=== PATIENT | female | born 1975 | race Caucasian/White ===

== ENCOUNTER 2021-05-29 10:59 | Emergency (ER) | payer BC, SELFPAY ==
[2021-05-29 11:08] VITALS: BP 142/90; PULSE 105; RESP 16; TEMP 35.8; O2SAT 100
--- NOTE | 2021-05-29 13:20 | PC.NURSE ---
PT RE EVAL IN TRIAGE, PT REPORTS ONLY CHANGE THROAT IS GETTING DRY. PT IS ABLE TO SPEAK IN FULL SENTENCE, DENIES SOB, AND ABLE TO MAINTAIN SALIVA.
[2021-05-29 13:22] VITALS: BP 133/73; PULSE 68; RESP 18; TEMP 35.8; O2SAT 90
[2021-05-29 14:54] VITALS: BP 128/63; PULSE 75; RESP 18; TEMP 36.7; O2SAT 100
--- NOTE | 2021-05-29 15:02 | ED.GENADULT ---
HPI - General Adult General Chief complaint: Skin/Abscess/Foreign Body Stated complaint: Pill stuck in throat Time Seen by Provider: 05/29/21 14:52 History of Present Illness HPI narrative: 45-year-old female with history of esophageal stricture and EoE presented to the emergency department for evaluation of a foreign body sensation in her esophagus. Patient states that a few days ago she was swallowing some Tylenol and felt that the pill got stuck. Patient states since that time she has been able to tolerate her own saliva. Patient can also drink liquids and follow a soft food diet. Patient does have follow-up with her GI physician on Friday. Patient does have the diagnosis of EOE. Patient does take omeprazole for this but states over the last few days she has been unable to take the medication. Related Data Allergies Allergy/AdvReac Type Severity Reaction Status Date / Time No Known Allergies Allergy Verified 05/29/21 15:02 Review of Systems Review of Systems: CONSTITUTIONAL: Denies fever, chills, or sweats. ENT: Denies rhinorrhea, congestion, sore throat, or otalgia. CARDIOVASCULAR: Denies chest pain, palpitations, or edema. RESPIRATORY: Denies cough or dyspnea. GASTROINTESTINAL: Denies abdominal pain, nausea, vomiting, or diarrhea. GENITOURINARY: Denies dysuria or hematuria. SKIN: Denies rash or itching. MUSCULOSKELETAL: Denies back pain, joint pain, or myalgia. NEUROLOGIC: Denies headache, numbness, or weakness. PSYCHIATRIC: Denies anxiety or depression. PMFSH Past Medical History Medical History Eosinophilic esophagitis Family History Family History Mother Family history of pancreatic disease Other Diabetes mellitus Family history of mental disorder Social History Social History Smoking status: Never smoker Alcohol intake: current Exam Narrative: APPEARANCE: Well appearing, no pain in distress, well-nourished. Head normocephalic atraumtaic. EYES: PERRLA/EOMI, conjunctivae clear. NOSE: Normal no drainage THROAT: No significant abnormality NECK: Supple. No adenopathy, no masses. SKIN:: Warm, dry. Normal Color PSYCHIATRIC: Normal affect/mood, normal interaction with parents. Course Course Emergency Course: Patient was able to swallow her own saliva in the emergency department. Patient did decline a GI cocktail for symptomatic treatment. Patient also declined a prescription for omeprazole suspension. Patient was unhappy with not getting a scope in the emergency department. I did attempt to explain to her that an emergent endoscopy is not indicated at this point. I did discuss reasons to return to the emergency department including worsening symptoms. I also discussed ways to help improve her symptoms. While patient does have a history of EOE and has required esophageal dilation of the past I think the majority of her symptoms today are possibly due to a pill esophagitis rather than obstruction. Patient states that she will have close follow-up with her GI physician. Vital Signs Vital signs: Vital Signs Temperature 96.4 F L 05/29/21 11:08 Pulse Rate 105 H 05/29/21 11:08 Respiratory Rate 16 05/29/21 11:08 Blood Pressure 142/90 H 05/29/21 11:08 Pulse Oximetry 100 05/29/21 11:08 Temperature 98.1 F 05/29/21 14:54 Pulse Rate 75 05/29/21 14:54 Respiratory Rate 18 05/29/21 14:54 Blood Pressure 128/63 05/29/21 14:54 Pulse Oximetry 100 05/29/21 14:54 Medical Decision Making MDM Narrative Medical decision making narrative: Suspect pill esophagitis. Patient declined a GI cocktail in the emergency department. And patient declined switching her medications to a suspension. Medical Records Medical records reviewed: Yes I reviewed the external patient's medical records. Vital Signs Vital Signs: Vital Signs
--- NOTE | 2021-05-29 15:36 | PC.NURSE ---
Pt at intake desk asking about dc paperwork, pt reports I just went to the bathroom out here and went outside for a walk. Pt given dc instructions and verbalized understanding.
== END 2021-05-29 15:33 | disposition home or self-care (01) ==
PROVIDERS: Emergency Provider Emergency Medicine; PCP Urology
DX: K20.80 Other esophagitis without bleeding (principal); K20.0 Eosinophilic esophagitis
CPT/HCPCS: 99281

== ENCOUNTER 2021-06-25 00:27 | Day surgery (SDC) | payer BC, SELFPAY ==
[2021-06-06 14:31] VITALS: BMI 27.4
[2021-06-25] VITALS (9 sets, daily range): BP systolic 113–134; BP diastolic 67–89; PULSE 50–76; RESP 17–24; TEMP 36.3; O2SAT 99–100
--- NOTE | ~2021-06-25 | XR_ITS ---
EXAMINATION: XR esophogram water soluble DATE: 06/25/2021 14:26 INDICATION: Neck and chest pain after esophageal dilatation. TECHNIQUE: The patient drank water-soluble contrast. Fluoroscopy of the hypopharynx and esophagus was performed. Fluoroscopy exposure time was 1.7 minutes. The total number of images was 756. COMPARISON: None. FINDINGS: There is no mass or stricture of the esophagus. No perforation. Esophageal motility is norm al. There is a small sliding hiatal hernia. IMPRESSION: 1. Small sliding hiatal hernia. Reviewed, dictated and finalized at location A. PATIONAL THERAPY INSTRUCTOR
--- NOTE | 2021-06-25 10:27 | PM.HPGS ---
History of Present Illness History of Present Illness Consent: Risks, benefits, and alternatives have been discussed and questions answered. Patient agrees to proceed with procedure. Chief complaint: dysphagia Narrative: Elizabeth Rayo is a 45 year old female with hx of asthma seen in office for c/o dysphagia. She had an EGD by myself in 2019 with moderate stenosis at the esophageal cardia that was dilated with 15-18 mm balloon which did help for quite some time. Her GE junction and mid-esophageal bx are suggestive of EOE with increased eosinophil greater then 15 per high-power field (recs reviewed). She is currently on omeprazole 40 mg daily. States that over the past 2-3 months that the dysphagia has gotten progressively worse, states it even difficult to swallow water and pills. Reports dysphagia starts in upper to mid-neck area down to mid chest. Reports intermittent vomiting 2/2 dysphagia. Reports increase chronic cough and last 2 days with dry throat in the AM. Reports recent ER visit for Tylenol stuck in throat but was told there was nothing they could do for her and was sent home. She denies any nausea or GERD symptoms. No is a non-smoker. Review of Systems Review of Systems: All systems reviewed & are unremarkable except as noted in HPI and below PMFSH Past Medical History Medical History Asthma Eosinophilic esophagitis Overweight (BMI 25.0-29.9) Family History Family History Mother Family history of pancreatic disease Other Diabetes mellitus Family history of mental disorder Social History Social History Smoking status: Never smoker Alcohol intake: current Alcohol use details: 1 or 2 drinks a year Substance use: never Substance use type: does not use Living arrangements: with family Spiritual care concerns: No Meds Home Medications and Allergies Home Medications Medication Instructions Recorded Confirmed Type albuterol sulfate 90 mcg/actuation 2 puff INHALATION Q4-6H PRN #8.5 g 05/11/21 06/06/21 Rx aerosol inhaler omeprazole 40 mg capsule,delayed 40 mg PO DAILY #30 cap 05/11/21 06/06/21 Rx release fluticasone propionate 220 2 puff INHALATION Q12H 28 Days #12 06/01/21 06/06/21 Rx mcg/actuation HFA aerosol inhaler g Allergies Allergy/AdvReac Type Severity Reaction Status Date / Time No Known Allergies Allergy Verified 06/25/21 12:19 Assessment and Plan Assessment and plan (1) Dysphagia: Code(s): R13.10 - Dysphagia, unspecified Status: Acute Assessment and Plan: EGD with possible biopsy or dilatation or cautery.
--- NOTE | 2021-06-25 12:19 | WPDANESEPPF ---
Anes - Initial Pre Proc Eval Procedure: Operation Date: 06/25/21 13:00 Proposed Procedures p Esophagogastroduodenoscopy - Brent Lincoln MD Date/Time: 06/25/21 12:19 Surgeon: Brent Lincoln MD Pre Op Diagnosis: dysphagia Patient Data Age: 45 Gender: F Height: 1.73 m Weight: 82 kg Allergies Allergy/AdvReac Type Severity Reaction Status Date / Time No Known Allergies Allergy Verified 06/25/21 12:19 Home Medications Medication Instructions Recorded Confirmed Type albuterol sulfate 90 mcg/actuation 2 puff INHALATION Q4-6H PRN #8.5 g 05/11/21 06/06/21 Rx aerosol inhaler omeprazole 40 mg capsule,delayed 40 mg PO DAILY #30 cap 05/11/21 06/06/21 Rx release fluticasone propionate 220 2 puff INHALATION Q12H 28 Days #12 06/01/21 06/06/21 Rx mcg/actuation HFA aerosol inhaler g Patient hx anesthesia problems: none Family hx anesthesia problems: none Results Review: All pre-operative results and documents have been reviewed as part of the pre-operative evaluation. [facility] Past Medical History Medical History (Updated 06/25/21 @ 12:21 by Darshan Deal DO) Asthma Eosinophilic esophagitis Overweight (BMI 25.0-29.9) Family History Family History Mother Family history of pancreatic disease Other Diabetes mellitus Family history of mental disorder Social History Social History Smoking status: Never smoker Alcohol intake: current Alcohol use details: 1 or 2 drinks a year Substance use: never Substance use type: does not use Living arrangements: with family Spiritual care concerns: No Anes - Eval Final PreProcedure Day of Procedure 06/25/21 12:19 Patient weight: overweight Heart: regular rate and rhythm Lungs: clear to auscultation and normal air movement Airway: Mallampati scale class II Neurological: alert and oriented Last oral intake: >/= 8 hours ASA classification: II Emergent: no Anesthetic plan: proceed Anesthesia type and monitoring: general GIVS and standard monitoring Results Review: All pre-operative results and documents have been reviewed as part of the pre-operative evaluation. Informed Consent: The patient's anesthetic plan and its attendant risks and benefits were discussed with the patient/family/POA. Questions were solicited and answers provided to the satisfaction of the patient/family/POA.
[2021-06-25] MEDS: LACTATED RINGERS 1,000 ML 150 ML IV CONT (12:40)
--- NOTE | 2021-06-25 12:58 | SUR.OPER ---
CRE Esophageal Balloon 15-18 lot#[id number], exp. 03/02/2023
--- NOTE | 2021-06-25 13:50 | SUR.PHASEII ---
Pt vomiting after coughing up phlegm. Zofran ordered by Dr. Lincoln. Pt also complains of wheezing upper airway for which she states she takes an albuterol inhaler. Albuterol neb treatment ordered.
[2021-06-25] MEDS: ONDANSETRON INJ 4 MG/2 ML VIAL IV PUSH (13:53)
[2021-06-25] MEDS: ALBUTEROL SULFATE NEB 2.5 MG/3 ML INH 1.25 MG INHALATION (14:03)
--- NOTE | 2021-06-25 14:11 | SUR.PHASEII ---
pt to radiology for esophagram per Dr. Lincoln's order
--- NOTE | 2021-06-25 14:31 | SUR.PHASEII ---
Pt back from radiology. Pt states relief from wheezing upper airway clear to ausculation. Nausea resolved
== END 2021-06-25 14:50 | disposition home or self-care (01) ==
PROVIDERS: PCP Family Medicine; Visit Provider Internal Medicine Gastroenterology
PROC: 0DJ08ZZ Inspection of Upper Intestinal Tract, Via Natural or Artificial Opening Endoscopic (ICD-10-PCS; CPT 43235; principal; 2021-06-25 13:00)
DX: K22.2 Esophageal obstruction (principal); K20.90 Esophagitis, unspecified without bleeding; K20.80 Other esophagitis without bleeding; J45.909 Unspecified asthma, uncomplicated; Z79.51 Long term (current) use of inhaled steroids
CPT/HCPCS: 43249; 43239; 74220; 88305; 94640; C1726; J2405; J2704; J7120

== ENCOUNTER 2021-06-27 10:21 | Emergency (ER) | payer BC, SELFPAY ==
--- NOTE | ~2021-06-27 | XR_ITS ---
XR chest 2V DATE: 06/27/2021 13:27 INDICATION: Spitting up blood. Pain with eating. Endovascular be on 06/25/2021. TECHNIQUE: PA and lateral views COMPARISON: 07/12/2021 water-soluble esophagram FINDINGS: Normal heart size. No hilar or mediastinal enlargement. No pulmonary infiltrate or consolid ation, pleural effusion or pulmonary vascular congestion or pneumothorax. Radiopaque contrast material is noted in the included splenic flexure of the colon from the recent es ophagram procedure. IMPRESSION: No active cardiopulmonary disease Reviewed, dictated and finalized at location A. NESS CENTER MANAGER
--- NOTE | ~2021-06-27 | CT_ITS ---
EXAMINATION: CT abdomen pelvis w con DATE: 06/27/2021 14:40 INDICATION: Epigastric abdominal pain post esophageal dilation TECHNIQUE: Computed tomography (CT) of the abdomen and pelvis was performed with 100 mL Omnipaque-350 intravenous contrast. Automated exposure control and iterative reconstruction technique were employe d. The dose-length product was 544.43 mGy-cm. COMPARISON: None FINDINGS: Lung bases are clear. Heart size is normal. No pericardial or pleural effusion. Gastroesophageal junc tion is unremarkable with no adjacent stranding, fluid or extraluminal gas. A few small cysts measuri ng 4 mm in the right hepatic lobe, left millimeter in the spleen and 5 mm in the right kidney. Gallbl adder, pancreas, left kidney and bilateral adrenal glands are normal. Small bowel is normal with no o bstruction. Oral contrast material seen throughout the normal colon and normal pancreas. Subtle small hypoenhancing uterine fibroids the largest on the anterior fundus measuring 2 cm in maximal diameter . Bladder is normal. 1.4 cm right adnexal cyst/follicle. No free intraperitoneal gas or fluid. No pat hologically enlarged abdominal or pelvic lymphadenopathy. IMPRESSION: 1. No acute intra-abdominal/pelvic process. Specifically gastroesophageal junction appears unremarkab le with no extraluminal stranding, fluid or gas to suggest perforation. 2. Fibroid uterus. Reviewed, dictated and finalized at location B. NT STORAGE WORKER IMPRESSION: 1. No acute intra-abdominal/pelvic process. Specifically gastroesophageal junct ion appears unremarkable with no extraluminal stranding, fluid or gas to sugges t perforation. 2. Fibroid uterus.
[2021-06-27 10:34] VITALS: BP 117/96; PULSE 89; RESP 16; TEMP 37.2; O2SAT 97
[2021-06-27 12:51] VITALS: BP 120/67; PULSE 68; RESP 18; O2SAT 100
--- NOTE | 2021-06-27 12:55 | ECG_ITS ---
Measurements Intervals [place] Rate: 56 P: 24 OR: 184 QRS: 36 QRSD: 89 T: 19 QT: 415 QTc: 403 Interpretive Statements SINUS BRADYCARDIA LOW QRS VOLTAGE IN PRECORDIAL LEADS BASELINE ARTIFACT- II, III BORDERLINE ECG Electronically Signed On 06-27-2021 14:24:07 [employer]CUE by Noel Garcia D.O.
--- NOTE | 2021-06-27 12:56 | ED.GENADULT ---
HPI - General Adult General Chief complaint: Unspecified Stated complaint: post endo pain Time Seen by Provider: 06/27/21 12:47 Source: patient, RN notes reviewed and old records reviewed Mode of arrival: ambulatory Limitations: no limitations History of Present Illness HPI narrative: This is a 45 year old female who presents for evaluation of epigastric pain s/p upper endoscopy. Patient has history of eosinophilic esophagitis and she had an upper endoscopy with dilation performed 2 days ago . She developed epigastric abdominal pain after her endoscopy. She states she had an xray performed after her procedure to evaluated her pain. She was discharged on liquid diet for 1 day and she started eating solids yesterday. Last night she was able to eat small amount of fish. This morning she ate chicken nuggets and her abdominal pain worsened. She states she called Dr. Lantigua's office and she was told to come to ER. She denies nausea, vomiting or fever. She reports brown loose stool yesterday. She also reports coughing small amount pink tinged phlegm today. She denies epistaxis, runny nose, or sinus congestion. She denies taking blood thinning medication Related Data Allergies Allergy/AdvReac Type Severity Reaction Status Date / Time No Known Allergies Allergy Verified 06/25/21 12:19 Review of Systems Review of Systems: All systems reviewed & are unremarkable except as noted in HPI and below PMFSH Past Medical History Medical History (Updated 06/27/21 @ 15:10 by Tequila Cortez MD) Asthma Eosinophilic esophagitis Overweight (BMI 25.0-29.9) Surgical History Surgical History (Updated 06/27/21 @ 13:04 by Tqeuila Cortez MD) H/O tubal ligation Family History Family History Mother Family history of pancreatic disease Other Diabetes mellitus Family history of mental disorder Social History Social History Smoking status: Never smoker Alcohol intake: current Alcohol use details: 1 or 2 drinks a year Substance use: never Substance use type: does not use Spiritual care concerns: No Exam Narrative: GENERAL: Well-appearing, well-nourished, and in no acute distress. HEAD: Normocephalic, atraumatic EYES: PERRLA and EOMI, conjunctiva clear without discharge THROAT:Mucous membranes moist, Oropharynx normal without erythema, exudate, peritonsillar swelling or fluctuance NECK: Supple, without lymphadenopathy or mass RESPIRATORY: No respiratory distress, Airway patent, Respirations non-labored, Clear to auscultation without rales, rhonchi or wheeze HEART: Regular rate and rhythm. No murmur heard. Normal peripheral pulses. ABDOMEN: Soft, nontender, nondistended, normal active bowel sounds. No masses. No rebound or guarding, No organomegaly. EXTREMITIES: No edema, normal strength with full range of motion. SKIN: Warm, dry, normal color without rash NEURO: Alert and oriented x3. CN 2-12 grossly intact. No focal deficits. PSYCH: Normal mood and affect. Course Consultations Consultation #1: I discussed case with Dr. lantigua . Patient's labs and CT are unremarkable. She has no perforation. He recommends patient eat clear liquid until he talks to her tomorrow. Date: 06/27/21 Time: 15:05 Vital Signs Vital signs: Vital Signs Temperature 99 F 06/27/21 10:34 Pulse Rate 89 06/27/21 10:34 Respiratory Rate 16 06/27/21 10:34 Blood Pressure 117/96 H 06/27/21 10:34 Pulse Oximetry 97 06/27/21 10:34 Temperature 99 F 06/27/21 10:34 Pulse Rate 68 06/27/21 12:51 Respiratory Rate 18 06/27/21 12:51 Blood Pressure 120/67 06/27/21 12:51 Pulse Oximetry 100 06/27/21 12:51 Medical Decision Making Vital Signs Vital Signs: Vital Signs Temperature 99 F 06/27/21 10:34 Pulse Rate 89 06/27/21 10:34 Respiratory Rate 16 06/27/21 10:34 Blood Pressure 117/96 H
[2021-06-27 13:26] LABS: Basophils Absolute Auto 0.1 K/mm3 (0.0-0.1); Eosinophils Absolute Auto 0.4 K/mm3 (0-0.3); Eosinophils Percent Auto 5.9 % (0-4.4); Hematocrit 35.5 % (37.0-47.0); Immature Granulocyte Absolute 0.04 K/mm3 (0.00-0.031); Immature Granulocyte Percent A 0.6 % (0-0.5); Lymphocytes Absolute Auto 1.68 K/mm3 (0.9-3.2); Lymphocytes Percent Auto 24.1 % (18.3-44.2); Mean Corpuscular Hemoglobin 26.8 pg (26-34); Mean Corpuscular Volume 86.6 fl (80-100); Mean Platelet Volume 10.2 fl (7.4-10.4); Monocytes Absolute Auto 0.4 K/mm3 (0.1-0.6); Monocytes Percent Auto 5.9 % (2.6-8.5); Neutrophils Absolute Auto 4.4 K/mm3 (1.3-6.7); Neutrophils Percent Auto 62.5 % (45.5-73.1); Platelet Count Result 304 k/mm3 (150-375); Red Cell Distribution Width 15.9 % (11.5-14.5)
[2021-06-27 13:36] LABS: Alanine Aminotransferase 16 U/L (4-35); Albumin Level 4.3 g/dL (3.5-5.1); Alkaline Phosphatase 83 U/L (38-126); Anion Gap 8 mmol/L (8-16); Aspartate Amino Transferase 26 U/L (14-36); Bilirubin,Total 0.7 mg/dL (0.2-1.3); Blood Urea Nitrogen 16 mg/dL (7-17); Calcium 9.1 mg/dL (8.4-10.2); Carbon Dioxide 24 mmol/L (22-30); Chloride 106 mmol/L (98-107); Estimated CRCL calculation 79 ml/min; Estimated Glomerular Filt Rate > 60; Glucose 90 mg/dL (65-110); Lipase 60 U/L (23-300); Potassium 4.1 mmol/L (3.4-5.0); Sodium 138 mmol/L (137-145)
[2021-06-27] MEDS: PANTOPRAZOLE SODIUM IV 40 MG VIAL IV PUSH (13:44)
[2021-06-27 13:57] LABS: Prothrombin Time 13.3 Seconds (11.1-14.7)
[2021-06-27 13:58] LABS: Partial Thromboplastin Time 30.9 SECONDS (22.3-36.8)
== END 2021-06-27 16:29 | disposition home or self-care (01) ==
PROVIDERS: Emergency Provider General Practice
DX: R10.13 Epigastric pain (principal); R00.1 Bradycardia, unspecified; J45.909 Unspecified asthma, uncomplicated
CPT/HCPCS: 36415; 71046; 74177; 80053; 83690; 85025; 85610; 85730; 86850; 86900; 86901; 93005; 96374; 99284; C9113; Q9967

== ENCOUNTER 2022-10-03 10:21 | Emergency (ER) | payer BC, SELFPAY ==
--- NOTE | ~2022-10-03 | CT_ITS ---
EXAMINATION: CT brain wo con DATE: 10/03/2022 12:38 INDICATION: Headache. Dizziness. TECHNIQUE: Computed tomography (CT) of the head was performed without intravenous contrast. The mA wa s adjusted according to patient size. Iterative reconstruction technique was employed. The dose-lengt h product was 605.33 mGy-cm. COMPARISON: Head CT 09/16/2012 FINDINGS: There is no intracranial hemorrhage, acute infarction, or abnormal intracranial mass lesion . The ventricles are normal in size. There is mild mucosal thickening in the paranasal sinuses. There is anteroposterior elongation of the ocular globes. There is a trace right mastoid effusion. IMPRESSION: 1. Normal brain. Reviewed, dictated and finalized at location A. IMPRESSION: 1. Normal brain.
--- NOTE | ~2022-10-03 | XR_ITS ---
EXAMINATION: XR chest 1V DATE: 10/03/2022 12:48 INDICATION: Dizziness. TECHNIQUE: A single frontal view of the chest was obtained. COMPARISON: Chest 2 views 06/27/2021, CT abdomen and pelvis 06/27/2021 FINDINGS: The chest demonstrates clear lungs without pneumonia, pleural effusion, or pneumothorax. Th e heart size is normal. IMPRESSION: 1. No acute cardiopulmonary disease. Reviewed, dictated and finalized at location A.
[2022-10-03 10:22] VITALS: BP 140/82; PULSE 64; RESP 19; O2SAT 99
[2022-10-03 10:51] LABS: Basophils Absolute Auto 0.1 K/mm3 (0.0-0.1); Basophils Percent Auto 1.4 % (0.2-1.2); Eosinophils Absolute Auto 0.4 K/mm3 (0-0.3); Eosinophils Percent Auto 6.5 % (0-4.4); Hematocrit 37.1 % (37.0-47.0); Immature Granulocyte Absolute 0.03 K/mm3 (0.00-0.031); Immature Granulocyte Percent A 0.5 % (0-0.5); Lymphocytes Absolute Auto 1.24 K/mm3 (0.9-3.2); Lymphocytes Percent Auto 21.8 % (18.3-44.2); Mean Corpuscular HGB Conc 29.6 g/dl (32-36); Mean Corpuscular Hemoglobin 24.2 pg (26-34); Mean Corpuscular Volume 81.5 fl (80-100); Mean Platelet Volume 9.8 fl (7.4-10.4); Monocytes Absolute Auto 0.3 K/mm3 (0.1-0.6); Monocytes Percent Auto 5.8 % (2.6-8.5); Neutrophils Absolute Auto 3.6 K/mm3 (1.3-6.7); Platelet Count Result 283 k/mm3 (150-375); Red Blood Count 4.55 M/mm3 (4.2-5.4); Red Cell Distribution Width 16.6 % (11.5-14.5); White Blood Count 5.7 K/mm3 (4.5-10.0)
[2022-10-03 10:57] LABS: Appearance Urine Clear (Clear); Bilirubin Urine Negative (Negative); Blood Urine Negative (Negative); Color Urine Yellow (Yellow); Glucose Urine UA Negative (Negative); Ketones Urine Negative (Negative); Leukocyte Esterase Ur Negative LEU/UL (Negative); Nitrate Urine Negative (Negative); Protein Urine Negative (Negative); Specific Grav Ur 1.011 (1.001-1.035); Urobilinogen Urine 0.2 mg/dL (<2.0)
[2022-10-03 11:04] LABS: Alanine Aminotransferase 24 U/L (6-35); Albumin Level 4.1 g/dL (3.5-5.1); Alkaline Phosphatase 94 U/L (38-126); Anion Gap 7 mmol/L (8-16); Aspartate Amino Transferase 32 U/L (14-36); Bilirubin,Total 0.9 mg/dL (0.2-1.3); Blood Urea Nitrogen 14 mg/dL (7-17); Calcium 8.7 mg/dL (8.4-10.2); Carbon Dioxide 25 mmol/L (22-30); Chloride 107 mmol/L (98-107); Estimated CRCL calculation 100 ml/min; Estimated Glomerular Filt Rate > 60; Glucose 86 mg/dL (65-110); Lipase 49 U/L (23-300); Potassium 3.8 mmol/L (3.4-5.0); Sodium 139 mmol/L (137-145)
[2022-10-03 11:08] LABS: Add Urine Microscopic? NO
[2022-10-03 11:26] LABS: Anisocytosis 1+ (NORMAL); Hypochromasia 1+ (NORMAL); Platelet Estimate Adequate (Adequate); Schistocytes None Seen (NORMAL)
--- NOTE | 2022-10-03 12:18 | ED.DIZZY ---
HPI - Dizziness General Chief Complaint: Dizziness Stated Complaint: dizziness Time Seen by Provider: 10/03/22 11:45 Source: patient Mode of arrival: ambulatory Limitations: no limitations History of Present Illness HPI Narrative: 47 years old female came to the emergency room because of headache, right occipital radiating to the right frontal for the last 3 weeks, frontal headache gets better on Advil, not occipital one. Headache get worse sometime if she bends over, or laying down on the right side of her head. She denies any aggravating factors. Patient been having intermittent lightheadedness and dizziness last for few minutes today got worse and has been steady since until arrival to the emergency room. The dizziness get worse with head movement, body movement or any movement. In the form of a spinning associated with nausea and vomiting. Patient unable to get up and walk because of the severity of dizziness. She denies any fever, chills, chest pain, shortness of breath, back pain or abdominal pain. Related Data Home Medications Medication Instructions Recorded Confirmed cholecalciferol (vitamin D3) 25 25 mcg PO DAILY 08/27/22 08/27/22 mcg (1,000 unit) capsule multivitamin (Daily Multi-Vitamin 1 tablet PO DAILY 08/27/22 08/27/22 tablet) Allergies Allergy/AdvReac Type Severity Reaction Status Date / Time No Known Allergies Allergy Verified 10/03/22 10:31 Review of Systems Review of Systems: All systems reviewed & are unremarkable except as noted in HPI and below PMFSH Past Medical History Medical History Asthma Eosinophilic esophagitis Overweight (BMI 25.0-29.9) Surgical History Surgical History H/O tubal ligation Family History Family History Mother Family history of pancreatic disease Other Diabetes mellitus Family history of mental disorder Social History Social History Smoking status: Never smoker Alcohol intake: current Alcohol use details: 1 or 2 drinks a year Substance use: never Substance use type: does not use Lack of Transportation: No Lack of Food: Never True Current Housing: I Have Housing Concerned About Future Housing: No Difficulty Paying Gas/Electric Bills: No Difficulty Paying for Meds: No Currently Unemployed: No Education: Trade/Vocational Certificate Difficulty w/ Childcare or Family Care: No Living arrangements: with family Occupation/Education: occupation Gender identity (if verbalized by the patient): Female Spiritual care concerns: No Agree to blood products: Yes Exam Narrative: General appearance: Well-developed, well-nourished Skin: Normal color Head: Diffuse tenderness to right occipital area, no bruises, no hematoma or erythema. Eyes: Clear conjunctiva ENT: Oropharynx normal, ears normal, nose normal Neck: Supple, nontender Chest and respiratory: Airway patent, no respiratory distress, no accessory muscle use Heart: Regular rate/rhythm Abdomen: Soft, nontender, no organomegaly, quiet bowel sounds Vascular: Normal peripheral pulses, normal capillary refill. Musculoskeletal: Normal range of motion, nontender back Neurologic: Alert and oriented ?3, BOARD FILLER is normal as tested, no gross motor deficit Course Vital Signs Vital signs: Vital Signs Pulse Rate 64 10/03/22 10:22 Respiratory Rate 19 10/03/22 10:22 Blood Pressure 140/82 10/03/22 10:22 Pulse Oximetry 99 10/03/22 10:22 Oxygen Delivery Room Air 10/03/22 10:22
--- NOTE | 2022-10-03 12:22 | ECG_ITS ---
Measurements Intervals [place] Rate: 53 P: 44 [place]: 185 QRS: 59 QRSD: 83 T: 52 QT: 439 QTc: 414 Interpretive Statements SINUS BRADYCARDIA WITH SINUS ARRHYTHMIA BORDERLINE ECG COMPARED TO ECG 06/27/2021 14:13:44 SINUS ARRHYTHMIA NOW PRESENT Electronically Signed On 10-04-2022 16:23:15 CDT by Kevin Xiong M.D.
[2022-10-03] MEDS: ONDANSETRON INJ 4 MG/2 ML VIAL 8 MG IV PUSH (12:49)
[2022-10-03] MEDS: diazePAM INJ (*CRX) 10 MG/2 ML SYRINGE 5 MG IV PUSH (12:49)
[2022-10-03] MEDS: MECLIZINE HCL 25 MG TABLET PO (12:50)
[2022-10-03] MEDS: KETOROLAC 30 MG/ML VIAL (*BKC) IV PUSH (13:27)
--- NOTE | 2022-10-03 14:12 | PC.NURSE ---
pt reports no relief of dizziness from medications
[2022-10-03 14:44] VITALS: BP 106/63; PULSE 57; RESP 16; O2SAT 98
--- NOTE | 2022-10-03 15:00 | PC.NURSE ---
pt unable to sit up in bed or stand without feeling dizzy or nauseated. EMILIANO Snell made aware.
[2022-10-03 15:45] VITALS: BP 120/62; PULSE 68; RESP 13; O2SAT 98
== END 2022-10-03 16:08 | disposition home or self-care (01) ==
PROVIDERS: Emergency Provider Emergency Medicine; PCP Family Medicine
DX: R51.9 Headache, unspecified (principal); R42 Dizziness and giddiness; J45.909 Unspecified asthma, uncomplicated; K20.0 Eosinophilic esophagitis; E66.3 Overweight; Z68.29 Body mass index [BMI] 29.0-29.9, adult
CPT/HCPCS: 36415; 70450; 71045; 80053; 81003; 81025; 83690; 85025; 93005; 96374; 96375; 99284; A9270; J1885; J2405; J3360

== ENCOUNTER 2023-07-10 09:01 | Day surgery (SDC) | payer SELFPAY ==
[2023-07-10] VITALS (10 sets, daily range): BP systolic 104–138; BP diastolic 52–84; PULSE 62–76; RESP 16–24; TEMP 37.1; O2SAT 94–100
--- NOTE | ~2023-07-10 | XR_ITS ---
EXAMINATION: XR soft tissue neck DATE: 07/10/2023 12:40 INDICATION: Steak stuck in esophagus. TECHNIQUE: 2 views of the neck soft tissues were obtained. COMPARISON: None. FINDINGS: The adenoids, palatine tonsils, epiglottis, prevertebral soft tissues, and glottis are norm al. There is no radiopaque foreign body. IMPRESSION: 1. Normal neck soft tissues. Reviewed, dictated and finalized at location E. EL RIFLER BROACH
--- NOTE | ~2023-07-10 | XR_ITS ---
EXAMINATION: XR esophogram water soluble DATE: 07/10/2023 12:53 INDICATION: Foreign body sensation in the esophagus TECHNIQUE: The patient drank water-soluble contrast. Fluoroscopic spot radiographs of the esophagus w ere obtained. Fluoroscopy exposure time was 1.0 minutes. A total of 260 fluoroscopic images were rec orded. COMPARISON: None. FINDINGS: There is an intraluminal obstructing approximately 2 x 1.5 x 1.5 cm mass with smooth margin s in the distalmost esophagus consistent with reported history suspicious for an impacted food bolus. No contrast is seen extending beyond the obstructing lesion however patient developed almost immedia te nausea and vomiting at which point the procedure was terminated. The more proximal esophagus appea rs normal with normal mobility. IMPRESSION: 1. 2 x 1.5 x 1.5 cm obstructing intraluminal mass at the distal most esophagus consistent with clinic al history supportive of an impacted food bolus. Reviewed, dictated and finalized at location A. R MAKING MACHINE OPERATOR IMPRESSION: 1. 2 x 1.5 x 1.5 cm obstructing intraluminal mass at the distal most esophagus consistent with clinical history supportive of an impacted food bolus.
[2023-07-10 09:42] LABS: Basophils Absolute Auto 0.1 K/mm3 (0.0-0.1); Basophils Percent Auto 1.4 % (0.2-1.2); Eosinophils Absolute Auto 0.5 K/mm3 (0-0.3); Eosinophils Percent Auto 6.5 % (0-4.4); Hematocrit 38.3 % (37.0-47.0); Hemoglobin 11.1 g/dL (12.0-15.0); Immature Granulocyte Absolute 0.02 K/mm3 (0.00-0.031); Immature Granulocyte Percent A 0.3 % (0-0.5); Lymphocytes Absolute Auto 1.86 K/mm3 (0.9-3.2); Lymphocytes Percent Auto 24.3 % (18.3-44.2); Mean Corpuscular Hemoglobin 23.9 pg (26-34); Mean Corpuscular Volume 82.4 fl (80-100); Mean Platelet Volume 10.3 fl (7.4-10.4); Monocytes Absolute Auto 0.5 K/mm3 (0.1-0.6); Monocytes Percent Auto 6.3 % (2.6-8.5); Neutrophils Absolute Auto 4.7 K/mm3 (1.3-6.7); Neutrophils Percent Auto 61.2 % (45.5-73.1); Platelet Count Result 347 k/mm3 (150-375); Red Blood Count 4.65 M/mm3 (4.2-5.4); White Blood Count 7.7 K/mm3 (4.5-10.0)
[2023-07-10 09:52] LABS: Alanine Aminotransferase 26 U/L (6-35); Albumin Level 4.6 g/dL (3.5-5.1); Alkaline Phosphatase 96 U/L (38-126); Anion Gap 11 mmol/L (8-16); Aspartate Amino Transferase 33 U/L (14-36); Bilirubin,Total 1.3 mg/dL (0.2-1.3); Blood Urea Nitrogen 13 mg/dL (7-17); Calcium 9.6 mg/dL (8.4-10.2); Carbon Dioxide 25 mmol/L (22-30); Chloride 107 mmol/L (98-107); Estimated CRCL calculation 77 ml/min; Estimated Glomerular Filt Rate > 60; Glucose 94 mg/dL (65-110); Lipase 73 U/L (23-300); Potassium 3.8 mmol/L (3.4-5.0); Sodium 143 mmol/L (137-145)
[2023-07-10 10:02] LABS: Appearance Urine Cloudy (Clear); Bacteria Urine Rare /hpf; Bilirubin Urine Negative (Negative); Blood Urine Negative (Negative); Color Urine Yellow (Yellow); Glucose Urine UA Negative (Negative); Ketones Urine Trace mg/dL (Negative); Leukocyte Esterase Ur 1+ LEU/UL (Negative); Nitrate Urine Negative (Negative); Non Pathogenic Casts 0-2; Protein Urine Trace mg/dL (Negative); Specific Grav Ur 1.023 (1.001-1.035); Squamous Epithelial Cell Urine Moderate /hpf (Few); pH Urine 7.5 (5.0-9.0)
[2023-07-10 10:05] LABS: Anisocytosis 1+ (NORMAL); Hypochromasia 1+ (NORMAL); Platelet Estimate Adequate (Adequate); Schistocytes None Seen (NORMAL)
[2023-07-10 10:07] LABS: Add Urine Microscopic? YES
--- NOTE | 2023-07-10 11:11 | ED.GENADULT ---
HPI - General Adult General Chief complaint: Nausea/Vomiting/Diarrhea Stated complaint: n/v, hx EOE Time Seen by Provider: 07/10/23 10:42 History of Present Illness HPI narrative: Elizabeth Rayo is a 47 y/o female with reported hx of EoE Eosinophilic esophagitis ,who reports that she has followed up with Dr. Lincoln with GI and has had to have her esophagus stretched about 3-4 times about every 6 months and she states that now it has been about 8 months to a year since she has followed up. She states she has had some minor symptoms over the past few months but had some insurance issues so held off seeking medical care, however last night she ate steak and she started to feel that something got stuck in her esophagus and vomited and now cannot even keep water down. Related Data Home Medications Medication Instructions Recorded Confirmed cholecalciferol (vitamin D3) 25 25 mcg PO DAILY 08/27/22 08/27/22 mcg (1,000 unit) capsule multivitamin (Daily Multi-Vitamin 1 tablet PO DAILY 08/27/22 08/27/22 tablet) Allergies Allergy/AdvReac Type Severity Reaction Status Date / Time shrimp Allergy Difficulty Verified 07/10/23 14:08 Swallowing Review of Systems Review of Systems: CONSTITUTIONAL: Denies fever, chills, or sweats. EYES: Denies visual changes, redness, or discharge. ENT: Denies rhinorrhea, congestion, sore throat, or otalgia.- Reports she feels that she has some stuck in her esophagus since last night and now is unable to keep anything down, she tries to swallow water and vomits quickly afterwards. CARDIOVASCULAR: Denies chest pain, palpitations, or edema. RESPIRATORY: Denies cough or dyspnea. GASTROINTESTINAL: Denies abdominal pain, nausea, vomiting, or diarrhea. GENITOURINARY: Denies dysuria or hematuria. SKIN: Denies rash or itching. MUSCULOSKELETAL: Denies back pain, joint pain, or myalgia. NEUROLOGIC: Denies headache, numbness, dizziness, or weakness. PSYCHIATRIC: Denies anxiety or depression. [facility] Past Medical History Medical History (Updated 07/10/23 @ 20:15 by Valentina Kevin, ISAIAH) Asthma Eosinophilic esophagitis Food impaction of esophagus Overweight (BMI 25.0-29.9) Surgical History Surgical History H/O tubal ligation Family History Family History Mother Family history of pancreatic disease Other Diabetes mellitus Family history of mental disorder Social History Social History Smoking status: Never smoker Alcohol intake: current Alcohol use details: 1 or 2 drinks a year Substance use: never Substance use type: does not use Lack of Transportation: No Lack of Food: Never True Current Housing: I Have Housing Concerned About Future Housing: No Difficulty Paying Gas/Electric Bills: No Difficulty Paying for Meds: No Currently Unemployed: No Education: Trade/Vocational Certificate Difficulty w/ Childcare or Family Care: No Living arrangements: with family Occupation/Education: occupation Gender identity (if verbalized by the patient): Female Spiritual care concerns: No Agree to blood products: Yes Exam Narrative: GENERAL: Well-appearing, well-nourished, and in no acute distress. HEAD: Normocephalic, atraumatic. EYES: PERRLA and EOMI. ENT: Nares clear, no rhinorrhea or epistaxis. Mucous membranes moist. Oropharynx without tonsillar hypertrophy exudate or other lesions. Bilateral TMs pearly jiménez nonbulging NECK: Supple. No adenopathy or masses. No carotid bruits or JVD CHEST: Clear to auscultation. No respiratory distress. No wheezes rales or rhonchi HEART: Regular rate and rhythm. No murmur heard. Normal peripheral pulses. ABDOMEN: Soft, nontender, nondistended, normal active bowel sounds. EXTREMITIES: Normal range of motion. No edema. SKIN: Warm, dry, no rash. NEURO: No focal deficits.
[2023-07-10 11:22] LABS: Influenza A QL RT-PCR Negative (Negative); Influenza B QL RT-PCR Negative (Negative); SARS-CoV-2 RNA PCR Negative (Negative)
--- NOTE | 2023-07-10 13:27 | PC.NURSE ---
report given to GI lab. they will be down shortly to get pt.
[2023-07-10] MEDS: LACTATED RINGERS 1,000 ML 150 ML IV CONT (14:00)
--- NOTE | 2023-07-10 14:03 | SUR.OPER ---
Patient pre oped in procedure room 2.
--- NOTE | 2023-07-10 14:12 | PM.HPGS ---
History of Present Illness History of Present Illness Consent: Risks, benefits, and alternatives have been discussed and questions answered. Patient agrees to proceed with procedure. Chief complaint: n/v, hx EOE Narrative: Elizabeth Rayo is a 47 year old female with known history of EoE, last EGD with dilatation last year up to 15mm, now using ppi. here with food bolus after had steak last night, still unable to swallow Review of Systems Constitutional: Constitutional: Denies headache(s) and Denies weakness Eyes: Eyes: Denies blurry vision ENT: Reports Normal hearing present, Denies headache(s) and Denies neck pain Cardiovascular: Cardiovascular: Denies chest pain and Denies dyspnea Respiratory: Respiratory: Denies dyspnea Gastrointestinal: Gastrointestinal: Reports no additional gastrointestinal complaints Genitourinary: Genitourinary: Denies dysuria Musculoskeletal: Musculoskeletal: Denies neck pain Integumentary/Breasts: Skin/Breast: Denies dry skin Neurologic: Reports Normal hearing present, Denies headache(s) and Denies weakness Psychiatric: Psychiatric: Denies anxiety Endocrine: Endocrine: Denies change in body appearance Hematologic/Lymphatic: Hematologic/Lymphatic: Denies easy bleeding Allergic/Immunologic: Allergic/Immunologic: Denies urticaria PMFSH Past Medical History Medical History (Updated 07/10/23 @ 14:13 by Ata Rodriguez MD) Asthma Eosinophilic esophagitis Food impaction of esophagus Overweight (BMI 25.0-29.9) Surgical History Surgical History H/O tubal ligation Family History Family History Mother Family history of pancreatic disease Other Diabetes mellitus Family history of mental disorder Social History Social History Smoking status: Never smoker Alcohol intake: current Alcohol use details: 1 or 2 drinks a year Substance use: never Substance use type: does not use Lack of Transportation: No Lack of Food: Never True Current Housing: I Have Housing Concerned About Future Housing: No Difficulty Paying Gas/Electric Bills: No Difficulty Paying for Meds: No Currently Unemployed: No Education: Trade/Vocational Certificate Difficulty w/ Childcare or Family Care: No Living arrangements: with family Occupation/Education: occupation Gender identity (if verbalized by the patient): Female Spiritual care concerns: No Agree to blood products: Yes Meds Home Medications and Allergies Home Medications Medication Instructions Recorded Confirmed Type cholecalciferol (vitamin D3) 25 25 mcg PO DAILY 08/27/22 08/27/22 History mcg (1,000 unit) capsule multivitamin (Daily Multi-Vitamin 1 tablet PO DAILY 08/27/22 08/27/22 History tablet) diazepam 5 mg tablet (Valium) 5 mg PO TID PRN vertigo #14 tabs 10/03/22 Rx meclizine 25 mg chewable tablet 25 mg PO TID #20 tabs 10/03/22 Rx (Antivert) ondansetron HCl 4 mg tablet 4 mg PO Q4H 3 doses #10 tabs 10/03/22 Rx Allergies Allergy/AdvReac Type Severity Reaction Status Date / Time shrimp Allergy Difficulty Verified 07/10/23 14:08 Swallowing Vital Signs Vital Signs - 24 hr 07/10/23 09:08 07/10/23 11:03 07/10/23 13:05 Temperature 98.7 F Pulse Rate 72 69 73 Respiratory Rate 16 18 16 Blood Pressure 128/74 138/66 130/84 Pulse Oximetry 100 99 99 Oxygen Delivery Room Air 07/10/23 14:00 Temperature 98.7 F Pulse Rate 75 Respiratory Rate 22 H Blood Pressure 134/67 Pulse Oximetry 94 Oxygen Delivery Room Air Exam Const: General: comfortable and no acute distress HENMT: Face/Nose/Sinus: Normal nares present Eyes: General: appearance normal, both eyes and all related structures Neck: Neck: no JVD Resp: Auscultation: clear to auscultation bilaterally Cardio: Rate: regular rate
--- NOTE | 2023-07-10 14:18 | WPDANESEPPF ---
Anes - Initial Pre Proc Eval Procedure: Operation Date: 07/10/23 14:00 Proposed Procedures p Esophagogastroduodenoscopy - Ata Rodriguez MD Date/Time: 07/10/23 14:18 Surgeon: Ata Rodriguez MD Pre Op Diagnosis: n/v, hx EOE Patient Data Age: 47 Gender: F Height: 1.75 m Weight: 73 kg Last Vital Signs Temp 98.7 F 07/10/23 14:00 Pulse 75 07/10/23 14:00 Resp 22 H 07/10/23 14:00 BP 134/67 07/10/23 14:00 Pulse Ox 94 07/10/23 14:00 O2 Del Method Room Air 07/10/23 14:00 Allergies Allergy/AdvReac Type Severity Reaction Status Date / Time shrimp Allergy Difficulty Verified 07/10/23 14:08 Swallowing Home Medications Medication Instructions Recorded Confirmed Type cholecalciferol (vitamin D3) 25 25 mcg PO DAILY 08/27/22 08/27/22 History mcg (1,000 unit) capsule multivitamin (Daily Multi-Vitamin 1 tablet PO DAILY 08/27/22 08/27/22 History tablet) diazepam 5 mg tablet (Valium) 5 mg PO TID PRN vertigo #14 tabs 10/03/22 Rx meclizine 25 mg chewable tablet 25 mg PO TID #20 tabs 10/03/22 Rx (Antivert) ondansetron HCl 4 mg tablet 4 mg PO Q4H 3 doses #10 tabs 10/03/22 Rx Laboratory Tests 07/10/23 07/10/23 07/10/23 09:30 09:39 10:35 WBC 7.7 K/mm3 (4.5-10.0) RBC 4.65 M/mm3 (4.2-5.4) Hgb 11.1 L g/dL (12.0-15.0) Hct 38.3 % (37.0-47.0) MCV 82.4 fl (80-100) MCH 23.9 L pg (26-34) MCHC 29.0 L g/dl (32-36) RDW 17.0 H % (11.5-14.5) Plt Count 347 k/mm3 (150-375) MPV 10.3 fl (7.4-10.4) Immature Gran % (Auto) 0.3 % (0-0.5) Neut % (Auto) 61.2 % (45.5-73.1) Lymph % (Auto) 24.3 % (18.3-44.2) [place] % (Auto) 6.3 % (2.6-8.5) Eos % (Auto) 6.5 H % (0-4.4) Baso % (Auto) 1.4 H % (0.2-1.2) Lymph # (Auto) 1.86 K/mm3 (0.9-3.2) [place] # (Auto) 0.5 K/mm3 (0.1-0.6) Eos # (Auto) 0.5 H K/mm3 (0-0.3) Baso # (Auto) 0.1 K/mm3 (0.0-0.1) Abs Immat Gran (auto) 0.02 K/mm3 (0.00-0.031) Absolute Neuts (auto) 4.7 K/mm3 (1.3-6.7) Absolute Nucleated RBC 0.0 K/mm3 (0.0-0.012) Nucleated RBC % 0.0 % (0.0-0.2) Platelet Estimate Adequate (Adequate) Hypochromasia 1+ (NORMAL) Anisocytosis 1+ (NORMAL) Schistocytes None seen (NORMAL) Sodium 143 mmol/L (137-145) Potassium 3.8 mmol/L (3.4-5.0) Chloride 107 mmol/L (98-107) Carbon Dioxide 25 mmol/L (22-30) Anion Gap 11 mmol/L (8-16) BUN 13 mg/dL (7-17) Creatinine 0.80 mg/dL (0.7-1.0) Estim Creat Clear Calc 77 ml/min Estimated GFR > 60 (59 - ) Glucose 94 mg/dL (65-110) Calcium 9.6 mg/dL (8.4-10.2) Total Bilirubin 1.3 mg/dL (0.2-1.3) AST 33 U/L (14-36) ALT 26 U/L (6-35) Alkaline Phosphatase 96 U/L (38-126) Total Protein 8.0 g/dL (6.3-8.2) Albumin 4.6 g/dL (3.5-5.1) Lipase 73 U/L (23-300) Urine Color Yellow (Yellow) Urine Appearance Cloudy H (Clear) Urine pH 7.5 (5.0-9.0) Ur Specific [place] 1.023 (1.001-1.035) Urine Protein Trace mg/dL (Negative) Urine Glucose (UA) Negative mg/dL (Negative) Urine Ketones Trace H mg/dL (Negative) Ur Blood (Man) Negative (Negative) Urine Nitrate Negative (Negative) Urine Bilirubin Negative (Negative) Urine Urobilinogen 1.0 mg/dL (<2.0) Leukocyte Esterase Rfl 1+ H CHRIS/UL (Negative) Urine RBC 3-5 H /hpf (0-2) Urine WBC 6-10 H /hpf Ur Squamous Epith Cells Moderate /hpf (Few) Urine Bacteria Rar
--- NOTE | 2023-07-10 14:24 | SUR.OPER ---
Oral suction used by DEPARTMENT HELPER during procedure for excess secretions.
--- NOTE | 2023-07-10 15:42 | SUR.PHASEII ---
1520: PT EXPLAINED TO NURSE THAT SHE HAD BEEN ASKED IN THE EMERGENCY ROOM IF SHE FELT SAFE AT HOME AND SHE REPLIED YES. PT STATES THAT SHE WOULD LIKE IT DOCUMENTED THAT SHE LIVES AT HOME WITH A NARCISSISTIC . THEY ARE LIVING ON DIFFERENT FLOORS OF THE HOUSE. SHE HAD ASKED HIM TO BRING HER TO THE E.R. YESTERDAY AND HE REFUSED. SINCE HE FOUND OUT THAT PT CAME TO THE HOSPITAL WITH HER STEP DAD, HE HAS SENT HER NASTY TEXT MESSAGES AND IS CLAIMING HE IS GOING TO SHUT OFF HER PHONE AND TAKE AWAY HER INSURANCE. PT CLAIMS SHE DOES NOT WANT TO GO HOME TO BUT HER QUAKER DOES NOT ALLOW DIVORCE. RN ENCOURAGED PT TO STAY WITH HER MOM THIS EVENING. PT STATES SHE IS STILL GOING TO GO HOME. PT STATES SHE FEELS PHYSICALLY SAFE AT HOME BUT WOULD LIKE SOME HELP IN REGARDS TO HOW TO HANDLE THE SITUATION. THUMB SEWER ABBY AND PERSONAL CARE WORKER ESTELA BOTH NOTIFIED. PHONE NUMBERS FOR THE NATIONAL [place] AND [place] [employer] WERE RECEIVED AND GIVEN TO PT. PT STATES UNDERSTANDING AND STATES SHE WILL CALL THEM.
== END 2023-07-10 15:40 | disposition home or self-care (01) ==
LOC: ANHED 13:44 → ANHSURGERY 13:54 → ANHENDO 14:51
PROVIDERS: Emergency Medicine; Emergency Provider Nurse Practitioner Family; PCP Family Medicine; Visit Provider Internal Medicine Gastroenterology
PROC: 0DJ08ZZ Inspection of Upper Intestinal Tract, Via Natural or Artificial Opening Endoscopic (ICD-10-PCS; CPT 43235; principal; 2023-07-10 14:00)
DX: T18.128A Food in esophagus causing other injury, initial encounter (principal); W44.F3XA Food entering into or through a natural orifice, initial encounter; K20.0 Eosinophilic esophagitis; K29.50 Unspecified chronic gastritis without bleeding; Z79.899 Other long term (current) drug therapy
CPT/HCPCS: 43247; 43239; 36415; 70360; 74220; 80053; 81001; 83690; 85025; 87086; 87636; 88305; 99285; J0330; J2704; J7120

== ENCOUNTER 2023-11-06 08:01 | Outpatient (CLI) | payer OTHER, SELFPAY ==
--- NOTE | ~2023-11-06 | MMUS_ITS ---
EXAMINATION: MM diagnostic alley BI w yunier, US breast RT limited HISTORY: Right breast lump at 12:00 under clavicle for 6 months. According to the patient the physici an felt a lump in the left lower inner quadrant. TECHNIQUE: Bilateral full field and spot left ML, MLO and CC 3-D tomosynthesis images and were perfor med and synthetic 2-D images were generated. Magnification ML view of right breast. CAD analysis was submitted and interpreted. High resolution targeted right breast ultrasound was performed. COMPARISON: 04/04/2017 outside left diagnostic mammogram 07/30/2016 left galactogram 06/27/2016 bilateral screening mammogram FINDINGS: MAMMOGRAPHIC FINDINGS: There is a history of prior bilateral reduction mammoplasty. At the area of clinical complaint of right breast lump beneath the clavicle there is an approximately 4 x 6 mm circumscribed opacity with multiple microcalcifications. The calcifications favor the appea denise of popcorn-like calcifications associated with fibroadenoma, but this lesion wasn't evident on prior mammogram in 2016. No suspicious mass, architectural distortion, malignant calcification, skin thickening or retraction or significant new or developing density of either breast is noted otherwise. ULTRASOUND: Targeted right breast ultrasound at the area of clinical complaint reveals a superficial subdermal ap proximately 2.9 x 7 x 5.7 mm circumscribed hypoechoic lesion with some calcifications. There is some posterior shadowing which may be due to the calcifications. There is minimal internal vascularity on color flow imaging. IMPRESSION: 1. New approximately 4 x 6 mm mass with multiple microcalcifications at the area of clinical complain t of recent breast lump at right upper chest wall 2. Consider ultrasound-guided biopsy BI-RADS category 4, suspicious findings. Reviewed, dictated and finalized at location C. IMPRESSION: 1. New approximately 4 x 6 mm mass with multiple microcalcifications at the are a of clinical complaint of recent breast lump at right upper chest wall 2. Consider ultrasound-guided biopsy BI-RADS category 4, suspicious findings.
== END 2023-11-06 08:02 ==
LOC: MICIMG 08:03
PROVIDERS: PCP Nurse Practitioner Women's Health; Visit Provider Nurse Practitioner Women's Health
DX: N63.24 Unspecified lump in the left breast, lower inner quadrant (principal); N63.10 Unspecified lump in the right breast, unspecified quadrant; R92.8 Other abnormal and inconclusive findings on diagnostic imaging of breast
CPT/HCPCS: 76642; 77062; 77066; G0279

== ENCOUNTER 2023-11-06 09:36 | Outpatient (CLI) | payer OTHER, SELFPAY ==
--- NOTE | ~2023-11-06 | US_ITS ---
EXAMINATION: US pelvic complete w TV DATE: 11/06/2023 10:07 INDICATION: Frequent menstruation. TECHNIQUE: Multiple transabdominal and transvaginal sonographic images of the pelvis were obtained. COMPARISON: CT abdomen pelvis 06/27/2021 FINDINGS: TRANSABDOMINAL ULTRASOUND: The uterus measures 9.7 x 4.9 x 6.6 cm. There is no free fluid in the pelvis. TRANSVAGINAL ULTRASOUND: The endometrial complex measures 6 mm in thickness. There is a 2.7 cm intramural fibroid. There is a 1.8 cm subserosal fibroid. There is a 2.6 cm intramural fibroid. The right ovary measures 1.3 x 1.5 x 2.7 cm. The left ovary 2.2 x 1.0 x 1.7 cm. There is normal vascular flow in the ovaries. IMPRESSION: 1. Uterine fibroids. Reviewed, dictated and finalized at location E. IMPRESSION: 1. Uterine fibroids.
== END 2023-11-06 09:37 ==
LOC: MICIMG 09:37
PROVIDERS: PCP Nurse Practitioner Women's Health; Visit Provider Nurse Practitioner Women's Health
DX: D25.1 Intramural leiomyoma of uterus (principal); D25.2 Subserosal leiomyoma of uterus; N92.0 Excessive and frequent menstruation with regular cycle
CPT/HCPCS: 76830; 76856

== ENCOUNTER 2024-01-02 16:42 | Outpatient (CLI) | payer OTHER, SELFPAY ==
--- NOTE | ~2024-01-02 | MR_ITS ---
EXAMINATION: MR shoulder LT wo con DATE: 01/02/2024 17:52 INDICATION: Left rotator cuff tear. Left shoulder injury. TECHNIQUE: Magnetic resonance imaging (MRI) of the left shoulder shoulder was performed without intra venous contrast. Sequences included axial PD-weighted FS FSE, coronal oblique PD-weighted FS FSE and T2-weighted FS FSE, and sagittal oblique T2-weighted FS FSE and T1-weighted FSE. COMPARISON: None. FINDINGS: Coracoacromial arch: The acromion undersurface is flat in morphology (type I). There is mild acromioclavicular joint osteo arthritis. There is mild subacromial/subdeltoid bursitis. Rotator cuff: There is mild supraspinatus and infraspinatus tendinopathy. Teres minor tendon is normal. There is mi ld subscapularis tendinopathy. No tear. The rotator cuff muscle bellies are normal. Biceps tendon and glenoid labrum: Biceps tendon is in bicipital groove. Intra-articular biceps tendon is normal. The glenoid labrum is normal. Fluid: There is no glenohumeral joint effusion. Bones/cartilage: Glenoid cartilage is normal. Humeral head cartilage is normal. IMPRESSION: 1. Mild rotator cuff tendinopathy. No tear. 2. Mild subacromial/subdeltoid bursitis. 3. Mild acromioclavicular joint osteoarthritis. Reviewed, dictated and finalized at location E.
== END 2024-01-02 16:43 | disposition home or self-care (01) ==
LOC: ANHIMG 17:00
PROVIDERS: PCP Family Medicine; Visit Provider Family Medicine
DX: M75.32 Calcific tendinitis of left shoulder (principal); M75.52 Bursitis of left shoulder; M19.012 Primary osteoarthritis, left shoulder
CPT/HCPCS: 73221

== ENCOUNTER 2024-09-19 06:59 | Emergency (ER) | payer OTHER, SELFPAY ==
--- NOTE | ~2024-09-19 | CT_ITS ---
History: Lower back pain with left-sided paresthesias PROCEDURE: CT lumbar spine without intravenous contrast. COMPARISON: None. Reference is made to CT examination of the abdomen and pelvis dated 06/27/2021 TECHNIQUE: Multiple contiguous axial images of the lumbar spine were performed without the administration of int ravenous contrast. DLP: 641 mGy-cm FINDINGS: Straightening of the normal lordotic curvature of the lumbar spine is identified, possibly muscular i n origin. No acute compression fractures are present. No soft tissue abnormality is noted. Impression: Straightening of the normal lordotic curvature of the lumbar spine, likely muscular in origin. No acute compression fracture. Reviewed, dictated and finalized at location A. Impression: Straightening of the normal lordotic curvature of the lumbar spine, likely musc ular in origin. No acute compression fracture.
[2024-09-19 07:01] VITALS: BP 136/58; PULSE 63; RESP 18; TEMP 36.2; O2SAT 100
--- OUTSIDE RECORDS SUMMARY | 2024-09-19 07:02 | XMS_ITS | Clinical Summary ---
Author Organization [facility] Address [address] [place] [address] Phone Care Team Providers Care Design Draftsman Name Role Phone Provider, None Primary Care Provider Unavailabl e Allergies No known active allergies Medications No known medications Immunizations Immunization Administration Dates Next Due Covid-19, Mrna, Lnp-s, Pf, 30 Mcg/0.3 Ml Dose (P fizer) 11/24/2020,11/03/2020 Social History Tobacco Use Types Packs/Day Years Used Date Smoking Tobacco: Never Smokeless Tobacco: Never Alcohol Use Standard Drinks/Week Comments Yes 0 (1 standard drink = 0.6 oz pur e alcohol) occassion Comments No Sex and Gender Information Value Date Recorded Sex Assigned at Not on file Legal Sex Female 8:31 PM CDT Gender Identity Not on file Sexual Orientation Not on file Last Filed Vital Signs Vital Sign Reading Time Taken Comments Blood Pressure 110/44 04/06/2020 1:45 AM CDT Pulse 70 04/06/2020 1:45 AM CDT Temperature 35.9 C (96.6 F) 04/05/2020 11:01 PM CDT Respiratory Rate - - Oxygen Saturation 99% 04/06/2020 1:45 AM CDT Inhaled Oxygen Concentration - - Weight 84.4 kg (186 lb) 04/05/2020 11:01 PM CDT Height 175.3 cm (5' 9 ) 04/05/2020 11:01 PM CDT Body Mass Index 27.47 04/05/2020 11:01 PM CDT Plan of Treatment Health Maintenance Due Date Last Done Comments Hepatitis C Virus (HCV) Screening 1973 TdaP Immunization 1973 Hepatitis B Immunization (1 of 3 - 19+ 3-dose series) 1992 Colonoscopy 2018 Colorectal Cancer Screening 2018 Cologuard 2023 Immunochemical Fecal Occult Blood 2023 Pneumococcal Immunization (5 0+ years) (1 of 1 - PCV) 2023 Zoster Immunization (1 of 2) 2023 Influenza Immunization (#1) 2024 SARS-COV-2 Immunization (3 - season) 2024 11/24/2020, 11/03/2020 Respiratory Syncytial Virus (RSV) Immunization (Adult) (1 - 1-dose 75+ series) 2048 Meningococcal Immunization (ACWY) Aged Out No longer eligible b ased on patient's age to complete this topic Rotavirus Immunization Aged Out No lo nger eligible based on patient's age to complete this topic Insurance MEDICAID [place] Care Teams Design Draftsman Relationship Specialty Start Date End Date Provider, None [place] PCP - General 04/05/20
--- OUTSIDE RECORDS SUMMARY | 2024-09-19 07:02 | XMS_ITS | Clinical Summary ---
Author Organization [facility] Address [facility] [place] [address] Care Team Providers Care Patient Educator Name Role Phone Arnol Cintron MD Primary Care Provider [phone] Dale Wallace MD,PHD Unavailable Unavail able Allergies Active Allergy Reactions Criticality Noted Date Comments Bacid Anaphylaxis High 12/06/2021 Medications CALCIUM OR Take 1 tablet by mouth as needed. Active VITAMIN D OR Take by mouth as needed. Active Magnesium 200 MG Chew Tab Chew 1 tablet by mouth daily. Active B Complex Cap capsule Take 1 capsule by mouth daily. Active Iron Carbonyl-Vitami n C-FOS (CHEWABLE IRON) 30-10-25 MG Chew Tab Chew 1 tablet by mouth daily. Active Active Problems Problem Noted Date Diagnosed Date Chest pain 07/06/2019 GERD (gastroesophageal reflux disease) 0 Migraines 07/06/2019 SOB (shortness of breath) 07/06/2019 Palpitations 07/06/2019 Family History * Patient is adopted Medical History Relation Comments No Known Problems Father Diabetes Maternal Grandmother No Known Problems Mother No Known Problems Sister 1 No Known Problems Sister 2 Relation Status Comments Father Alive Maternal Grandmother Mother Alive Sister 1 Alive Sister 2 Alive Social History Tobacco Use Types Packs/Day Years Used Date Smoking Tobacco: Never Smokeless Tobacco: Never Alcohol Use Standard Drinks/Week Comments Yes 1.7 (1 standard drink = 0.6 oz p ure alcohol) rarely Comments No Sex and Gender Information Value Date Recorded Sex Assigned at Not on file Legal Sex Female 11:22 PM CDT Gender Identity Not on file Sexual Orientation Not on file 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 Not on file Not on file Last Filed Vital Signs Vital Sign Reading Time Taken Comments Blood Pressure 110/72 10/28/2022 9:19 AM CDT Pulse 63 10/28/2022 9:19 AM CDT Temperature 36.7 C (98.1 F) 12/06/2021 11:41 AM CDT Respiratory Rate 20 12/06/2021 3:30 PM CDT Oxygen Saturation 94% 12/06/2021 3:30 PM CDT Inhaled Oxygen Concentration - - Weight 88.5 kg (195 lb) 10/28/2022 9:19 AM CDT Height 175.3 cm (5' 9 ) 10/28/2022 9:19 AM CDT Body Mass Index 28.8 10/28/2022 9:19 AM CDT Plan of Treatment Health Maintenance Due Date Last Done Comments Cervical Cancer Screening Pa p Smear (Age 30 to 64) Every 3 Years 1973 Colorectal Cancer Screening Colonoscopy (10 Years) 1973 Annual Physical 1976 Hepatitis C 1991 DTaP, Tdap and Td Vaccines ( 1 - Tdap) 1992 Hepatitis B Vaccines (1 of 3 - 19+ 3-dose series) 1992 Cervical Cancer Screening Pa p with HPV Testing (Age 30 to 64) Every 5 Years [address] [facility] HPV 2003 Mammogram Screening 2013 Zoster Vaccines (1 of 2) 2023 COVID-19 Vaccine (2023-2 5 season) 2024 11/24/2020, 11/03/2020 Influenza Adult (#1) 2024 Meningococcal B Vaccine Aged Out No l onger eligible based on patient's age to complete this topic Meningococcal Vaccine Aged Out No charley jamal eligible based on patient's age to complete this topic Pneumococcal Vaccine: Pediatrics (0 to 5 Years) and At-Risk Patients (6 to 64 Years) Aged Out No longer eligible b ased on patient's age to complete this topic RSV Immunizations Under 20 Months Aged Out No longer eligible b ased on patient's age to complete this topic Insurance [facility] [employer] Advance Directives Documents on File Type Date Recorded 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 FOR HB BILLS FOR [place] FOR [employer] Advance Directives and Living Will 07/06/2019 10:48 AM Care Teams Patient Educator Relationship Specialty Start Date End Date Arnol Cintron MD [address] [place] [address] PCP - General FAMILY PRACTICE 06/30/19 Dale Wallace MD,PHD [address] [place] [address] Physician CARDIOVASCULAR DISEASE 10/28/22
--- OUTSIDE RECORDS SUMMARY | 2024-09-19 07:02 | XMS_ITS | Data Portability ---
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 She has had pain and weakness in the shoulder since. She denies any previous injuries or other issues with the shoulder. She initially rested it for about a week with some improvement, but then tried to move some furniture again and the shoulder got much worse. Since injury, she has been wearing a sling, taking Tylenol, using ice and heat. She currently rates her pain as 7/10. She is right-hand dominant. She is unable to take oral anti-inflammator ies because of esophagitis. Review of systems per patient questionnaire Physical exam: She has diffuse soreness around the shoulder. Tenderness over the anterior shoulder and biceps groove. She has active elevation to 90, passive to 120, twenty external rotation, internal rotation to back pocket. She is guarded with exam, has discomfort and 5- out of 5 strength with elevation and external rotation. Positive Live Oak's. Positive Neer and Jackson. X-rays were reviewed, demonstrating no acute bony abnormality, preserved joint space. Previous MRI was reviewed, demonstrating intact rotator cuff with tendinitis. She does have a SLAP tear. We will begin her on a course of conservative management with physical therapy and topical Voltaren. We will keep her restricted with no lifting pushing or pulling of the left arm. We will see her back in 6 weeks after the course of treatment. At that time, we will discuss a cortisone injection if no improvement. She is in agreement with the plan. Not available 01/07/2024 13:40:59 02/18/2024 02/18/2024 48-year-old female presents for re-evaluation of her left shoulder. 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 She has had pain and weakness in the shoulder since. She has been attending PT. She feels that the shoulder is getting better, especially range of motion. but is still sore with certain movements and lifting. She is up to lifting 10lbs in therapy. She feels that she would benefit from more therapy sessions. Physical exam: Tenderness over the anterior shoulder and biceps groove. ROM 130/30/back pocket. 5/5 rotator cuff strength. + jobes. sensation intact. We will renew her physical therapy. We will keep her restricted with no lifting pushing or pulling of the left arm. We will see her back in 4-6 weeks after the course of treatment. At that time we anticipate she will be able to return to work full duty. Not available 02/18/2024 11:13:17 03/24/2024 03/24/2024 48-year-old female presents for re-evaluation of her left shoulder. 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 She had pain and weakness in the shoulder afterwards. She has been attending PT. She feels that the shoulder is continuing to get better. She is still sore with lifting and feels tightness reaching across her chest. She is up to lifting 25lbs in therapy. She feels that she would benefit from more therapy sessions. Physical exam: Tenderness over the anterior shoulder and biceps groove. ROM 140/40/lower lumbar. 5/5 rotator cuff strength. Sensation intact. She would like to continue with therapy. She is no longer working at her place of injury. We will see her back in 4-6 weeks after more therapy to check her progress. She is in agreement with this plan. Not available 03/24/2024 13:38:10 04/28/2024 04/28/2024 48-year-old female presents for follow-up of her left shoulder. She has been doing better, finished her PT, having no pain good motion. Her only complaint is when she reaches across her body she feels a little bit of stiffness. She has some soreness over the AC joint. No tenderness elsewhere around the shoulder. Range of motion 150/30/lower lumbar. 5/5 rotator cuff strength. Negative Live Oak's. She reproduces the pain when she is reaching across her opposite shoulder. At this point she has minimal pain and full range of motion. She has no restrictions and may return to work full duty without limitations. She is at [employer]. Follow up as needed. Not available 04/28/2024 09:28:19 Plan of Treatment Reminders Order Date Submit Date Provider Last Modified By Organization Details Last Modified Time Details Appointments None recorded. Lab None recorded. Referral physical therapist referral - [facility] 2023 024 [facility] - [address], [address], 14:59:15 physical therapist referral - EVAL AND TREATInjury Date 10/13/2023I njured Body Part L SHOULDERWor ker's Comp Bacteriology Research Assistant JUDITH Willson 2023 024 [facility] - [address], [address], 17:29:49 Procedures None recorded. Surgeries None recorded. Imaging None recorded. Medication Orders None recorded. Patient TargetsNo targets recorded. Patient InstructionsNo instructions recorded. Reason for Referral Physical Therapist Referral for Pain of left shoulder joint EVAL AND TREATInjury Date 10/13/2023Injured Body Part L SHOULDERWorker's Comp JUDITH Roca Referring Physician: Jabari Powell, Orthopedic Surgery, Encounter Date: 01/07/2024 Physical Therapist Referral for Anterior to posterior tear of superior glenoid labrum of left shoulder [facility] Referring Physician: Zhanna Kaur, Orthopedic Surgery, Encounter Date: 02/18/2024 Results Created Date Observation Date Name Description Value Unit Range Abnormal Flag Note LastModifiedBy Organization Detail LastModifiedTime 12/17/19 24 11/05/2023 XR, shoul desiree No observ ation record ed. [email or web address] Not Available 2023 13:51:55 01/05/20 24 01/02/2024 MRI, shoul desiree, w/o contr ast No observ ation record ed. [email or web address] Not Available 12/21 13:57:59 01/07/20 24 11/05/2023 XR, shoul desiree No observ ation record ed. Not Available 2023 09:42:23 Result Notes None recorded. Problems Name Problem SNOMED Code Status Onset Date Resolution Date Notes Provider Name and Address Organization Details Recorded Time Pain of left shoulder joint 07662243237136 109 Active 2023 ZOHAIB Heck [facility] 10:01:34 Anterior to posterior tear of superior glenoid labrum of left shoulder 92517498446752 108 Active 2023 Jabari Powell MD [address] [place] [address], [phone] [facility] 13:41:40 Problem Notes None recorded. Procedures Surgical History Date Name Laterality Status Provider Name and Address Organization Details Recorded Time Tubal Ligation completed Jadyn suárez [facility]NA [facility] 01/07/2024 10:00:23 Breast reduction completed Jadyn Stevens [facility]NA [facility] 01/07/2024 10:00:38 Knee arthroscopy/devin nohemy completed Jadyn Stevens [facility]NA [facility] 01/07/2024 10:00:54 Imaging Results Imaging Date Name Status LastModified by Organiz ation Details LastModified Time 11/05/2023 XR, shoulder completed [email or web address] Information not available 12/17/2023 13:51:55 01/02/2024 MRI, shoulder, w/o contrast completed [email or web address] Information not available 01/05/2024 13:57:59 11/05/2023 XR, shoulder completed [email or web address] Information not available 01/07/2024 09:42:23 Procedure Notes None recorded. Medical Equipment None Reported. Allergies No known drug allergies Medications Name Sig Start Date Stop Date Status Note LastModified by Organization Details LastModified Time omeprazole 40 mg capsule,del ayed release TAKE 1 CAPSULE BY MOUTH EVERY DAY 01/06 completed Not Available Not Available Not Available triamcinolo ne acetonide 0.1 % topical ointment APPLY OINTMENT TOPICALLY TO AFFECTED AREA TWICE DAILY FOR 10 DAYS 01/06 completed Not Available Not Available Not Available amoxicillin 400 mg/5 mL oral suspension TAKE 10.9 ML BY MOUTH TWICE DAILY FOR 10 DAYS , DISCARD THE REMAINING AMOUNT 01/06 completed Not Available Not Available Not Available methylpredn isolone 4 mg tablets in a dose pack TAKE BY MOUTH DIRECTED ON INSIDE OF PACKAGE 01/06 completed Not Available Not Available Not Available Vitals Date Recorded Body height Body mass index (BMI) Body weight Provider Name and Address Organization Details Last Updated DateTime 01/07/2024 175.26 cm 26.6 kg/m2 04337.63 g Jadyn Stevens [facility]NA [facility] 01/07/2024 09:58:43 Date Recorded Body height Body mass index (BMI) Body weight Pain severity - 0-10 verbal numeric rating [Score] - Reported Provider Name and Address Organization Details Last Updated DateTime 02/18/2024 175.26 cm 26.6 kg/m2 22949.63 g STEVEN Caro [facility] 02/18/2024 10:18:27 Date Recorded Body height Provider Name an d Address Organization Details Last Updated DateTime 03/24/2024 175.26 cm Elianemaegan Dietrich [facility] 03/24/2024 09:33:23 Date Recorded Body height Body mass index (BMI) Body weight Provider Name and Address Organization Details Last Updated DateTime 04/28/2024 175.26 cm 26.6 kg/m2 76439.63 g Jadyn Stevens [facility]NA [facility] 04/28/2024 09:15:36 Social History Question Answer Notes LastModified by Organizat ion Details LastModified Time Tobacco Smoking Status Never Smoker Jadyn StevensZOHAIB null, [place] [facility] 01/07/2024 10:00:08 What Is Your Level Of Alcohol Consumption? None [email or web address] Information not available 01/07/2024 Sex: Unknown Functional Status None recorded. Mental Status None recorded. Family History Nothing Reported. Medical History No medical history recorded. Gynecological HistoryNo gynecological history recorded. Obstetrics History GPAL:G 0 P 0 0 0 0 Past Encounters Encounter ID Performer Location Encounter Start Date Encounter Closed Date Diagnosis/Indication Diagnosis SNOMED-CT Code Diagnosis ICD10 Code Diagnosis Note [id number] Jabari Powell MD [facility] [address] [place] [address] 01/07/2024 09:38:50 01/07/2024 10:30:40 Pain of left shoulder joint 3512917144 6048588 M25.512 Anterior t o posterior tear of superior glenoid labrum of left shoulder 0802390440 8766687 S43.432A [id number] Zhanna Kaur NP [facility] [place] [address] [place] [address] 02/18/2024 10:16:56 02/18/2024 10:32:46 Anterior to posterior tear of superior glenoid labrum of left shoulder 8885787587 7799039 S43.432A Pain of le ft shoulder joint 0092442406 1571005 M25.682 [id number] Zhanna Kaur NP [facility] [place] [address] [place] [address] 03/24/2024 09:32:17 03/24/2024 09:49:00 Anterior to posterior tear of superior glenoid labrum of left shoulder 2898457032 2902272 S43.432A Pain of le ft shoulder joint 2001992431 0932675 M25.229 [id number] Jabari Powell MD [facility] [place] [address] [place] [address] 04/28/2024 09:12:17 04/28/2024 09:56:04 Anterior to posterior tear of superior glenoid labrum of left shoulder 8389668043 8546215 S43.432D Pain of le ft shoulder joint 7251775767 3475213 M25.512 Health Concerns Section Related Observation LastModified by Organization Detai ls LastModified Time None Recorded Concern Status LastModified by Organization Details LastModified Time None Recorded Advance Directives Directive None Recorded Payers Encounter Date Sequence Insurance Name Policy Number Policy Gamez Covered Member ID Gamez Member ID Guarantor Name 01/07/2024 [employer] Elizabeth Rayo Elizabeth Rayo 02/18/2024 [employer] Elizabeth Rayo Elizabeth Rayo 03/24/2024 [employer] Elizabeth Rayo Elizabeth Rayo 04/28/2024 [employer] Elizabeth Rayo Elizabeth Rayo OBGyn Episode No OBEpisode recorded.
--- OUTSIDE RECORDS SUMMARY | 2024-09-19 07:02 | XMS_ITS | Continuity of Care Document ---
Author Organization [employer] [place] Address [address] [place] [address] [address] [place] [address] Phone Care Team Providers Care It Applications Manager Name Role Phone Pedro Pablo Panda PT Unavailable Unavailable Procedures Procedure Date Progress Note Therapeutic Activities Neuromuscular Re-Ed Therapeutic Exercise Manual Therapy Hot or Cold Pack Progress Note Therapeutic Activities Neuromuscular Re-Ed Therapeutic Exercise Manual Therapy Hot or Cold Pack Therapeutic Activities Neuromuscular Re-Ed Therapeutic Exercise Hot or Cold Pack Progress Note Therapeutic Activities Neuromuscular Re-Ed Therapeutic Exercise Manual Therapy Therapeutic Activities Therapeutic Exercise Neuromuscular Re-Ed Hot or Cold Pack Manual Therapy Therapeutic Activities Therapeutic Exercise Neuromuscular Re-Ed Manual Therapy Hot or Cold Pack MANAGER CARDIOVASCULAR Acute Therapeutic Activities Neuromuscular Re-Ed Therapeutic Exercise Manual Therapy Therapeutic Activities Neuromuscular Re-Ed Therapeutic Exercise Manual Therapy Hot or Cold Pack Therapeutic Activities Neuromuscular Re-Ed Therapeutic Exercise Manual Therapy Therapeutic Activities Neuromuscular Re-Ed Therapeutic Exercise Manual Therapy Hot or Cold Pack Therapeutic Activities Neuromuscular Re-Ed Therapeutic Exercise Manual Therapy Progress Note Therapeutic Activities Neuromuscular Re-Ed Therapeutic Exercise Neuromuscular Re-Ed Therapeutic Exercise Manual Therapy Hot or Cold Pack Progress Note Therapeutic Activities Neuromuscular Re-Ed Therapeutic Exercise Manual Therapy Hot or Cold Pack Neuromuscular Re-Ed Therapeutic Exercise Manual Therapy Hot or Cold Pack Neuromuscular Re-Ed Therapeutic Exercise Manual Therapy Hot or Cold Pack Neuromuscular Re-Ed Therapeutic Exercise Manual Therapy Neuromuscular Re-Ed Therapeutic Exercise Manual Therapy Hot or Cold Pack Neuromuscular Re-Ed Therapeutic Exercise Manual Therapy PT Evaluation Moderate Complexity Therapeutic Exercise Progress Note Manual Therapy Therapeutic Activities Neuromuscular Re-Ed Hot or Cold Pack Therapeutic Exercise Neuromuscular Re-Ed Therapeutic Activities Therapeutic Exercise Hot or Cold Pack Therapeutic Activities Neuromuscular Re-Ed Hot or Cold Pack Therapeutic Exercise Therapeutic Activities Neuromuscular Re-Ed Therapeutic Exercise Hot or Cold Pack Therapeutic Activities Hot or Cold Pack Therapeutic Exercise Manual Therapy Neuromuscular Re-Ed Progress Note Therapeutic Activities Manual Therapy Therapeutic Exercise Neuromuscular Re-Ed Hot or Cold Pack Therapeutic Activities Neuromuscular Re-Ed Therapeutic Exercise Manual Therapy Hot or Cold Pack Therapeutic Activities Neuromuscular Re-Ed Therapeutic Exercise Manual Therapy Hot or Cold Pack Therapeutic Exercise Neuromuscular Re-Ed Therapeutic Activities Hot or Cold Pack Manual Therapy Therapeutic Activities Therapeutic Exercise Hot or Cold Pack Manual Therapy Neuromuscular Re-Ed Therapeutic Activities Neuromuscular Re-Ed Therapeutic Exercise Manual Therapy Hot or Cold Pack Progress Note Therapeutic Activities Neuromuscular Re-Ed Therapeutic Exercise Manual Therapy Therapeutic Activities Neuromuscular Re-Ed Therapeutic Exercise Manual Therapy Therapeutic Activities Hot or Cold Pack Neuromuscular Re-Ed Therapeutic Exercise Manual Therapy Therapeutic Activities Therapeutic Exercise Manual Therapy Neuromuscular Re-Ed Therapeutic Exercise Neuromuscular Re-Ed Therapeutic Activities Electrical Stimulation Hot or Cold Pack Manual Therapy Therapeutic Activities Therapeutic Exercise Neuromuscular Re-Ed Manual Therapy Hot or Cold Pack PT Evaluation Low Complexity Manual Therapy Neuromuscular Re-Ed Therapeutic Exercise Advance Directives Directive Yes / No Effective Date File Name No Information Encounters Encounter Description Practice Location Reason(s) For Visit Diagnoses Date Provider Providers Copied on Encounter [facility] [address], [id number], tel:[phone] [place] No Information 4 Amarilys Chamorro. . [facility], [id number], tel:[phone] [place] No Information 4 Amarilys Chamorro. . Referring Provider: Nael Ashby , [place], [address]. tel:[phone] [facility] [address], [id number], [place] tel:[phone] [place] No Information 4 Cayden Baires [address] [place] [address], [address], [place], [address], . tel:[phone] Referring Provider: [address], [place], [address]. tel:[phone] [facility] [address], [id number], [place] tel:[phone] [place] No Information 4 Rebecca Hester. . Referring Provider: [address], [place], [address]. tel:[phone] [facility] [address] [place] [address], [id number], [place] tel:[phone] [place] No Information Oct-0 8 4 Cayden Rajesh. [address] [facility], [address], [place], [place], [facility], [place]. tel:[phone] Referring Provider: Nael Ashby , [place], [address]. tel:[phone] [place] [address] [address], [place], [place], [id number], [place] tel:[phone] [place] No Information Sep-2 4 Fernandez Kacie. . Referring Provider: Jabari Powell, Nael [facility], [place], [address]. tel:[phone] [place], [place] [address], [place], [place], [id number], [place] tel:[phone] [place] No Information Sep-2 4 Fernandez Kacie. . Referring Provider: Jabari Powell, Nael [facility], [place], [address]. tel:[phone] [place] [address], [id number], [place] tel:[phone] [place] No Information Sep-1 4 America James. . Referring Provider: Jabari Powell, Nael [facility], [place], [address]. tel:[phone] [address], [place], [place], [id number], [place] tel:[phone] [place] No Information Sep-0 6-202 4 America James. . Referring Provider: Jabari Powell, Nael [facility], [place], [address]. tel:[phone] [place], [place] [address] [address], [place], [place], [id number], [place] tel:[phone] [place] No Information Sep-0 4-202 4 America James. . Referring Provider: Nael Ashby [facility], [place], [address]. tel:[phone] [place] [address] [address] [facility], [place], [place], [id number], [place] tel:[phone] [place] No Information Jan-3 4 Fernandez Kacie. . Referring Provider: Jabari Powell, [address] [facility], [place], [address]. tel:[phone] [place] [address] [address] [address], [place], [place], [id number], [place] tel:[phone] [place] No Information Jan- 4 America James. . Referring Provider: Jabari Powell, [facility] [facility], [place], [address]. tel:[phone] [place] [address], [place], [id number], [place] tel:[phone] [place] No Information Jan- 4 America James. . Referring Provider: Jabari Powell, [address] [facility], [place], [address]. tel:[phone] [place] [address], [place], [id number], [place] tel:[phone] [place] No Information Jan- 4 America James. . Referring Provider: Jabari Powell, [facility] [facility], [place], [address]. tel:[phone] [facility] [address] [address], [place], [id number], [place] tel:[phone] [place] No Information Jan-0 4 Cayden Mena. [address] [facility], [address], [place], [address], [place]. tel:[phone] Referring Provider: Jabari Powell, [address] [facility], [place], [address]. tel:[phone] [facility] [address] [address], [place], [place], [id number], [place] tel:[phone] [place] No Information 4 America James. . Referring Provider: Jabari Powell, [address] [facility], [place], [address]. tel:[phone] [place] [address] [address], [place], [place], [id number], [place] tel:[phone] [place] No Information 4 America James. . Referring Provider: Jabari Powell, [address] [facility], [place], [address]. tel:[phone] [place] [address] [address], [place], [place], [id number], [place] tel:[phone] [place] No Information 4 America James. . Referring Provider: Jabari Powell, [address] [facility], [place], [address]. tel:[phone] [place] [address] [address], [place], [place], [id number], [place] tel:[phone] [place] No Information 4 America James. . Referring Provider: Jabari Powell, [address] [facility], [place], [address]. tel:[phone] [place] [address] [address], [place], [place], [id number], [place] tel:[phone] [place] No Information 4 America James. . Referring Provider: Jabari Powell, [address] [facility], [place], [address]. tel:[phone] [place] [address] [address], [place], [place], [id number], [place] tel:[phone] [place] No Information 4 America James. . Referring Provider: Jabari Powell, [address] [facility], [place], [address]. tel:[phone] [place] [address] [address], [place], [place], [id number], [place] tel:[phone] [place] No Information Sep-2 3-202 0 Dellamano Christiano. . Referring Provider: Diallo Henderson, [address], [place], [address]. tel:[phone] [facility], [address], [place], [place], [id number], [place] tel:[phone] [place] No Information Sep-2 1-202 0 Dellamano Christiano. . Referring Provider: Diallo Henderson, [address], [place], [address]. tel:[phone] [facility] [address], [place], [place], [id number], [place] tel:[phone] [place] No Information Sep-1 8 0 Anum Poole. . Referring Provider: Suzette V[address], [place], [address]. tel:[phone] [facility] [address], [place], [place], [address], [place] tel:[phone] [place] No Information Sep-1 6- 0 Dellamano Christiano. . Referring Provider: Suzette V[address], [place], [address]. tel:[phone] [facility] [address], [place], [place], [address], [place] tel:[phone] [place] No Information Sep-1 -202 0 Dellamano Christiano. . Referring Provider: Suzette V[address], [place], [address]. tel:[phone] [facility], [place], [place], [id number], [place] tel:[phone] [place] No Information Sep-1 1-202 0 Dellamano Christiano. . Referring Provider: Suzette V[address], [place], [address]. tel:[phone], [place], [place], [address], [place] tel:[phone] [place] No Information Sep-1 0-202 0 Dellamano Christiano. . Referring Provider: Suzette V[address], [place], [address]. tel:[phone] [facility] [address], [place], [place], [id number], [place] tel:[phone] [place] No Information Sep-0 9-202 0 Dellamano Christiano. . Referring Provider: Suzette V[address], [place], [address]. tel:[phone] [facility] [address], [place], [place], [address], [place] tel:[phone] [place] No Information Sep-0 3-202 0 Dellamano Christiano. . Referring Provider: Suzette V[address], [place], [address]. tel:[phone] [facility] [address], [place], [place], [address], [place] tel:[phone] [place] No Information Sep-0 2-202 0 Dellamano Christiano. . Referring Provider: Suzette V[address], [place], [address]. tel:[phone] [facility] [address], [place], [place], [id number], [place] tel:[phone] [place] No Information Aug-3 1-202 0 Dellamano Christiano. . Referring Provider: Suzette [address], [place], [address]. tel:[phone] [facility] [address], [place], [place], [address], [place] tel:[phone] [place] No Information 0 Threlkeld Bree. . Referring Provider: Suzette [address], [place], [address]. tel:[phone] [facility] [address], [place], [place], [id number], [place] tel:[phone] [place] No Information 0 Dellamano Christiano. . Referring Provider: Suzette [address], [place], [address]. tel:[phone] [facility] [address], [place], [place], [id number], [place] tel:[phone] [place] No Information 0 Dellamano Christiano. . Referring Provider: Suzette V[address], [place], [address]. tel:[phone] [facility] [address], [place], [place], [address], [place] tel:[phone] [place] No Information 0 Dellamano Christiano. . Referring Provider: Suzette V[address], [place], [address]. tel:[phone] [facility] [address], [place], [place], [address], [place] tel:[phone] [place] No Information 0 Dellamano Christiano. . Referring Provider: Suzette V[address], [place], [address]. tel:[phone] [facility] [address], [place], [place], [address], [place] tel:[phone] [place] No Information 0 Delmargarita Alvarado. . Referring Provider: Diallo Henderson, [address], [place], [address]. tel:[phone] [facility] [place], [address], [place], [place], [address], [place] tel:[phone] [place] No Information 0 Delmargarita Alvarado. . Referring Provider: Diallo Henderson, [address], [place], [address]. tel:[phone] Family History Family Member Type Diagnosis Age At Onset No Information Payers Payer name Insurance type Covered libertarian ID Authoralanariel tobylaurie(s) [employer] SP [id number] Social History Type Description Quantity Date Captured Comments Sex Female Smoking Status No Information Chief Complaint And Reason For Visit No Information Reason For Referral Reason For Referral No Information Plan Of Treatment Date Type Action Status Referral Ordered: PCP timeframe: 1 week. (related to Overweight) ordered Referral Ordered: Weight management: Referral to physician timeframe: 1 Month (related to Overweight) ordered History Of Present Illness Encounter Date Complaint History Of Prese nt Illness No Information Functional Status Date Functional Assessmen t No Information Instructions Date Instruction Additional Infor mation No Information Assessments Type Assessment Date No Information Patient Care Teams Name Effective Dates (start - stop) Status Members No Information
--- OUTSIDE RECORDS SUMMARY | 2024-09-19 07:02 | XMS_ITS | Clinical Summary ---
Author Organization [facility] Address [address] [place] [address] Care Team Providers Care Civil Cadd Technician Name Role Phone Unavailable Primary Care Provider Unavailabl e Source Comments [facility],non-owned Affiliates and Associated Physician Practices is amultiple site organization consisting of ambulatory clinics and hospital sitesin [place], [place], [place] and [place]. This disclosure is being madepursuant to the Care Everywhere program and may not contain all information available regarding this patient. Last updated 18.[facility] Allergies No known active allergies Medications * Be aware that medications may not be up to date on this document. Alwaysverify current medications with the patient. Medication Sig Dispensed Refills Start Date End Date Status triamcinolone acetonide (KENALOG) 0.1 % creamIndications:José pic Dermatitis Apply to affected area 2 times daily Reasons: Atopic Dermatitis 80 g 11/22/2016 Active predniSONE (DELTASONE) 20 MG tabletIndications:co ntact dermatitis Take three tablets PO once daily x 3 days, 2 tablets daily x 3 days, one tablet daily x 2 days Reasons: contact dermatitis 17 Tab 11/22/2016 Active Social History Tobacco Use Types Packs/Day Years Used Date Smoking Tobacco: Never Tobacco Cessation:Counseling Given: No Alcohol Use Standard Drinks/Week Comments No 0 (1 standard drink = 0.6 oz pur e alcohol) Sex and Gender Information Value Date Recorded Sex Assigned at Not on file Gender Identity Not on file Sexual Orientation Not on file Last Filed Vital Signs Vital Sign Reading Time Taken Comments Blood Pressure 114/74 11/22/2016 5:27 PM CDT Pulse 64 11/22/2016 5:27 PM CDT Temperature 36.8 C (98.2 F) 11/22/2016 5:27 PM CDT Respiratory Rate 16 11/22/2016 5:27 PM CDT Oxygen Saturation 98% 10/29/2016 9:42 AM CDT Inhaled Oxygen Concentration - - Weight 74.8 kg (165 lb) 10/29/2016 9:42 AM CDT Height 175.3 cm (5' 9 ) 10/29/2016 9:42 AM CDT Body Mass Index 24.37 10/29/2016 9:42 AM CDT Plan of Treatment Health Maintenance Due Date Last Done Comments COLOGUARD (AGES 45-75) - COL ON CA SCREENING 1973 COLON MONITORING 1973 COLONOSCOPY - COLON CA SCREENING 1973 CT COLONOGRAPHY - COLON CA SCREENING 1973 Colorectal Cancer Screening 1973 FIT - COLON CA SCREENING 1973 FLEX SIG - COLON CA SCREENING 1973 LIPID TESTING 1973 MAMMOGRAM 1973 PAP SMEAR 1973 HIV SCREENING 1988 HEPATITIS C SCREENING 08/13/1991 DTAP/TDAP/TD VACCINES (1 - Tdap) 1992 HEPATITIS B VACCINE (1 of 3 - 19+ 3-dose series) 1992 PNEUMOCOCCAL VACCINE 50+ (1 of 1 - PCV) 2023 ZOSTER VACCINE (1 of 2) 2023 COVID-19 VACCINE (1 - 2023-2 5 season) 2024 INFLUENZA VACCINE (#1) 2024 DEPRESSION SCREENING 06/23/2024 HIB VACCINE Aged Out No longer eligi ble based on patient's age to complete this topic HPV VACCINE Aged Out No longer eligi ble based on patient's age to complete this topic MENINGOCOCCAL (Group B) VACC INE SHARED DECISION-MAKING Aged Out No longer eligibl e based on patient's age to complete this topic MENINGOCOCCAL GROUPS A/C/Y/W VACCINE Aged Out No longer eligible b ased on patient's age to complete this topic Guarantor Name Account Type Relation to Patient Date of Phone Billing Address KATHLEEN AZAR Personal/Famil y [address] [place] [address] Kathleen Azar Personal/Famil y Self 1975 [address] [place] [address] Kathleen Azar Personal/Famil y Self 1975 [address] [place] [address]
--- OUTSIDE RECORDS SUMMARY | 2024-09-19 08:23 | XMS_ITS | Clinical Summary ---
Author Organization [facility] Address [facility] [place] [address] Care Team Providers Care Credentialing Analyst Name Role Phone Arnol Cintron MD Primary Care Provider [phone] Dale Wallace MD,PHD Unavailable Unavail able Allergies [...] Industry Job Start Date Job End Date [employer] Not on file Not on file Not [...] Every 5 Years 2003 Cervical Cancer Screening [facility] HPV 2003 Mammogram Screening 2013 Zoster Vaccines [...] patient's age to complete this topic [facility] [employer] Advance Directives Documents on File Type Date Recorded 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 FOR HB BILLS FOR [employer] FOR [employer] Advance Directives and Living Will 07/06/2019 10:48 AM Care Teams Credentialing Analyst Relationship Specialty Start Date End Date Arnol Cintron MD [address] [place] [address] PCP - General FAMILY PRACTICE 06/30/19 Dale Wallace MD,PHD [address] [place] [address] Physician CARDIOVASCULAR DISEASE 10/28/22
--- OUTSIDE RECORDS SUMMARY | 2024-09-19 08:23 | XMS_ITS | Clinical Summary ---
Author Organization [facility] Address [address] [place] [address] Phone Care Team Providers Care Ap Operator Name Role Phone Provider, None Primary Care [...] this topic Insurance MEDICAID [place] Care Teams Ap Operator Relationship Specialty Start Date End Date Provider, None [place] PCP - General 04/05/20
--- OUTSIDE RECORDS SUMMARY | 2024-09-19 08:23 | XMS_ITS | Continuity of Care Document ---
Author Organization [facility] Address [address] [place] [address] [address] [place] [address] Phone Care Team Providers Care Oil Lease Buyer Name Role Phone Pedro Pablo Panda PT [...] Therapy Therapeutic Activities Neuromuscular Re-Ed Therapeutic Exercise Hot or Cold Pack Manual Therapy Therapeutic Activities Therapeutic Exercise Neuromuscular Re-Ed Manual Therapy Hot or Cold Pack HEAD OF ART Acute Therapeutic Activities Neuromuscular Re-Ed Therapeutic Exercise [...] Therapy Hot or Cold Pack Progress Note Neuromuscular Re-Ed Therapeutic Activities Therapeutic Exercise Hot or Cold Pack Manual Therapy Neuromuscular Re-Ed Therapeutic Exercise Manual Therapy Hot or Cold Pack Neuromuscular Re-Ed Therapeutic Exercise Manual Therapy Hot or Cold Pack Neuromuscular Re-Ed Therapeutic Exercise Manual Therapy Neuromuscular Re-Ed Therapeutic Exercise Manual Therapy Hot or Cold Pack Neuromuscular Re-Ed Manual Therapy Therapeutic Exercise PT Evaluation Moderate Complexity Therapeutic Exercise Progress Note Therapeutic Exercise Therapeutic Activities Hot or Cold Pack Manual Therapy Neuromuscular Re-Ed Therapeutic Activities Neuromuscular Re-Ed Hot or Cold Pack Therapeutic Exercise Therapeutic Activities Neuromuscular Re-Ed Hot or Cold Pack Therapeutic Exercise Neuromuscular Re-Ed Therapeutic Activities Therapeutic Exercise Hot or Cold Pack Therapeutic Activities Hot or Cold Pack Neuromuscular Re-Ed Manual Therapy Therapeutic Exercise Progress Note Therapeutic Exercise Hot or Cold Pack Neuromuscular Re-Ed Manual Therapy Therapeutic Activities Therapeutic Activities Neuromuscular Re-Ed Therapeutic Exercise Manual Therapy Hot or Cold Pack Therapeutic Activities Hot or Cold Pack Neuromuscular Re-Ed Therapeutic Exercise Manual Therapy Therapeutic Exercise Therapeutic Activities Neuromuscular Re-Ed Hot or Cold Pack Manual Therapy Therapeutic Activities Hot or Cold Pack Neuromuscular Re-Ed Therapeutic Exercise Manual Therapy Therapeutic Activities Neuromuscular Re-Ed Therapeutic Exercise Manual Therapy Hot or Cold Pack Progress Note Therapeutic Activities Neuromuscular Re-Ed Therapeutic Exercise Manual Therapy Therapeutic Activities Manual Therapy Therapeutic Exercise Neuromuscular Re-Ed Therapeutic Activities Hot or Cold Pack Neuromuscular Re-Ed Therapeutic Exercise Manual Therapy Therapeutic Activities Therapeutic Exercise Manual Therapy Neuromuscular Re-Ed Neuromuscular Re-Ed Therapeutic Activities Therapeutic Exercise Electrical Stimulation Hot or Cold Pack Manual Therapy Therapeutic Activities Therapeutic Exercise Neuromuscular Re-Ed Manual Therapy Hot or Cold Pack PT Evaluation Low Complexity Manual Therapy Therapeutic Exercise Neuromuscular Re-Ed Advance Directives Directive Yes / No Effective Date File Name No Information Encounters Encounter Description Practice Location Reason(s) For Visit Diagnoses Date Provider Providers Copied on Encounter [facility] [address], [id number], tel:[phone] No Information 4 Amarilys Chamorro. . [facility], [id number], tel:[phone] No Information 4 Amarilys Chamorro. . Referring Provider: Nael Ashby , [place], [address]. tel:[phone] [facility] [address], [id number], [place] tel:[phone] No Information 4 Cayden Baires [address] [place] [address], [address], [address], . tel:[phone] Referring Provider: [address], [place], [address]. tel:[phone] [facility] [address] [place] [address], [id number], [place] tel:[phone] No Information 4 Rebecca Hester. . Referring Provider: [address], [place], [address]. tel:[phone] [facility] [address] [place] [address], [id number], [place] tel:[phone] No Information Oct-0 8 4 Cayden Rajesh. [address] [facility], [address], [place], [place], [facility], [place]. tel:[phone] Referring Provider: Nael Ashby , [place], [address]. tel:[phone] [place] [address] [address], [place], [place], [id number], [place] tel:[phone] No Information Sep-2 4 Fernandez Kacie. . Referring Provider: Jabari Powell, Nael [facility], [place], [address]. tel:[phone] [place], [place] [address], [place], [place], [id number], [place] tel:[phone] No Information Sep-2 4 Fernandez Kacie. . Referring Provider: Jabari Powell, Nael [facility], [place], [address]. tel:[phone] [place] [address], [id number], [place] tel:[phone] No Information Sep-1 4 America James. . Referring Provider: Jabari Powell, Nael [facility], [place], [address]. tel:[phone] [place] [address], [place], [place], [id number], [place] tel:[phone] No Information Sep-0 6-202 4 America James. . Referring Provider: Jabari Powell, Nael [facility], [place], [address]. tel:[phone] [place], [place] [address], [place], [place], [id number], [place] tel:[phone] No Information Sep-0 4-202 4 America James. . Referring Provider: Nael Ashby [facility], [place], [address]. tel:[phone] [place] [address] [address] [facility], [place], [place], [id number], [place] tel:[phone] No Information Jan-3 4 Fernandez Kacie. . Referring Provider: Jabari Powell, [address] [facility], [place], [address]. tel:[phone] [place] [address] [place] [address], [place], [place], [id number], [place] tel:[phone] No Information Jan- 4 America James. . Referring Provider: Jabari Powell, [facility], [place], [address]. tel:[phone] [place] [address], [place], [place], [id number], [place] tel:[phone] No Information Jan- 4 America James. . Referring Provider: Jbaari Powell, [address] [facility], [place], [address]. tel:[phone] [place] [address], [place], [id number], [place] tel:[phone] No Information Jan- 4 America James. . Referring Provider: Jabari Powell, [facility], [place], [address]. tel:[phone] [facility] [address] [address], [place], [id number], [place] tel:[phone] No Information Jan-0 4 Cayden Mena. [address] [facility], [address], [place], [address], [place]. tel:[phone] Referring Provider: Jabari Powell, [address] [facility], [place], [address]. tel:[phone] [facility] [address] [address], [place], [id number], [place] tel:[phone] No Information 4 America James. . Referring Provider: Jabari Powell, [address] [facility], [place], [address]. tel:[phone] [place] [address] [address], [place], [id number], [place] tel:[phone] No Information 4 America James. . Referring Provider: Jabari Powell, [address] [facility], [place], [address]. tel:[phone] [place] [address] [address], [place], [id number], [place] tel:[phone] No Information 4 America James. . Referring Provider: Jabari Powell, [address] [facility], [place], [address]. tel:[phone] [place] [address] [address], [place], [place], [id number], [place] tel:[phone] No Information 4 America James. . Referring Provider: Jabari Powell, [address] [facility], [place], [address]. tel:[phone] [place] [address] [address], [place], [id number], [place] tel:[phone] No Information 4 America James. . Referring Provider: Jabari Powell, [address] [facility], [place], [address]. tel:[phone] [place] [address] [address], [place], [id number], [place] tel:[phone] No Information 4 America James. . Referring Provider: Jabari Powell, [address] [facility], [place], [address]. tel:[phone] [place] [address] [address], [place], [place], [id number], [place] tel:[phone] [place] No Information Sep-2 3-202 0 Dellamano Christiano. . Referring Provider: Diallo Henderson, [address], [place], [address]. tel:[phone] [facility], [address], [place], [place], [id number], [place] tel:[phone] [place] No Information Sep-2 1-202 0 Dellamano Christiano. . Referring Provider: Diallo Henderson, [address], [place], [address]. tel:[phone] [facility] [address], [place], [id number], [place] tel:[phone] [place] No Information Sep-1 8 0 Anum Poole. . Referring Provider: Suzette [address], [place], [address]. tel:[phone] [facility] [address], [place], [place], [id number], [place] tel:[phone] [place] No Information Sep-1 6- 0 Dellamano Christiano. . Referring Provider: Suzette [address], [place], [address]. tel:[phone] [facility] [address], [place], [id number], [place] tel:[phone] [place] No Information Sep-1 -202 0 Dellamano Christiano. . Referring Provider: Suzette [address], [place], [address]. tel:[phone] [facility], [place], [place], [id number], [place] tel:[phone] [place] No Information Sep-1 1-202 0 Dellamano Christiano. . Referring Provider: Suzette V[address], [place], [address]. tel:[phone] [place] [address] [address], [place], [place], [id number], [place] tel:[phone] [place] No Information Sep-1 0-202 0 Dellamano Christiano. . Referring Provider: Suzette [address], [place], [address]. tel:[phone] [facility] [address], [place], [id number], [place] tel:[phone] [place] No Information Sep-0 9-202 0 Dellamano Christiano. . Referring Provider: Suzette [address], [place], [address]. tel:[phone] [facility] [address], [place], [place], [id number], [place] tel:[phone] [place] No Information Sep-0 3-202 0 Dellamano Christiano. . Referring Provider: Suzette [address], [place], [address]. tel:[phone] [facility] [address], [place], [place], [id number], [place] tel:[phone] [place] No Information Sep-0 2-202 0 Dellamano Christiano. . Referring Provider: Suzette [address], [place], [address]. tel:[phone] [facility] [address], [place], [place], [id number], [place] tel:[phone] [place] No Information Aug-3 1-202 0 Dellamano Christiano. . Referring Provider: Suzette [address], [place], [address]. tel:[phone] [facility] [address], [place], [place], [id number], [place] tel:[phone] [place] No Information 0 Threlkeld Bree. . Referring Provider: Suzette [address], [place], [address]. tel:[phone] [facility] [address], [place], [place], [id number], [place] tel:[phone] [place] No Information 0 Dellamano Christiano. . Referring Provider: Suzette [address], [place], [address]. tel:[phone] [facility] [address], [place], [id number], [place] tel:[phone] [place] No Information 0 Dellamano Christiano. . Referring Provider: Suzette [address], [place], [address]. tel:[phone] [facility] [address], [place], [id number], [place] tel:[phone] [place] No Information 0 Dellamano Christiano. . Referring Provider: Suzette V[address], [place], [address]. tel:[phone] [facility] [address], [place], [place], [id number], [place] tel:[phone] [place] No Information 0 Dellamano Christiano. . Referring Provider: Suzette [address], [place], [address]. tel:[phone] [facility] [address], [place], [place], [id number], [place] tel:[phone] [place] No Information 0 Delmargarita Alvarado. . Referring Provider: Diallo Henderson, [address], [place], [address]. tel:[phone] [facility], [address], [place], [place], [id number], [place] tel:[phone] [place] No Information 0 Delmargarita Alvarado. . Referring Provider: Diallo Henderson, [address], [place], [address]. tel:[phone] Family History Family Member Type Diagnosis Age At Onset No Information Payers Payer name Insurance type Covered alliance party ID Authoralanariel tobylaurie(s) [employer] [place] [id number] Social History Type Description Quantity Date Captured [...]
--- OUTSIDE RECORDS SUMMARY | 2024-09-19 08:23 | XMS_ITS | Clinical Summary ---
Author Organization [facility] Address [address] [place] [address] Care Team Providers Care Open Soaper Tender Name Role Phone Unavailable Primary Care Provider Unavailabl e Source Comments [facility],non-owned Affiliates and Associated Physician Practices is amultiple site organization consisting of ambulatory clinics and hospital sitesin [place], [place], [place] and [place]. This disclosure is being madepursuant to the Care Everywhere program and may not contain all information available regarding this patient. Last updated 18.[facility] Allergies No known active allergies Medications [...] Address KATHLEEN AZAR Personal/Famil y [address] [place] [address] Kathleen Azar Personal/Famil y Self 1975 [address] [place] [address] Kathleen Azar Personal/Famil y Self 1975 [address] [place] [address]
--- NOTE | 2024-09-19 08:40 | ED.BACK ---
HPI - Back Pain/Injury General Chief Complaint: Back Pain/Injury Stated Complaint: lower back pain - hard to walk Time Seen by Provider: 09/19/24 08:16 Source: patient and family Mode of arrival: ambulatory Limitations: no limitations History of Present Illness HPI Narrative: Patient presents with low back pain that has made it hard to walk. A few months ago, in June, she was putting a cast iron dish in the oven when she felt a pop. She had low back pain for approximately 1 week then intermittently since. Yesterday she was shopping and walking a lot on concrete. She started having left anterior leg and toe numbness. She has tried ice, Tylenol, and as well as Advil but switched to Naproxen before coming in. Pain 3/10 in severity now. No bowelNo saddle /bladder incontinence but difficulty initiating a stream. . No saddle anesthesia in groin but she does have pain in her pubic area like when she had children and is having some in buttocks. No fever. No history cancer, IVDU. Having some low abdominal pain. No dysuria or hematuria. No syncope. Related Data Home Medications ?Medication ?Instructions ?Recorded ?Confirmed ?Last Taken ?Type cholecalciferol (vitamin D3) 25 25 mcg PO DAILY 08/27/22 12/12/23 Unknown History mcg (1,000 unit) capsule ascorbic acid (vitamin C) 500 mg mg PO 12/12/23 12/12/23 Unknown History capsule folic acid 1 mg tablet 1 mg PO DAILY 12/12/23 12/12/23 Unknown History polysaccharide iron complex 200 mg 200 mg PO DAILY 12/12/23 12/12/23 Unknown History iron capsule (EZFE 200) Allergies Allergy/AdvReac Type Severity Reaction Status Date / Time shrimp Allergy Difficulty Verified 09/19/24 07:12 Swallowing shaneka AdvReac Intermediate Swelling Verified 09/19/24 07:12 [facility] Past Medical History Medical History Food impaction of esophagus Asthma Overweight (BMI 25.0-29.9) Eosinophilic esophagitis Surgical History Surgical History H/O tubal ligation Family History Family History Mother Family history of pancreatic disease Other Diabetes mellitus Family history of mental disorder Social History Social History (Updated 09/20/24 @ 21:13 by Allyson Carvalho MD) Smoking status: Never smoker Alcohol intake: current Alcohol use details: 1 or 2 drinks a year Substance use: never Substance use type: does not use Other substance usage details: denies IVDU Lack of Transportation: No Lack of Food: Never True Current Housing: I Have Housing Concerned About Future Housing: No Difficulty Paying Gas/Electric Bills: No Difficulty Paying for Meds: No Currently Unemployed: No Education: Trade/Vocational Certificate Difficulty w/ Childcare or Family Care: No Living arrangements: with family Occupation/Education: occupation Gender identity (if verbalized by the patient): Female Spiritual care concerns: No Agree to blood products: Yes Exam Narrative: GENERAL: Well-appearing, well-nourished, and in no acute distress. HEAD: Normocephalic, atraumatic. EYES: Non injected, non icteric ENT: Nares clear, no rhinorrhea or epistaxis. NECK: Supple. CHEST: Speaking in full sentences. No respiratory distress. HEART: Regular rate and rhythm. . ABDOMEN: Soft, nondistended. EXTREMITIES: Normal range of motion. No lower extremity edema. SKIN: Warm, dry, no rash. BACK: Normal curvature, demonstrating flexion and extension. No bony step offs or deformities. No appreciable spasms. NEURO: Alert and oriented x3. Diminished sensation throughout anterior aspect of left leg. 4/5 left ankle dorsiflexion, 5/5 R ankle dorsiflexion, 5/5 left and right ankle plantarflexion; 5/5 b/l knee flexion and extension. 5/5 b/l hip flexion, hip abduction, adduction. Brisk symmetric bilateral patellar reflexes ELENI: Normal rectal tone. No diminished sensation. No palpable masses. PSYCH: Normal mood and affect. Course Vital Signs Vital signs: Vital Signs Temperature 97.2 F L 09/19/24 07:01 Pulse Rate 63 09/19/24 07:01 Respiratory Rate 18 09/19/24 07:01 Blood Pressure 136/58 L 09/19/24 07:01 Pulse Oximetry 100 09/19/24 07:01 Oxygen Delivery Room Air 09/19/24 07:01 Temperature 97.2 F L 09/19/24 07:01 Pulse Rate 63 09/19/24 07:01 Respiratory Rate 18 09/19/24 07:01 Blood Pressure 136/58 L 09/19/24 07:01 Pulse Oximetry 100 09/19/24 07:01 Oxygen Delivery Room Air 09/19/24 07:01 MDM - Back Pain/Injury MDM Narrative Medical decision making narrative: Patient presents with low back pain. In the emergency department she is afebrile with acceptable VS. Back has no deformities, or signs of trauma. Curvature is within normal limits. No tenderness is noted on palpation of the spinous processes which are midline. Lumbar paraspinal muscles are not tender and are without spasm. Patient demonstrates flexion, extension of the lumbar spine. They do not have any other red flags for fracture, malignancy, infection (e.g. spinal epidural abscess), or aortic/vascular: Age, not on chronic steroids, no cancer, no fever, IV drug use, HIV, immunosuppression, syncope. However, given her report of paresthesias, reported difficulty initiating urinary stream, there is high concern for cord compression/cauda equina, etc. PVR 15mL and normal rectal tone making cauda equina or compression less likely, especially given brisk patellar reflexes bilaterally. Urinalysis with 1+ leukocyte esterase and pyuria but without marked bacteriuria and with squamous cells. in the absence of urinary symptoms ( no hematuria, dysuria, urgency or frequency), will defer giving antibiotics and instead obtain urine culture. Shared decision making with patient regarding this and she concurs. Her difficulty (4/5 strength) with left ankle dorsiflexion would suggest possible peroneal/deep fibular nerve involvement and the reported sensory loss of the anteromedial thigh with suggest L4 root involvement. She had no weakness of the quadriceps muscle or difficulty extending the knee. Discussed multimodal pain regimen with patient as well as very strict ED return precautions. Verifies understanding. Differential Diagnosis Differential diagnosis: Likely lumbar radiculopathy, sciatica, strain of lumbar region, discitis and other ( Cauda equina/ compression syndrome/conus medullaris; meralgia paresthetica) Lab Data Attestation: I reviewed the patient's lab results. Lab results narrative: CBC and CMP unremarkable 09/19/24 09:35 09/19/24 09:35 Labs: Lab Results 03/30/25 03/30/25 03/30/25 Range/Units 09:18 09:20 09:35 WBC 9.0 (4.5-10.0) K/mm3 RBC 4.56 (4.2-5.4) M/mm3 Hgb 13.5 (12.0-15.0) g/dL Hct 42.2 (37.0-47.0) % MCV 92.5 (80-100) fl MCH 29.6 (26-34) pg MCHC 32.0 (32-36) g/dl RDW 13.6 (11.5-14.5) % Plt Count 269 (150-375) k/mm3 MPV 10.0 (7.4-10.4) fl Immature Gran % (Auto) 0.2 (0-0.5) % Neut % (Auto) 69.4 (45.5-73.1) % Lymph % (Auto) 20.2 (18.3-44.2) % Glades % (Auto) 5.2 (2.6-8.5) % Eos % (Auto) 4.1 (0-4.4) % Baso % (Auto) 0.9 (0.2-1.2) % Lymph # (Auto) 1.81 (0.9-3.2) K/mm3 Glades # (Auto) 0.5 (0.1-0.6) K/mm3 Eos # (Auto) 0.4 H (0-0.3) K/mm3 Baso # (Auto) 0.1 (0.0-0.1) K/mm3 Abs Immat Gran (auto) 0.02 (0.00-0.031) K/mm3 Absolute Neuts (auto) 6.2 (1.3-6.7) K/mm3 Absolute Nucleated RBC 0.000 (0.0-0.012) K/mm3 Nucleated RBC % 0.0 (0.0-0.2) % Sodium 141 (137-145) mmol/L Potassium 4.0 (3.4-5.0) mmol/L Chloride 105 (98-107) mmol/L Carbon Dioxide 25 (22-30) mmol/L Anion Gap 11 (4-12) mmol/L BUN 14 (7-17) mg/dL Creatinine 0.85 (0.7-1.0) mg/dL Estim Creat Clear Calc 72 ml/min Estimated GFR > 60 (59 - ) Glucose 92 (65-110) mg/dL Calcium 9.4 (8.4-10.2) mg/dL Magnesium 1.9 (1.6-2.3) mg/dL Total Bilirubin 1.2 (0.2-1.3) mg/dL AST 23 (14-36) U/L ALT 22 (6-35) U/L Alkaline Phosphatase 98 (38-126) U/L Total Creatine Kinase 84 (30-135) U/L Total Protein 8.0 (6.3-8.2) g/dL Albumin 4.6 (3.5-5.1) g/dL Urine Color Yellow (Yellow) Urine Appearance Clear (Clear) Urine pH 7.5 (5.0-9.0) Ur Specific Clements 1.012 (1.001-1.035) Urine Protein Negative (Negative) mg/dL Urine Glucose (UA) Negative (Negative) mg/dL Urine Ketones Negative (Negative) mg/dL Ur Blood (Man) Negative (Negative) Urine Nitrate Negative (Negative) Urine Bilirubin Negative (Negative) Urine Urobilinogen 0.2 (<2.0) mg/dL Leukocyte Esterase Rfl 1+ H (Negative) CHRIS/UL Urine RBC 0-2 (0-2) /hpf Urine WBC 11-20 H (0-3) /hpf Ur Squamous Epith Cells Moderate (Few) /hpf Urine Bacteria Rare /hpf Urine Casts 0-2 POC Urine HCG, Qual Negative (Negative) Imaging Data Radiologist's impression: Impression: Straightening of the normal lordotic curvature of the lumbar spine, likely muscular in origin. No acute compression fracture. Discharge Plan Discharge Clinical Impression: Low back pain, Left leg paresthesias Patient Disposition: Home, Self-Care Condition: Stable Instructions: Antibiotic Form, Low Back Strain (ED), Acute Low Back Pain (ED), Meralgia Paresthetica (ED), Paresthesia (ED), Lumbar Radiculopathy (ED), Lower Back Exercises (ED) Additional Instructions: as we discussed, the main stays of treatment are multimodal pain regimen to help improve your pain to allow you to balance both rest with maintaining activity and performing low back strengthening exercises. Acetaminophen/Tylenol (maximum 4000 mg per day) is safe to take with NSAIDs (ibuprofen/Motrin) for pain relief. You are also prescribed a muscle relaxer topical approaches. Follow-up with primary care physician. Return to the ER if you have increased pain in your back, you develop lower extremity weakness/numbness/paralysis, you have numbness or tingling in your private parts, or you are unable to control your ability to urinate/stool. Patient Language: Afghan Prescriptions: New methocarbamol 750 mg tablet 750 mg PO HS Qty: 10 0RF ibuprofen 600 mg tablet 600 mg PO TID PRN (Reason: pain) Qty: 30 0RF acetaminophen 500 mg capsule 1,000 mg PO Q6H PRN (Reason: pain) Qty: 30 0RF lidocaine 4 % adhesive patch,medicated 1 patch topical DAILY PRN (Reason: pain) Qty: 5 0RF No Action cholecalciferol (vitamin D3) 25 mcg (1,000 unit) capsule 25 mcg PO DAILY folic acid 1 mg tablet 1 mg PO DAILY ascorbic acid (vitamin C) 500 mg capsule PO EZFE 200 200 mg iron capsule 200 mg PO DAILY Follow-up/Referrals: Brea Boggs DO [Primary Care Provider] - Stand Alone Forms: Work/School Release IP Time of Disposition: 11:19
[2024-09-19] MEDS: HYDROcodone/acetaminophen (*CRX) 5-325 MG TABLET 1 TAB PO (09:08)
[2024-09-19 09:21] LABS: BEDSIDEPREGUCG Negative (Negative)
[2024-09-19 09:30] LABS: Add Urine Microscopic? YES; Appearance Urine Clear (Clear); Bacteria Urine Rare /hpf; Bilirubin Urine Negative (Negative); Blood Urine Negative (Negative); Color Urine Yellow (Yellow); Glucose Urine UA Negative (Negative); Ketones Urine Negative (Negative); Leukocyte Esterase Ur 1+ LEU/UL (Negative); Nitrate Urine Negative (Negative); Non Pathogenic Casts 0-2; Protein Urine Negative (Negative); RBC Urine 0-2 /hpf (0-2); Specific Grav Ur 1.012 (1.001-1.035); Squamous Epithelial Cell Urine Moderate /hpf (Few); Urobilinogen Urine 0.2 mg/dL (<2.0); pH Urine 7.5 (5.0-9.0)
[2024-09-19 09:42] LABS: Basophils Absolute Auto 0.1 K/mm3 (0.0-0.1); Basophils Percent Auto 0.9 % (0.2-1.2); Eosinophils Absolute Auto 0.4 K/mm3 (0-0.3); Eosinophils Percent Auto 4.1 % (0-4.4); Hematocrit 42.2 % (37.0-47.0); Hemoglobin 13.5 g/dL (12.0-15.0); Immature Granulocyte Absolute 0.02 K/mm3 (0.00-0.031); Immature Granulocyte Percent A 0.2 % (0-0.5); Lymphocytes Absolute Auto 1.81 K/mm3 (0.9-3.2); Lymphocytes Percent Auto 20.2 % (18.3-44.2); Mean Corpuscular Hemoglobin 29.6 pg (26-34); Mean Corpuscular Volume 92.5 fl (80-100); Monocytes Absolute Auto 0.5 K/mm3 (0.1-0.6); Monocytes Percent Auto 5.2 % (2.6-8.5); Neutrophils Absolute Auto 6.2 K/mm3 (1.3-6.7); Neutrophils Percent Auto 69.4 % (45.5-73.1); Platelet Count Result 269 k/mm3 (150-375); Red Blood Count 4.56 M/mm3 (4.2-5.4); Red Cell Distribution Width 13.6 % (11.5-14.5)
[2024-09-19 09:54] LABS: Alanine Aminotransferase 22 U/L (6-35); Albumin Level 4.6 g/dL (3.5-5.1); Alkaline Phosphatase 98 U/L (38-126); Anion Gap 11 mmol/L (4-12); Aspartate Amino Transferase 23 U/L (14-36); Bilirubin,Total 1.2 mg/dL (0.2-1.3); Blood Urea Nitrogen 14 mg/dL (7-17); Calcium 9.4 mg/dL (8.4-10.2); Carbon Dioxide 25 mmol/L (22-30); Chloride 105 mmol/L (98-107); Creatine Kinase 84 U/L (30-135); Estimated CRCL calculation 72 ml/min; Estimated Glomerular Filt Rate > 60; Glucose 92 mg/dL (65-110); Magnesium 1.9 mg/dL (1.6-2.3); Sodium 141 mmol/L (137-145)
[2024-09-19] MEDS: diazePAM (*CRX) 5 MG TABLET PO (11:12)
== END 2024-09-19 11:32 | disposition home or self-care (01) ==
PROVIDERS: Emergency Provider Student in an Organized Health Care Education/Training Program; PCP Family Medicine
DX: M54.50 Low back pain, unspecified (principal); R20.2 Paresthesia of skin; J45.909 Unspecified asthma, uncomplicated; E66.3 Overweight; Z68.26 Body mass index [BMI] 26.0-26.9, adult; R82.998 Other abnormal findings in urine
CPT/HCPCS: 36415; 72131; 80053; 81001; 81025; 82550; 83735; 85025; 87086; 96372; 99284; A9270

== ENCOUNTER 2025-01-17 09:27 | Emergency (ER) | payer OTHER, SELFPAY ==
--- NOTE | ~2025-01-17 | XR_ITS ---
HISTORY: injury COMPARISON: None TECHNIQUE: 2 views of the right foot were performed FINDINGS: No acute fracture or dislocation is appreciated. No significant degenerative disease is noted. The base of the fifth metatarsal is intact. No calcaneal spur is noted. No significant soft tissue swelling is present. IMPRESSION: Unremarkable radiographic evaluation of the right foot, as detailed above. Reviewed, dictated and finalized at location A. IMPRESSION: Unremarkable radiographic evaluation of the right foot, as detaile d above.
--- NOTE | ~2025-01-17 | XR_ITS ---
HISTORY: injury COMPARISON: None TECHNIQUE: 2 views of the right ankle were performed FINDINGS: No acute fracture or dislocation. No significant soft tissue swelling. The ankle mortise is preserved. Bone mineralization is age-appropriate. IMPRESSION: Unremarkable radiographic evaluation of the right ankle, as detailed above. Reviewed, dictated and finalized at location A. IMPRESSION: Unremarkable radiographic evaluation of the right ankle, as detail ed above.
[2025-01-17 09:34] VITALS: O2SAT 100
[2025-01-17 09:38] VITALS: BP 139/77; PULSE 63; RESP 18; TEMP 36.2; O2SAT 97
--- OUTSIDE RECORDS SUMMARY | 2025-01-17 09:50 | XMS_ITS | Clinical Summary ---
Author Organization [facility] Address [address] [place] [place] [address] Care Team Providers Care President Celebrity Acquistion Name Role Phone Unknown, Provider Primary Care Provider Unavaila ble Source Comments [facility],non-owned Affiliates and Associated Physician Practices is amultiple site organization consisting of ambulatory clinics and hospital sitesin [place], [place], [place] and [place]. This disclosure is being madepursuant to the Care Everywhere program and may not contain all information available regarding this patient. Last updated 18.[facility] Allergies No known active allergies Medications * Be aware that medications may not be up to date on this document. Alwaysverify current medications with the patient. triamcinolone acetonide (KENALOG) 0.1 % creamIndication s:Atopic Dermatitis Apply to affected area 2 times daily Reasons: Atopic Dermatitis 80 g 7 Active predniSONE (DELTASONE) 20 MG tabletIndicatio ns:contact dermatitis Take three tablets PO once daily x 3 days, 2 tablets daily x 3 days, one tablet daily x 2 days Reasons: contact dermatitis 17 Tab 7 Active Encounters Date Type Department Care Team Description 12/28/2024 1:47 PM CDT - 12/28/2024 11:59 PM CDT Hospital Encounter [facility] [address] [place] [address] Suraj Bosch MD Discharge Disposition: Home or Self Care 12/28/2024 1:30 PM CDT Office Visit [facility] [address] [place] [address] Suraj Bosch MD Superior labrum [id number] r (SLAP) tear of left shoulder (Primary Dx) 12/23/2024 Orders Only [facility] [address] [place] [address], [place] [address] Suraj Bosch MD Left shoulder pain, unspecified chronicity 12/01/2024 Travel from Last 3 Months Social History Tobacco Use Types Packs/Day Years Used Date Smoking Tobacco: Never Tobacco Cessation:Counseling Given: Not Answered Alcohol Use Standard Drinks/Week Comments No 0 (1 standard drink = 0.6 oz pur e alcohol) Comments No Sex and Gender Information Value Date Recorded Sex Assigned at Not on file Legal Sex Female 9:31 AM CDT Gender Identity Not on file Sexual Orientation Not on file Last Filed Vital Signs Vital Sign Reading Time Taken Comments Blood Pressure 114/74 11/22/2016 5:27 PM CDT Pulse 64 11/22/2016 5:27 PM CDT Temperature 36.8 C (98.2 F) 11/22/2016 5:27 PM CDT Respiratory Rate 16 11/22/2016 5:27 PM CDT Oxygen Saturation 98% 10/29/2016 9:42 AM CDT Inhaled Oxygen Concentration - - Weight 82.6 kg (182 lb) 12/28/2024 1:57 PM CDT Height 175.3 cm (5' 9) 12/28/2024 1:57 PM CDT Body Mass Index 26.88 12/28/2024 1:57 PM CDT Plan of Treatment Health Maintenance Due Date Last Done Comments COLOGUARD (AGES 45-75) - COLON CA SCREENING 1973 COLON MONITORING 1973 COLONOSCOPY - COLON CA SCREENING 1973 CT COLONOGRAPHY - COLON CA SCREENING 1973 Colorectal Cancer Screening 1973 FIT - COLON CA SCREENING 1973 FLEX SIG - COLON CA SCREENING 1973 MAMMOGRAM 1973 HIV SCREENING 1988 HEPATITIS C SCREENING 08/13/1991 DTAP/TDAP/TD VACCINES (1 - Tdap) 1992 HEPATITIS B VACCINE (1 of 3 - 19+ 3-dose series) 1992 PAP SMEAR 1994 PNEUMOCOCCAL VACCINE 50+ (1 of 1 - PCV) 2023 ZOSTER VACCINE (1 of 2) 2023 COVID-19 VACCINE (3 - 2023- season) 2024 11/24/2020, 11/03/2020 DEPRESSION SCREENING 06/23/2024 INFLUENZA VACCINE (#1) 2025 07/27/2014 SCREENING FOR DIABETES 11/03/2027 , 11/02/2024, 10/30/2024, Additional history exists LIPID TESTING 10/27/2029 10/27/2024 HIB VACCINE Aged Out No longer eligi ble based on patient's age to complete this topic HPV VACCINE Aged Out No longer eligi ble based on patient's age to complete this topic MENINGOCOCCAL (Group B) VACCINE SHARED DECISION-MAKING Aged Out No longer eligible based on patient's age to complete this topic MENINGOCOCCAL GROUPS A/C/Y/W VACCINE Aged Out No longer eligible based on patient's age to complete this topic Procedures Procedure Name Priority Date/Time Associated Diagnosis Comments XR SHOULDER LEFT 2VW OR MORE Routine 12/28/2024 1:59 PM CDT Left shoulder pain, unspecified chronicity from Last 3 Months Results * XR Shoulder Left 2Vw or More (12/28/2024 1:59 PM CDT) Anatomical Region Laterality Modality Upper Extremity Radiographic Fern ging 12/28/2024 2:06 PM CDT Impressions 12/28/2024 2:07 PM CDT IMPRESSION: Normal. > Interpreting Provider: Darshan Alicea MD on 12/28/2024 2:07 PM Narrative 12/28/2024 2:07 PM CDT PROCEDURE: XR SHOULDER LEFT 2VW OR MORE DATE/TIME OF EXAM: 12/28/2024 1:59 PM CLINICAL INFORMATION: None relevant/not provided if blank. Indication: M25.512: Left shoulder pain, unspecified chronicity Additional History: COMPARISON: None. FINDINGS: There is no fracture or dislocation. There is no acromioclavicular or glenohumeral arthritis. Procedure Note Darshan Alicea MD - 12/28/2024 PROCEDURE: XR SHOULDER LEFT 2VW OR MORE DATE/TIME OF EXAM: 12/28/2024 1:59 PM CLINICAL INFORMATION: None relevant/not provided if blank. Indication: M25.512: Left shoulder pain, unspecified chronicity Additional History: COMPARISON: None. FINDINGS: There is no fracture or dislocation. There is no acromioclavicular or glenohumeral arthritis. IMPRESSION: Normal. > Interpreting Provider: Darshan Alicea MD on 12/28/2024 2:07 PM Suraj Bosch MD DIAGNOSTIC IMAGING ORDERABLES F inal Result from Last 3 Months Insurance * Guarantor: KATHLEEN AZAR Account Type Relation to Patient Date of Phone Billing Address Personal/Family [address] [place] [address] SELF PAY NO INSURANCE Member Subscriber Plan / Payer (Ef fective for All Dates) Name:Kathleen Azar Member ID:Not on file Relation to Subscriber:Not on file Name:KATHLEEN AZAR Subscriber ID:Not on file Address: [address] [place] [address] Payer ID:Not on file Group ID:Not on file Type:Self Pay Address: [place], [place] * Guarantor: KATHLEEN AZAR Account Type Relation to Patient Date of Phone Billing Address Personal/Family [address] [place] [address] Care Teams President Celebrity Acquistion Relationship Specialty Start Date End Date Unknown, Provider PCP - General 12/06/24
--- OUTSIDE RECORDS SUMMARY | 2025-01-17 09:50 | XMS_ITS | Clinical Summary ---
Author Organization [facility] Address [address] [place] [address] Phone Care Team Providers Care Pastry Finisher Name Role Phone Provider, None Primary Care [...] 11:01 PM CDT Height 175.3 cm (5' 9) 04/05/2020 11:01 PM CDT Body Mass Index 27.47 04/05/2020 11:01 PM CDT Plan of Treatment Health Maintenance Due Date Last Done Comments Hepatitis C Virus (HCV) Screening 1973 TdaP Immunization 1973 Hepatitis B Immunization (1 of 3 - 19+ 3-dose series) 1992 Pap Smear 1994 Cervical Cancer Screening (CCS) 2003 HPV/Cotest 2003 Cologuard 2018 Colonoscopy 2018 Colorectal Cancer Screening 2018 Immunochemical Fecal Occult Blood 2018 Pneumococcal Immunization (5 0+ years) (1 of 1 - PCV) 2023 Zoster Immunization (1 of 2) 2023 SARS-COV-2 Immunization (3 - season) 2024 11/24/2020, 11/03/2020 Influenza Immunization (#1) 2025 Respiratory Syncytial Virus (RSV) Immunization (Adult) (1 - 1-dose 75+ series) 2048 Human Papillomavirus (HPV) Immunization Aged Out No longer eligible b ased on patient's age to complete this topic Meningococcal Immunization (ACWY) Aged Out No longer eligible b ased on patient's age to complete this topic Rotavirus Immunization Aged Out No lo nger eligible based on patient's age to complete this topic Insurance [place]ICAID [place] Care Teams Pastry Finisher Relationship Specialty Start Date End Date Provider, None [place] PCP - General 04/05/20
--- OUTSIDE RECORDS SUMMARY | 2025-01-17 09:50 | XMS_ITS | Clinical Summary ---
Author Organization [facility] Address [address] [place] [address] Care Team Providers Care Marriage And Family Teacher Name Role Phone Dale Wallace MD,PHD Unavailable Unavail able Brea Boggs DO Primary Care Provider [phone] Allergies No known active allergies Medications probiotic (FLORAJEN3) Cap capsule Take 1 capsule by mouth daily with breakfast. Active NON FORMULARY Take 1 tablet by mouth daily. OTC - Vegetable Iron Supplement Active eletriptan (RELPAX) 40 MG tablet Take 1 tablet (40 mg total) by mouth as needed. May repeat in 2 hours if necessary. Max dose of 80mg daily 30 tablet 5 Active Active Problems Problem Noted Date Diagnosed Date Unilateral weakness 10/27/2024 Chest pain 07/06/2019 GERD (gastroesophageal reflux disease) 0 Migraines 07/06/2019 SOB (shortness of breath) 07/06/2019 Palpitations 07/06/2019 Encounters Date Type Department Care Team Description 11/08/2024 Telephone [facility] - [facility] [address] [facility], [address] [place] [address] Saray Bass MD Appointment Request 11/02/2024 11:48 AM CDT - 11/02/2024 6:40 PM CDT Emergency [facility] [place] [address] José Miguel Iqbal DO Headache Discharge Disposition: Home or Self Care (Routine Discharge) 11/02/2024 Travel 10/27/2024 11:44 AM CDT - 10/30/2024 12:15 PM CDT Hospital Encounter [facility] [address] [place] [address] Basilia Briggs MD Romick, Jordan K, MD Neurologic Problem Discharge Disposition: Home or Self Care (Routine Discharge) 10/27/2024 Travel from Last 3 Months Family History * Patient is adopted Medical [...] = 0.6 oz p ure alcohol) rarely B1300 Health Literacy Answer Date Recor ded How often do you need to hav e someone help you when you read instructions, pamphlets, or other written material from your doctor or pharmacy? Never 10/27/2024 [facility] Utilities Answer Date Recorded In the past 12 months has e [employer], gas, oil, or water drchrono threatened to shut off services in your home? No 10/27/2024 Humiliation, Afraid, Rape, and Kick questionnair e Answer Date Recorded Within the last year, have y ou been afraid of your partner or ex-partner? No 10/27/2024 Within the last year, have y ou been humiliated or emotionally abused in other ways by your partner or ex-partner? No Within the last year, have y ou been kicked, hit, slapped, or otherwise physically hurt by your partner or ex-partner? No 10/27/2024 Within the last year, have y ou been raped or forced to have any kind of sexual activity by your partner or ex-partner? No 10/27/2024 Social Connection and Isolation Panel [NHANES] A nswer Date Recorded In a typical week, how many times do you talk on the phone with family, friends, or neighbors? Three times a week 10/28/19 25 How often do you get togethe r with friends or relatives? Three times a week 10/27/2024 How often do you attend chur ch or jainism services? Never 10/27/2024 Do you belong to any clubs o r organizations such as quaker groups, unions, fraternal or athletic groups, or school groups? No 10/27/2024 How often do you attend meet ings of the clubs or organizations you belong to? Never 10/27/2024 Are you , , di vorced, , never , or living with a partner? Living with partner 10/27/2024 AUDIT-C Answer Date Recorded Q1: How often do you have a drink containing alc ohol? 2-4 times a month 10/27/2024 Q2: How many drinks containi ng alcohol do you have on a typical day when you are drinking? 1 or 2 10/27/2024 Q3: How often do you have si x or more drinks on one occasion? Less than monthly 10/27/2024 Overall Financial Resource Strain (CARDIA) Answe r Date Recorded How hard is it for you to pa y for the very basics like food, housing, medical care, and heating? Not hard at all 10/27/2024 [facility] - Occupational Stress Questionnaire Answer Date Recorded Do you feel stress - tense, restless, nervous, or anxious, or unable to sleep at night because your mind is troubled all the time - these days? Not at all 10/27/2024 Hunger Vital Sign Answer Date Recorded Within the past 12 months, y ou worried that your food would run out before you got the money to buy more. Never true 10/28/19 25 Within the past 12 months, t he food you bought just didn't last and you didn't have money to get more. Never true 10/27/2024 PRAPARE - Transportation Answer Date Re corded In the past 12 months, has l ack of transportation kept you from medical appointments or from getting medications? No 12/2024 In the past 12 months, has l ack of transportation kept you from meetings, work, or from getting things needed for daily living? No 10/27/2024 Housing Stability Vital Sign Answer Randell e Recorded In the last 12 months, was t here a time when you were not able to pay the mortgage or rent on time? No 10/27/2024 In the past 12 months, how m any times have you moved where you were living? 0 10/27/2024 At any time in the past 12 m [facility], were you homeless or living in a long term (including now)? No 10/27/2024 Comments No Sex and Gender Information Value Date Recorded Sex Assigned at Female 10/27/2024 6:21 PM CDT Legal Sex Female 11:22 PM CDT Gender Identity Female 10/27/2024 6:21 PM CDT Sexual Orientation Not on file Occupation Industry Job Start Date Job End Date [employer] Not on file Not on file Not on file Last Filed Vital Signs Vital Sign Reading Time Taken Comments Blood Pressure 138/64 11/02/2024 4:53 PM CDT Pulse 68 11/02/2024 4:53 PM CDT Temperature 36.6 C (97.9 F) 11/02/2024 11:42 AM CDT Respiratory Rate 16 11/02/2024 4:53 PM CDT Oxygen Saturation 100% 11/02/2024 4:53 PM CDT Inhaled Oxygen Concentration - - Weight 90.3 kg (199 lb) 11/02/2024 11:42 AM CDT Height 175.3 cm (5' 9) 11/02/2024 11:42 AM CDT Body Mass Index 29.39 11/02/2024 11:42 AM CDT Plan of Treatment Health Maintenance Due Date Last Done Comments ASCVD Statin 1973 Cervical Cancer Screening Pa p Smear (Age [...] Every 5 Years 2003 Cervical Cancer Screening wi th HPV 2003 Mammogram Screening 2013 Pneumococcal Vaccine: 50+ Years (1 of 1 - PCV) 2023 Zoster Vaccines (1 of 2) 2023 COVID-19 Vaccine (2023-2 5 season) 2024 11/24/2020, 11/03/2020 PHQ-2 (Physician [place]) 06/23/2024 Meningococcal B Vaccine Aged Out No l onger eligible based on patient's age to complete this topic Meningococcal Vaccine Aged Out No charley jamla eligible based on patient's age to complete this topic RSV Immunizations Under 20 Months Aged Out No longer eligible b ased on patient's age to complete this topic Procedures Procedure Name Priority Date/Time Associated Diagnosis Comments CT HEAD WO CON STAT 11/02/2024 4:47 PM CDT CTA HEAD+NECK STAT 11/02/2024 4:47 PM CDT COMPREHENSIVE METABOLIC PANEL STAT 11/02/2024 12:00 PM CDT SED RATE, ERYTHROCYTE (ESR) STAT 11/02/2024 12:00 PM CDT CBC W/DIFF AUTOMATED STAT 11/02/2024 12:00 PM CDT CBC W/DIFF AUTOMATED Routine 10/30/2024 6:00 AM CDT BASIC METABOLIC PANEL Routine 10/30/2024 6:00 AM CDT BASIC METABOLIC PANEL Routine 10/29/2024 4:38 AM CDT CBC W/DIFF AUTOMATED Routine 10/29/2024 4:38 AM CDT XR CHEST PORTABLE STAT 10/28/2024 9:3 0 PM CDT TSH W/REFLEX STAT 10/28/2024 9:25 PM CDT TROPONIN, QUANT STAT 10/28/2024 9:25 PM CDT POCT GLUCOSE - DOCKED DEVICE Routine 10/28/2024 9:15 PM CDT ECG 12-LEAD STAT 10/28/2024 9:11 PM CDT MRI BRAIN W CON JERMAINE 10/28/2024 8:47 PM CDT MRI LUMB SPINE WWO CON JERMAINE 5 8:47 PM CDT MRI THOR SPINE WWO CON JERMAINE 5 8:46 PM CDT MRI CERV SPINE WWO CON JERMAINE 5 8:36 PM CDT C-REACTIVE PROTEIN Routine 10/28/2024 10 :04 AM CDT SED RATE, ERYTHROCYTE (ESR) Routine 10/28/2024 10:04 AM CDT BASIC METABOLIC PANEL Routine 10/28/2024 7:46 AM CDT CBC W/DIFF AUTOMATED Routine 10/28/2024 7:46 AM CDT POCT GLUCOSE - DOCKED DEVICE Routine 10/27/2024 5:15 PM CDT MRI BRAIN WO STROKE FAST PROTOCOL STAT 10/27/2024 4:45 PM CDT USE ECHOCARDIOGRAM W CON JERMAINE 10/27/2024 4:41 PM CDT THYROID STIM HORMONE TSH STAT 10/27/2024 2:54 PM CDT HEMOGLOBIN, GLYCOSYLATED Routine 10/27/2024 2:54 PM CDT LIPID PANEL STAT 10/27/2024 2:52 PM CDT ECG 12-LEAD STAT 10/27/2024 12:41 PM CDT POCT GLUCOSE - DOCKED DEVICE Routine 10/27/2024 12:36 PM CDT CTA HEAD+NECK STAT 10/27/2024 12:[address] HEAD WO CON STAT 10/27/2024 12:28 PM CDT XR CHEST PORTABLE STAT 10/27/2024 12: 04 PM CDT URINALYSIS, AUTO, COMPLETE STAT 10/27/2024 11:55 AM CDT TROPONIN, QUANT STAT 10/27/2024 11:53 AM CDT PROTHROMBIN TIME, VENOUS STAT 10/27/2024 11:53 AM CDT COMPREHENSIVE METABOLIC PANEL STAT 10/27/2024 11:53 AM CDT CBC W/DIFF AUTOMATED STAT 10/27/2024 11:53 AM CDT POCT GLUCOSE - DOCKED DEVICE Routine 10/27/2024 11:35 AM CDT from Last 3 Months Results * CTA HEAD+NECK (11/02/2024 4:47 PM CDT) Only the most recent of2 resultswithin the time period is included. Anatomical Region Laterality Modality Head, Neck Computed Tomogra phy 11/02/2024 5:01 PM CDT Impressions 11/02/2024 5:10 PM CDT IMPRESSION: 1. Patent proximal intracranial arterial vasculature. 2. No significant stenosis involving the proximal internal carotid arteries. Patent carotid and vertebral arteries throughout their course. Ordered By: JOSÉ MIGUEL IQBAL Interpreted By: Ayad Gamboa MD, 11/02/2024 5:01 PM Narrative 11/02/2024 5:10 PM CDT [facility] [address] [place], [place] [address] Examination: CTA HEAD+NECK, 11/02/2024 4:30 PM. Technique: Computed tomographic images of the head and neck were obtained after the administration of 80 mL of Isovue-370 injected through the IV, without evidence of an adverse reaction. Additional coronal and sagittal reformatted as well as maximum intensity projection images were generated at a separate workstation. Carotid stenoses were measured according to NASCET criteria. A dose lowering technique was used for this procedure, which may include, but is not limited to, dose reduction technique, automated exposure control, the use of iterative reconstruction, and ALARA (As Low As Reasonably Achievable) / Image Gently techniques. Clinical history: right sided facial numbness with recent chiropractor manipulation Comparison: CTA head and neck 10/27/2024, MRI brain 10/28/2024 Findings: CTA HEAD: The petrous and cavernous portions of the internal carotid arteries are patent. Anterior cerebral arteries are patent. Middle cerebral artery branches appear patent proximally. Codominant vertebral artery posterior circulation. The basilar artery is patent. The posterior cerebral arteries are patent. There is no extra-axial collection. The ventricles are normal in size. The basal cisterns appear normal. The orbital contents appear normal. Paranasal sinuses and mastoid air cells are well aerated. CTA NECK: Conventional 3 vessel origin arising from the aortic arch. Common carotid arteries are patent. There is no significant stenosis involving the proximal internal carotid arteries arteries are patent throughout their course. The parotid and submandibular glands appear normal. The pharyngeal and glottic soft tissues appear normal. The thyroid appears normal. Procedure Note Ayad Gamboa MD - 11/02/2024 [facility] [address] [place], [place] [address] Examination: CTA HEAD+NECK, 11/02/2024 4:30 PM. Technique: Computed tomographic images of the head and neck were obtainedafter the administration of 80 mL of Isovue-370 injected through the IV,without evidence of an adverse reaction. Additional coronal and sagittalreformatted as well as maximum intensity projection images were generatedat a separate workstation. Carotid stenoses were measured according toNASCET criteria. A dose lowering technique was used for this procedure,which may include, but is not limited to, dose reduction technique,automated exposure control, the use of iterative reconstruction, and ALARA(As Low As Reasonably Achievable) / Image Gently techniques. Clinical history: right sided facial numbness with recent chiropractormanipulation Comparison: CTA head and neck 10/27/2024, MRI brain 10/28/2024 Findings: CTA HEAD: The petrous and cavernous portions of the internal carotidarteries are patent. Anterior cerebral arteries are patent. Middlecerebral artery branches appear patent proximally. Codominant vertebralartery posterior circulation. The basilar artery is patent. The posteriorcerebral arteries are patent. There is no extra-axial collection. The ventricles are normal in size. Thebasal cisterns appear normal. The orbital contents appear normal.Paranasal sinuses and mastoid air cells are well aerated. CTA NECK: Conventional 3 vessel origin arising from the aortic arch.Common carotid arteries are patent. There is no significant stenosisinvolving the proximal internal carotid arteries arteries are patentthroughout their course. The parotid and submandibular glands appear normal. The pharyngeal andglottic soft tissues appear normal. The thyroid appears normal. IMPRESSION: 1. Patent proximal intracranial arterial vasculature. 2. No significant stenosis involving the proximal internal carotidarteries. Patent carotid and vertebral arteries throughout their course. Ordered By: JOSÉ MIGUEL IQBAL Interpreted By: Ayad Gamboa MD, 11/02/2024 5:01 PM José Miguel Iqbal DO CT Final Result * CT HEAD WO CON (11/02/2024 4:47 PM CDT) Only the most recent of2 resultswithin the time period is included. Anatomical Region Laterality Modality Head Computed Tomogra phy 11/02/2024 5:01 PM CDT Impressions 11/02/2024 5:05 PM CDT IMPRESSION: No CT evidence of an acute intracranial abnormality. Ordered By: JOSÉ MIGUEL IQBAL Interpreted By: Ayad Gamboa MD, 11/02/2024 5:01 PM Narrative 11/02/2024 5:05 PM CDT [address] [address] Examination: CT HEAD WO CON, 11/02/2024 4:30 PM. Technique: Computed tomographic images of the head were obtained without intravenous contrast. Additional coronal and sagittal reformatted images were generated at a separate workstation. A dose lowering technique was used for this procedure, which may include, but is not limited to, dose reduction technique, automated exposure control, the use of iterative reconstruction, and ALARA (As Low As Reasonably Achievable) / Image Gently techniques. Clinical history: Headache with recent chiropractor Comparison: CT head 10/27/2024 Findings: There is no acute intracranial hemorrhage. There is no extra-axial fluid collection. Preserved jiménez-white matter differentiation. The ventricles are normal in size. The basal cisterns appear normal. Orbital contents appear normal. Paranasal sinuses are otherwise well aerated. Retention cyst within the right frontal sinus. Mastoid air cells are well aerated. No acute fracture Procedure Note Ayad Gamboa MD - 11/02/[address] [address] Examination: CT HEAD WO CON, 11/02/2024 4:30 PM. Technique: Computed tomographic images of the head were obtained withoutintravenous contrast. Additional coronal and sagittal reformatted imageswere generated at a separate workstation. A dose lowering technique wasused for this procedure, which may include, but is not limited to, dosereduction technique, automated exposure control, the use of iterativereconstruction, and ALARA (As Low As Reasonably Achievable) / Image Gentlytechniques. Clinical history: Headache with recent chiropractor Comparison: CT head 10/27/2024 Findings: There is no acute intracranial hemorrhage. There is no extra-axial fluidcollection. Preserved jiménez-white matter differentiation. The ventriclesare normal in size. The basal cisterns appear normal. Orbital contentsappear normal. Paranasal sinuses are otherwise well aerated. Retentioncyst within the right frontal sinus. Mastoid air cells are well aerated.No acute fracture IMPRESSION: No CT evidence of an acute intracranial abnormality. Ordered By: JOSÉ MIGUEL IQBAL Interpreted By: Ayad Gamboa MD, 11/02/2024 5:01 PM José Miguel Iqbal DO CT Final Result * SED RATE, ERYTHROCYTE (ESR) (11/02/2024 12:00 PM CDT) Only the most recent of2 resultswithin the time period is included. ESR 2 <30 MM/HR 11/02/2024 12:21 PM CDT [facility] Comment:Testing performed on [employer] iSED. 11/02/2024 12:0 0 PM CDT [facility] Final Resul t [facility] [address] [place] [address], [place] [phone] * (ABNORMAL) COMPREHENSIVE METABOLIC PANEL (11/02/2024 12:00 PM CDT) Only the most recent of2 resultswithin the time period is included. GLUCOSE 90 70 - 99 MG/DL 11/02/2024 12:42 PM CDT [facility] BUN 13 7 - 18 MG/DL 11/02/2024 12:42 PM CDT [facility] CREATININE S/P/B 0.95 0.55 - 1.02 MG/DL 11/02/2024 12:42 PM CDT [facility] SODIUM S/P/B 139 136 - 145 MMOL/L 11/02/2024 12:42 PM CDT [facility] POTASSIUM S/P/B 4.1 3.5 - 5.1 MMOL/L 11/02/2024 12:42 PM CDT [facility] CHLORIDE S/P/B 106 97 - 115 MMOL/L 11/02/2024 12:42 PM CDT [facility] CO2 28.5 21 - 32 MMOL/L 11/02/2024 12:42 PM CDT [facility] CALCIUM S/P/B 9.5 8.5 - 10.1 MG/DL 11/02/2024 12:42 PM CDT [facility] BILIRUBIN TOTAL S/P/B 0.9 0.2 - 1.2 MG/DL 11/02/2024 12:42 PM CDT [facility] Comment: THIS ASSAY IS NOT RECOMMENDED FOR PATIENTS UNDERGOING TREATMENT WITH ELTROMBOPAG DUE TO THE POTENTIAL FOR FALSELY ELEVATED RESULTS. TOTAL PROTEIN S/P/B 7.8 6.4 - 8.2 G/DL 11/02/2024 12:42 PM CDT [facility] ALBUMIN S/P/B 3.8 3.4 - 5.0 G/DL 11/02/2024 12:42 PM CDT [facility] AST 20 15 - 37 U/L 11/02/2024 12:42 PM T [facility] ALT 34 14 - 55 U/L 11/02/2024 12:42 PM T [facility] ALKALINE PHOSPHATASE S/P/B 89 50 - 136 U/L 11/02/2024 12:42 PM T [facility] ANION GAP 4.5 2 - 10 MMOL/L 11/02/2024 12:42 PM CDT [facility] BUN CREATININE RATIO 13.7 6 - 26 11/02/2024 12:42 PM T [facility] A/G RATIO 1.0 1.0 - 2.0 RATIO 11/02/2024 12:42 PM CDT [facility] GFR ESTIMATE 73(L) >90 ML/MIN/1.7 3 M2 11/02/2024 12:42 PM CDT [facility] Comment: NOTE: eGFR is not calculated for patients <18 years of age or gender unknown. This is an estimated GFR calculation using the new CKD EPI creatinine equation without race and so does not require a correction factor for race. This estimated GFR should not be used for calculating drug doses. 11/02/2024 12:0 0 PM CDT us [facility] Final Resul t [facility] [address] [place] [address], [place] [phone] * (ABNORMAL) CBC W/DIFF AUTOMATED (11/02/2024 12:00 PM CDT) Only the most recent of5 resultswithin the time period is included. WBC 7.87 4.5 - 11.0 x10'3/uL 11/02/2024 12:36 PM CDT [facility] RBC 4.81 4.20 - 5.40 x10'6/uL 11/02/2024 12:36 PM CDT [facility] HGB 14.5 12.0 - 16.0 G/DL 11/02/2024 12:36 PM CDT [facility] HCT 43.7 38.0 - 48.0 % 11/02/2024 12:36 PM CDT [facility] MCV 90.9 81.0 - 99.0 FL 11/02/2024 12:36 PM CDT [facility] MCH 30.1 27.0 - 31.0 PG 11/02/2024 12:36 PM CDT [facility] MCHC 33.2 32.0 - 36.0 G/DL 11/02/2024 12:36 PM CDT [facility] RDW 12.9 11.5 - 14.5 % 11/02/2024 12:36 PM CDT [facility] PLT 290 130 - 400 x10'3/uL 11/02/2024 12:36 PM CDT [facility] MPV 10.2 9.3 - 12.2 FL 11/02/2024 12:36 PM CDT [facility] DIFFERENTIAL TYPE AUTOMATED DIFFERENTIAL 11/02/2024 12:36 PM CDT [facility] NEUTROPHILS % 60.6 % 11/02/2024 12:36 PM CDT [facility] LYMPHOCYTES % 25.5 % 11/02/2024 12:36 PM CDT [facility] MONOCYTES % 5.0 % 11/02/2024 12:36 PM CDT [facility] EOSINOPHILS 7.2 % 11/02/2024 12:36 PM CDT [facility] BASOPHILS 1.1 % 11/02/2024 12:36 PM CDT [facility] IMMATURE GRANS % 0.6 % 11/03/19 25 12:36 PM CDT [facility] ABS. NEUTROPHILS 4.76 1.80 - 7.70 x10'3/uL 11/02/2024 12:36 PM CDT [facility] ABS. LYMPHOCYTES 2.01 1.00 - 4.80 x10'3/uL 11/02/2024 12:36 PM CDT [facility] ABS. MONOCYTES 0.39 0.24 - 0.86 x10'3/uL 11/02/2024 12:36 PM CDT [facility] ABS. EOSINOPHILS 0.57(H) 0.04 - 0.36 x10'3/uL 11/02/2024 12:36 PM CDT [facility] ABS. BASOPHILS 0.09(H) 0.01 - 0.08 x10'3/uL 11/02/2024 12:36 PM CDT [facility] ABS. IMMATURE GRANULOCYTES 0.05 0.00 - 0.49 x10'3/uL 11/02/2024 12:36 PM CDT [facility] 11/02/2024 12:0 0 PM CDT us [facility] Final Resul t [facility] [address] [place] [address], [place] [phone] * (ABNORMAL) BASIC METABOLIC PANEL (10/30/2024 6:00 AM CDT) Only the most recent of3 resultswithin the time period is included. [facility] GLUCOSE 86 70 - 99 MG/DL 10/30/2024 6:40 AM CDT [facility] BUN 20(H) 7 - 18 MG/DL 10/30/2024 6:40 AM CDT [facility] CREATININE S/P/B 0.92 0.55 - 1.02 MG/DL 10/30/2024 6:40 AM CDT [facility] SODIUM S/P/B 141 136 - 145 MMOL/L 10/30/2024 6:40 AM CDT [facility] POTASSIUM S/P/B 4.0 3.5 - 5.1 MMOL/L 10/30/2024 6:40 AM CDT [facility] CHLORIDE S/P/B 110 97 - 115 MMOL/L 10/30/2024 6:40 AM CDT [facility] CO2 26.5 21 - 32 MMOL/L 10/30/2024 6:40 AM CDT [facility] CALCIUM S/P/B 9.4 8.5 - 10.1 MG/DL 10/30/2024 6:40 AM CDT [facility] ANION GAP 4.5 2 - 10 MMOL/L 10/30/2024 6:40 AM CDT [facility] BUN CREATININE RATIO 21.8 6 - 26 10/30/2024 6:40 AM CDT [facility] GFR ESTIMATE 75(L) >90 ML/MIN/1.7 3 M2 10/30/2024 6:40 AM CDT [facility] Comment: NOTE: eGFR is not calculated for patients <18 years of age or gender unknown. This is an estimated GFR calculation using the new CKD EPI creatinine equation without race and so does not require a correction factor for race. This estimated GFR should not be used for calculating drug doses. 10/30/2024 6:00 AM CDT Mabel Ferguson DO LABORATORY Final Result [facility] [address] [place] [address], [place] [phone] * XR CHEST PORTABLE (10/28/2024 9:30 PM CDT) Only the most recent of2 resultswithin the time period is included. Anatomical Region Laterality Modality Chest Radiographic Fern ging 10/28/2024 9:57 PM CDT Impressions 10/28/2024 9:58 PM CDT IMPRESSION: Normal exam. Referred By: Interpreted By: Dinesh Quarles MD, 10/28/2024 9:57 PM Narrative 10/28/2024 9:58 PM CDT [facility] [address] [place], [place] [address] EXAM: XR CHEST PORTABLE DATE: 10/28/2024 2122 hours Comparison 10/27/2024 INDICATION: Chest pain TECHNIQUE: One view FINDINGS: Normal heart and pulmonary vessel size. Lungs are clear. No pleural effusion. Normal appearance of the bones. Procedure Note Dinesh Quarles MD - 10/28/2024 [facility] [address] [place], [place] [address] EXAM: XR CHEST PORTABLE DATE: 10/28/2024 2122 hours Comparison 10/27/2024 INDICATION: Chest pain TECHNIQUE: One view FINDINGS: Normal heart and pulmonary vessel size. Lungs are clear. Nopleural effusion. Normal appearance of the bones. IMPRESSION: Normal exam. Referred By: Interpreted By: Dinesh Quarles MD, 10/28/2024 9:57 PM Good Samayoa MD GENERAL IMAGING Final Result * TSH W/REFLEX (10/28/2024 9:25 PM CDT) Pathologist [facility] TSH 1.090 0.358 - 3.74 uIU/ML 10/28/2024 10:24 PM CDT [facility] Comment: HIGH DOSES OF BIOTIN MAY INTERFERE WITH THIS TEST RESULT. CORRELATION TO CLINICAL HISTORY AND PRESENTATION RECOMMENDED. FREE T4 NOT INDICATED 10/28/2024 9:25 PM CDT us Good Samayoa MD LABORATORY Final Result [facility] [address] [place] [address], [place] [phone] * TROPONIN, QUANT (10/28/2024 9:25 PM CDT) Only the most recent of2 resultswithin the time period is included. Pathologist [facility] TROPONIN I HIGH SENSITIVITY 10 <54 ng/L 10/28/2024 10:24 PM CDT [facility] Comment: HIGH DOSES OF BIOTIN, TROPONIN-SPECIFIC AUTOANTIBODIES, AND ANTIBODY THERAPY CONTAINING HAMA MAY INTERFERE WITH THIS TEST RESULT. CORRELATION TO CLINICAL HISTORY AND PRESENTATION RECOMMENDED. 10/28/2024 9:25 PM CDT Good Samayoa MD LABORATORY Final Result Performing Organization Address City/[facility] Co de Phone Number [facility] [address] [place] [address], [place] [phone] * (ABNORMAL) POCT glucose (10/28/2024 9:15 PM CDT) Only the most recent of4 resultswithin the time period is included. [facility] GLUCOSE POC 123(H) 70 - 99 mg/dL 10/28/2024 9:39 PM CDT [facility] 10/28/2024 9:15 PM CDT Christiano Irby MD POCT ORDERABLES - DEVICE Roberta l Result Performing Organization Address [facility] Co de Phone Number [address] [address], [place] [phone] * ECG 12 lead (10/28/2024 9:11 PM CDT) Only the most recent of2 resultswithin the time period is included. 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1975 Requested By: GOOD SAMAYOA Order Number: [id number] Reading : Bari [place] Measurements Intervals [place] Rate: 65 P: 24 MI: 173 QRS: 61 QRSD: 83 T: 43 QT: 411 QTc: 430 Interpretive Statements SINUS RHYTHM LOW QRS VOLTAGE IN PRECORDIAL LEADS [QRS DEFLECTION < 1.0 mV IN CHEST LEADS] Compared to ECG 10/27/2024 12:41:59 Low QRS voltage now present Procedure Note Bari [place] MD - 10/30/[address] Test Date: 2024-10-28 Pat Name: [facility] Department: Room: [facility] Gender: Female 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 : 1975 Requested By: GOOD SAMAYOA Order Number: [id number] Reading MD: Bari [place] Measurements Intervals [place] Rate: 65 P: 24 MI: 173 QRS: 61 QRSD: 83 T: 43 QT: 411 QTc: 430 Interpretive Statements SINUS RHYTHM LOW QRS VOLTAGE IN PRECORDIAL LEADS [QRS DEFLECTION < 1.0 mV IN CHESTLEADS] Compared to ECG 10/27/2024 12:41:59 Low QRS voltage now present us Good Samayoa MD ECG ORDERABLES Final Result [facility] ([facility]) RAD * MRI BRAIN W CON (10/28/2024 8:47 PM CDT) Anatomical Region Laterality Modality Head Magnetic Resonan ce 10/28/2024 9:05 PM CDT Impressions 10/28/2024 9:09 PM CDT IMPRESSION: 1. No acute intracranial abnormalities or abnormal intracranial enhancement identified. 2. Scattered small patchy signal abnormalities in the hemispheric white matter and charly. Findings could be due to early small vessel disease, but are nonspecific. No corresponding abnormal enhancement. Ordered By: MORALES SEXTON Interpreted By: Hawk Funes MD, 10/28/2024 9:05 PM Narrative 10/28/2024 9:09 PM CDT [place] [address] EXAMINATION: MRI BRAIN W CON EXAM TIME: 10/28/2024 7:42 PM CLINICAL HISTORY: Concern for multiple sclerosis COMPARISON: Unenhanced MRI 10/27/2024 TECHNIQUE: Sagittal FLAIR images were obtained. Axial postcontrast 3-D T1 images of the brain were obtained after uneventful intravenous administration of 20 mL Dotarem. FINDINGS: Post contrast images reveal no definite abnormal intracranial enhancement. Patchy foci of FLAIR hyperintensity noted in the hemispheric white matter and charly, nonspecific. No definite foci of abnormal FLAIR signal identified in the corpus callosum or callososeptal interface. No intracranial mass, mass effect, or midline shift. No extra-axial collections. Procedure Note Hawk Funes MD - 10/28/[address] [address] EXAMINATION: MRI BRAIN W CON EXAM TIME: 10/28/2024 7:42 PM CLINICAL HISTORY: Concern for multiple sclerosis COMPARISON: Unenhanced MRI 10/27/2024 TECHNIQUE: Sagittal FLAIR images were obtained. Axial postcontrast 3-D K5bslkor of the brain were obtained after uneventful intravenousadministration of 20 mL Dotarem. FINDINGS: Post contrast images reveal no definite abnormal intracranial enhancement.Patchy foci of FLAIR hyperintensity noted in the hemispheric white matterand charly, nonspecific. No definite foci of abnormal FLAIR signalidentified in the corpus callosum or callososeptal interface. Nointracranial mass, mass effect, or midline shift. No extra-axialcollections. IMPRESSION: 1. No acute intracranial abnormalities or abnormal intracranialenhancement identified. 2. Scattered small patchy signal abnormalities in the hemispheric whitematter and charly. Findings could be due to early small vessel disease, butare nonspecific. No corresponding abnormal enhancement. Ordered By: MORALES SEXTON Interpreted By: Hawk Funes MD, 10/28/2024 9:05 PM Morales Sexton DO MRI Final Result * MRI LUMB SPINE WWO CON (10/28/2024 8:47 PM CDT) Anatomical Region Laterality Modality Spine Magnetic Resonan ce 10/28/2024 9:30 PM CDT Impressions 10/28/2024 9:33 PM CDT IMPRESSION: 1. Multilevel degenerative changes in the lumbar spine, as detailed above. 2. Uterine fibroids. Ordered By: MORALES SEXTON Interpreted By: Hawk Funes MD, 10/28/2024 9:30 PM Narrative 10/28/2024 9:33 PM CDT [address] [address] DATE: 10/28/2024 7:42 PM INDICATION: Concern for multiple sclerosis. EXAMINATION: MRI lumbar spine without and with contrast. TECHNIQUE: Multiplanar and multisequence MRI images of the lumbar spine were obtained before and after uneventful intravenous administration of 20 mL Dotarem. COMPARISON: None FINDINGS: There are 5 lumbar type vertebral bodies designated as L1 through L5; using this numbering system, the conus medullaris terminates at the L1-L2 junction and appears unremarkable. There is slight retrolisthesis of L5 on S1. Otherwise the lumbar vertebral alignment, vertebral body heights, and facet alignment are maintained. No definite abnormal enhancement identified along the conus or visualized cauda equina. Multilevel degenerative changes are evident in the lumbar spine with disc degeneration, endplate osteophytes, ligamentum flavum thickening, and facet hypertrophy noted. Scattered vertebral hemangiomas incidentally noted. Imaged portions of the soft tissues reveal no acute findings. Probable uterine fibroids. L1-L2: Mild facet hypertrophy. No canal or foraminal narrowing. L2-L3: Tiny disc bulge. Mild facet hypertrophy. No canal or foraminal narrowing. L3-L4: Mild disc bulge. Mild facet hypertrophy. No significant canal or foraminal narrowing. L4-L5: Disc bulge with extension into the foramina. Small left foraminal protrusion with annular fissure. Ligamentum flavum thickening. Facet hypertrophy. Mild canal stenosis. Mild foraminal narrowing. L5-S1: Slight retrolisthesis. Disc bulge with extension into the foramina. Central protrusion. Facet hypertrophy. No significant canal stenosis. Mild foraminal narrowing. Procedure Note Hawk Funes MD - 10/28/[address] [address] DATE: 10/28/2024 7:42 PM INDICATION: Concern for multiple sclerosis. EXAMINATION: MRI lumbar spine without and with contrast. TECHNIQUE: Multiplanar and multisequence MRI images of the lumbar spine were obtainedbefore and after uneventful intravenous administration of 20 mL Dotarem. COMPARISON: None FINDINGS: There are 5 lumbar type vertebral bodies designated as L1 through L5;using this numbering system, the conus medullaris terminates at the L1-B3lwwausll and appears unremarkable. There is slight retrolisthesis of L5 on S1. Otherwise the lumbar vertebralalignment, vertebral body heights, and facet alignment are maintained. Nodefinite abnormal enhancement identified along the conus or visualizedcauda equina. Multilevel degenerative changes are evident in the lumbarspine with disc degeneration, endplate osteophytes, ligamentum flavumthickening, and facet hypertrophy noted. Scattered vertebral hemangiomasincidentally noted. Imaged portions of the soft tissues reveal no acute findings. Probableuterine fibroids. L1-L2: Mild facet hypertrophy. No canal or foraminal narrowing. L2-L3: Tiny disc bulge. Mild facet hypertrophy. No canal or foraminalnarrowing. L3-L4: Mild disc bulge. Mild facet hypertrophy. No significant canal orforaminal narrowing. L4-L5: Disc bulge with extension into the foramina. Small left foraminalprotrusion with annular fissure. Ligamentum flavum thickening. Facethypertrophy. Mild canal stenosis. Mild foraminal narrowing. L5-S1: Slight retrolisthesis. Disc bulge with extension into the foramina.Central protrusion. Facet hypertrophy. No significant canal stenosis. Mildforaminal narrowing. IMPRESSION: 1. Multilevel degenerative changes in the lumbar spine, as detailedabove. 2. Uterine fibroids. Ordered By: MORALES SEXTON Interpreted By: Hawk Funes MD, 10/28/2024 9:30 PM us Morales Sexton DO MRI Final Result * MRI THOR SPINE WWO CON (10/28/2024 8:46 PM CDT) Anatomical Region Laterality Modality Spine Magnetic Resonan ce 10/28/2024 9:25 PM CDT Impressions 10/28/2024 9:30 PM CDT IMPRESSION: 1. No definite abnormal signal or enhancement identified in the thoracic cord to suggest underlying demyelinating disease. 2. Mild degenerative changes as detailed above. Ordered By: MORALES SEXTON Interpreted By: Hawk Funes MD, 10/28/2024 9:25 PM Narrative 10/28/2024 9:30 PM CDT [address] [address] DATE: 10/28/2024 7:42 PM INDICATION: Concern for multiple sclerosis. EXAMINATION: MRI of the thoracic spine without and with contrast. TECHNIQUE: Multiplanar and multisequence MRI images of the thoracic spine were obtained before and after uneventful intravenous administration of 20 mL Dotarem. COMPARISON: None FINDINGS: The thoracic vertebral alignment, vertebral body heights, and facet alignment are maintained. No definite abnormal signal or enhancement identified in the thoracic cord. Mild degenerative changes are evident in the thoracic spine with disc degeneration, small endplate osteophytes, and mild facet hypertrophy noted. Scattered vertebral hemangiomas, largest at T12. Imaged portions of the soft tissues reveal no definite acute findings. Relevant individual intervertebral levels discussed below. T3-T4: Small central protrusion. Flattening of the ventral thecal sac and abutment of the ventral cord. Foramina patent. T6-T7: Tiny disc bulge. No canal or foraminal narrowing. T8-T9: Left paracentral protrusion. Flattening of the left ventral thecal sac and indentation of the left ventral cord. Foramina patent. Procedure Note Hawk Funes MD - 10/28/2024 [facility] [address] [place], [place] [address] DATE: 10/28/2024 7:42 PM INDICATION: Concern for multiple sclerosis. EXAMINATION: MRI of the thoracic spine without and with contrast. TECHNIQUE: Multiplanar and multisequence MRI images of the thoracic spinewere obtained before and after uneventful intravenous administration of 20mL Dotarem. COMPARISON: None FINDINGS: The thoracic vertebral alignment, vertebral body heights, and facetalignment are maintained. No definite abnormal signal or enhancementidentified in the thoracic cord. Mild degenerative changes are evident inthe thoracic spine with disc degeneration, small endplate osteophytes, andmild facet hypertrophy noted. Scattered vertebral hemangiomas, largest atT12. Imaged portions of the soft tissues reveal no definite acutefindings. Relevant individual intervertebral levels discussed below. T3-T4: Small central protrusion. Flattening of the ventral thecal sac andabutment of the ventral cord. Foramina patent. T6-T7: Tiny disc bulge. No canal or foraminal narrowing. T8-T9: Left paracentral protrusion. Flattening of the left ventral thecalsac and indentation of the left ventral cord. Foramina patent. IMPRESSION: 1. No definite abnormal signal or enhancement identified in the thoraciccord to suggest underlying demyelinating disease. 2. Mild degenerative changes as detailed above. Ordered By: MORALES SEXTON Interpreted By: Hawk Funes MD, 10/28/2024 9:25 PM Morales Sexton DO MRI Final Result * MRI CERV SPINE WWO CON (10/28/2024 8:36 PM CDT) Anatomical Region Laterality Modality Spine Magnetic Resonan ce 10/28/2024 9:10 PM CDT Impressions 10/28/2024 9:25 PM CDT IMPRESSION: 1. No definite abnormal signal or enhancement identified in the cervical cord to suggest underlying demyelinating disease. 2. Mild degenerative changes in the cervical spine, as detailed above. Ordered By: MORALES SEXTON Interpreted By: Hawk Funes MD, 10/28/2024 9:10 PM Narrative 10/28/2024 9:25 PM [address] [address] DATE: 10/28/2024 7:41 PM INDICATION: Concern for multiple sclerosis. EXAMINATION: MRI of the cervical spine without and with contrast. TECHNIQUE: Multiplanar and multisequence MRI images of the cervical spine were obtained before and after uneventful intravenous administration of 20 mL Dotarem. COMPARISON: None FINDINGS: The cervical vertebral alignment, vertebral body heights, and facet alignment are maintained. No definite abnormal signal or enhancement identified in the cervical cord. Mild degenerative changes are evident in the cervical spine with disc degeneration, small endplate/uncovertebral osteophytes, and mild facet hypertrophy noted. Multilevel disc desiccation. Craniocervical junction unremarkable. Please refer to prior MRI exams for description of intracranial findings. Partially imaged mucosal thickening in the paranasal sinuses. C2-C3: Tiny central protrusion. No canal or foraminal narrowing. C3-C4: Tiny central protrusion. Small uncovertebral osteophytes. Mild facet hypertrophy. No significant canal or foraminal narrowing. C4-C5: Mild disc bulge and tiny central protrusion. Small uncovertebral osteophytes. Mild facet hypertrophy. No significant canal stenosis. Mild right foraminal narrowing. C5-C6: Mild disc bulge and tiny central protrusion. Small uncovertebral osteophytes. Mild ligamentum flavum thickening. Mild facet hypertrophy. No significant canal stenosis. Mild foraminal narrowing. C6-C7: Mild facet hypertrophy. No significant canal or foraminal narrowing. C7-T1: Mild facet hypertrophy. No significant canal or foraminal narrowing. Procedure Note Hawk Funes MD - 10/28/2024 [facility] [address] [place], [place] [address] DATE: 10/28/2024 7:41 PM INDICATION: Concern for multiple sclerosis. EXAMINATION: MRI of the cervical spine without and with contrast. TECHNIQUE: Multiplanar and multisequence MRI images of the cervical spinewere obtained before and after uneventful intravenous administration of 20mL Dotarem. COMPARISON: None FINDINGS: The cervical vertebral alignment, vertebral body heights, and facetalignment are maintained. No definite abnormal signal or enhancementidentified in the cervical cord. Mild degenerative changes are evident inthe cervical spine with disc degeneration, small endplate/uncovertebralosteophytes, and mild facet hypertrophy noted. Multilevel discdesiccation. Craniocervical junction unremarkable. Please refer to prior MRI exams fordescription of intracranial findings. Partially imaged mucosal thickeningin the paranasal sinuses. C2-C3: Tiny central protrusion. No canal or foraminal narrowing. C3-C4: Tiny central protrusion. Small uncovertebral osteophytes. Mildfacet hypertrophy. No significant canal or foraminal narrowing. C4-C5: Mild disc bulge and tiny central protrusion. Small uncovertebralosteophytes. Mild facet hypertrophy. No significant canal stenosis. Mildright foraminal narrowing. C5-C6: Mild disc bulge and tiny central protrusion. Small uncovertebralosteophytes. Mild ligamentum flavum thickening. Mild facet hypertrophy. Nosignificant canal stenosis. Mild foraminal narrowing. C6-C7: Mild facet hypertrophy. No significant canal or foraminalnarrowing. C7-T1: Mild facet hypertrophy. No significant canal or foraminalnarrowing. IMPRESSION: 1. No definite abnormal signal or enhancement identified in the cervicalcord to suggest underlying demyelinating disease. 2. Mild degenerative changes in the cervical spine, as detailed above. Ordered By: MORALES SEXTON Interpreted By: Hawk Funes MD, 10/28/2024 9:10 PM Morales Sexton DO MRI Final Result * (ABNORMAL) C-REACTIVE PROTEIN (10/28/2024 10:04 AM CDT) C-REACTIVE PROTEIN 0.45(H) <0.29 mg/dL 10/28/2024 12:03 PM CDT [facility] 10/28/2024 10:0 4 AM CDT us Morales Sexton DO LABORATORY Final Result [facility] [address] [place] [address], [place] [phone] * MRI BRAIN WO STROKE FAST PROTOCOL (10/27/2024 4:45 PM CDT) Anatomical Region Laterality Modality Head, Neck Magnetic Resonan ce 10/27/2024 5:26 PM CDT Impressions 10/27/2024 5:29 PM CDT IMPRESSION: No acute findings. No evidence of acute infarct. Referred By: Interpreted By: Emily Painting DO, 10/27/2024 5:26 PM Narrative 10/27/2024 5:29 PM CDT [facility] [address] [place], [place] [address] MRI BRAIN WO STROKE FAST PROTOCOL: 10/27/2024 4:28 PM CLINICAL INFORMATION: rule out stroke vs TIA COMPARISON: None. TECHNIQUE: Multiplanar, multisequence MR imaging of the brain without contrast. Contrast: None. FINDINGS: Brain: Scattered foci of T2 hyperintensity within the periventricular and subcortical white matter, otherwise parenchymal signal and morphology are unremarkable. No diffusion restriction. No abnormal susceptibility. Ventricles/CSF spaces: Normal. Vascular: Intracranial flow voids are normal. Orbits: Normal. Paranasal sinuses: Layering mucus within the right sphenoid sinus with mild mucosal thickening. Mastoids/middle ears: Trace right mastoid air cell effusion. Bones: Normal. Scalp/facial soft tissues: Unremarkable. Procedure Note Emily Painting DO - 10/27/2024 [facility] [address] [place], [place] [address] MRI BRAIN WO STROKE FAST PROTOCOL: 10/27/2024 4:28 PM CLINICAL INFORMATION: rule out stroke vs TIA COMPARISON: None. TECHNIQUE: Multiplanar, multisequence MR imaging of the brain withoutcontrast. Contrast: None. FINDINGS: Brain: Scattered foci of T2 hyperintensity within the periventricular andsubcortical white matter, otherwise parenchymal signal and morphology areunremarkable. No diffusion restriction. No abnormal susceptibility. Ventricles/CSF spaces: Normal. Vascular: Intracranial flow voids are normal. Orbits: Normal. Paranasal sinuses: Layering mucus within the right sphenoid sinus withmild mucosal thickening. Mastoids/middle ears: Trace right mastoid air cell effusion. Bones: Normal. Scalp/facial soft tissues: Unremarkable. IMPRESSION: No acute findings. No evidence of acute infarct. Referred By: Interpreted By: Emily Painting DO, 10/27/2024 5:26 PM Morales Sexton DO MRI Final Result * USE ECHOCARDIOGRAM W CON (10/27/2024 4:41 PM CDT) Anatomical Region Laterality Modality NA Echocardiogram 10/27/2024 3:30 PM CDT Narrative 10/28/2024 8:19 AM CDT Echocardiography Report Pat.Name: AZARKATHLEEN Hanks Pat.ID: [id number] .Date: 10/27/2024 Exam Time: 3:30:00 PM Study Type:ECHO WITH CARDIAC DOPPLER COMP Height: 69 in Weight: 191 lb BSA: 2.03 m2 Age: 2 1975,49Y Sex: F BP: 154/68 HR: 57 bpm Sonogrphr: Mirela Weber Pat. Stat.:Inpatient Room: ER19 Reason for Study:Rule out PFO Procedures: 2D, M-mode, Doppler, Color Flow, Definity was used to enhance endocardial definition. Intraveneous saline contrast was used to help determine presence of intracardiac shunting. The study quality is technically difficult. Race: W ++++++++++++++++++++++++++++++++++++ SUMMARY: ++++++++++++++++++++++++++++++++++++ The left ventricular size is normal. Estimated left ventricular ejection fraction is 65-70%. There is no left ventricular hypertrophy. Left ventricular diastolic function is normal. The right ventricular size is normal. Right ventricular systolic function is normal. The left atrial volume is normal ( less than 34 ml/M2). Right atrial size is normal. The agitated saline injection showed no clear evidence of shunting into the left atrium, consistent with no patent foramen ovale. No significant valvular abnormalities. Right ventricular systolic pressure is not reliably assessed. ++++++++++++++++++++++++++++++++++++ FINDINGS: ++++++++++++++++++++++++++++++++++++ LV: The left ventricular size is normal. Estimated left ventricular ejection fraction is 65-70%. There is no left ventricular hypertrophy. Left ventricular diastolic function is normal. WM: Wall motion appears normal in all segments. RV: The right ventricular size is normal. Right ventricular systolic function is normal. IVS: No evidence of ventricular septal defect. LA: The left atrial size is normal. The left atrial volume is normal ( less than 34 ml/M2). RA: Right atrial size is normal. IAS: The agitated saline injection showed no clear evidence of shunting into the left atrium, consistent with no patent foramen ovale. FAHEEM: No evidence of pericardial effusion. AO: Normal aortic root. PA: Estimated right atrial pressure of 3 mmHg. SVn: Inferior vena cava is normal. AV: The aortic valve is trileaflet. No evidence of aortic valve stenosis. No evidence of aortic regurgitation. MV: Trace mitral regurgitation. No evidence of mitral valve stenosis. PV: Trace pulmonic regurgitation. No evidence of pulmonic valve stenosis. TV: A trace of tricuspid regurgitation. Right ventricular systolic pressure is not reliably assessed. No evidence of tricuspid valve stenosis. ++++++++++++++++++++++++++++++++++++ MEASUREMENTS: ++++++++++++++++++++++++++++++++++++ DOPPLER LVOT LVOTpkPG 3 mmHg LVOTmnPG 1 mmHg LVOTpkVel 83.6 cm/s (70-110)+ LVOT SV 62 ml LVOT TVI 19.8 cm LVOT CO 78.3 ml/s AV Forward Flow AV TVI 23 cm AV pkPG 4 mmHg AV pkVel 100 cm/s (100-170)+ Area (TVI) 2.7 cm2 (3-5)* AV mnPG 3 mmHg Area (Hakeem) 2.63 cm2 (3-5)* MV Forward Flow MV DeTm 197 msec MV pkE 97.1 cm/s (60-130) MV E/A 1.1 MV pkA 86.9 cm/s PV Forward Flow PV pkVel 86.3 cm/s (60-90)+ PV AC 141 msec PV pkPG 3 mmHg PV Regurg Flow PV pkVel 75.2 cm/s TV Regurg Flow TV pkPG 17 mmHg TV pkVel 204 cm/s (30-70)* Lat E' Lat e 11.2 cm/s Lat E/E' Lat E/e 8.7 Med E' Med e 10.6 cm/s Med E/E' Med E/e 9.2 Aortic Valve Aortic Valve Ar 1.33 Aortic Valve Ve 0.84 PV Antegrade Flow Acceleration Sl 638 cm/s2 PV Regurgitant Flow Peak Gradient ( 2 mmHg Right Atrium Boyd's Disk 20 Right Ventricle Right Ventricle 13.8 cm/s 2D Left Ventricle LVIDd 4.09 cm (3.6-5.2)+ LV ESV 33.6 ml LVIDs 2.62 cm (2.3-3.9)+ LV ESV 38.4 ml LngAxd 8.19 cm LVESV BP 37.2 ml LngAxd 8.51 cm LV EF 67.4 % LV EDV 103 ml LV EF 67.2 % LV EDV 117 ml LV EF BP 66.8 % LVEDV BP 112 ml LV SV 69.4 ml LngAxs 6.28 cm LV SV 78.6 ml LngAxs 6.83 cm LV SV BP 74.8 ml LVPW LVPWd 0.788 cm Right Ventricle RVIDd 3.58 cm (2.6-4.3)+ Right Ventricle 21.2 mm Right Ventricle 30.5 mm Right and Left 0.875 Major [place] 58.6 mm Ventricular Septum IVSd 0.909 cm Left Atrium LA a-p 3.1 cm (2.8-3.4) Aorta Ao Rtd 3 cm (zsc 0.3) LVOT LVOT 2 cm LVOTArea 3.14 cm2 Ratios IVS Right Atrium Minor [place] 33.9 mm RA Single Plane Right Atrium MO 7.56 mm Right Atrium Sy 29.6 ml Right Atrium Sy 43.5 mm Right Atrium Sy 14.6 ml/m2 Right Atrium Sy 12.7 cm2 MMODE TA Tricuspid Annul 26.3 mm <Electronic Signature> 10/28/2024 08:19 AM Dominique Davis M.D. Procedure Note Dominique Davis MD - 10/28/2024 Echocardiography Report Pat.Name: KATHLEEN AZAR Pat.ID: [id number] .Date: 10/27/2024 Exam Time: 3:30:00 PM Study Type:ECHO WITH CARDIAC DOPPLER COMP Height: 69 in Weight: 191 lb BSA: 2.03 m2 Age: 2 1975,49Y Sex: F BP: 154/68 HR: 57 bpm Sonogrphr: Mirela Weber Pat. Stat.:Inpatient Room: ER19 Reason for Study:Rule out PFO Procedures: 2D, M-mode, Doppler, Color Flow, Definity was used to enhance endocardial definition. Intraveneous saline contrast was used to help determine presence of intracardiac shunting. The study quality is technically difficult. Race: W ++++++++++++++++++++++++++++++++++++ SUMMARY: ++++++++++++++++++++++++++++++++++++ The left ventricular size is normal. Estimated left ventricular ejection fraction is 65-70%. There is no left ventricular hypertrophy. Left ventricular diastolic function is normal. The right ventricular size is normal. Right ventricular systolic function is normal. The left atrial volume is normal ( less than 34 ml/M2). Right atrial size is normal. The agitated saline injection showed no clear evidence of shunting into the left atrium, consistent with no patent foramen ovale. No significant valvular abnormalities. Right ventricular systolic pressure is not reliably assessed. ++++++++++++++++++++++++++++++++++++ FINDINGS: ++++++++++++++++++++++++++++++++++++ LV: The left ventricular size is normal. Estimated left ventricular ejection fraction is 65-70%. There is no left ventricular hypertrophy. Left ventricular diastolic function is normal. WM: Wall motion appears normal in all segments. RV: The right ventricular size is normal. Right ventricular systolic function is normal. IVS: No evidence of ventricular septal defect. LA: The left atrial size is normal. The left atrial volume is normal ( less than 34 ml/M2). RA: Right atrial size is normal. IAS: The agitated saline injection showed no clear evidence of shunting into the left atrium, consistent with no patent foramen ovale. FAHEEM: No evidence of pericardial effusion. AO: Normal aortic root. PA: Estimated right atrial pressure of 3 mmHg. SVn: Inferior vena cava is normal. AV: The aortic valve is trileaflet. No evidence of aortic valve stenosis. No evidence of aortic regurgitation. MV: Trace mitral regurgitation. No evidence of mitral valve stenosis. PV: Trace pulmonic regurgitation. No evidence of pulmonic valve stenosis. TV: A trace of tricuspid regurgitation. Right ventricular systolic pressure is not reliably assessed. No evidence of tricuspid valve stenosis. ++++++++++++++++++++++++++++++++++++ MEASUREMENTS: ++++++++++++++++++++++++++++++++++++ DOPPLER LVOT LVOTpkPG 3 mmHg LVOTmnPG 1 mmHg LVOTpkVel 83.6 cm/s (70-110)+ LVOT SV 62 ml LVOT TVI 19.8 cm LVOT CO 78.3 ml/s AV Forward Flow AV TVI 23 cm AV pkPG 4 mmHg AV pkVel 100 cm/s (100-170)+ Area (TVI) 2.7 cm2 (3-5)* AV mnPG 3 mmHg Area (Hakeem) 2.63 cm2 (3-5)* MV Forward Flow MV DeTm 197 msec MV pkE 97.1 cm/s (60-130) MV E/A 1.1 MV pkA 86.9 cm/s PV Forward Flow PV pkVel 86.3 cm/s (60-90)+ PV AC 141 msec PV pkPG 3 mmHg PV Regurg Flow PV pkVel 75.2 cm/s TV Regurg Flow TV pkPG 17 mmHg TV pkVel 204 cm/s (30-70)* Lat E' Lat e 11.2 cm/s Lat E/E' Lat E/e 8.7 Med E' Med e 10.6 cm/s Med E/E' Med E/e 9.2 Aortic Valve Aortic Valve Ar 1.33 Aortic Valve Ve 0.84 PV Antegrade Flow Acceleration Sl 638 cm/s2 PV Regurgitant Flow Peak Gradient ( 2 mmHg Right Atrium Boyd's Disk 20 Right Ventricle Right Ventricle 13.8 cm/s 2D Left Ventricle LVIDd 4.09 cm (3.6-5.2)+ LV ESV 33.6 ml LVIDs 2.62 cm (2.3-3.9)+ LV ESV 38.4 ml LngAxd 8.19 cm LVESV BP 37.2 ml LngAxd 8.51 cm LV EF 67.4 % LV EDV 103 ml LV EF 67.2 % LV EDV 117 ml LV EF BP 66.8 % LVEDV BP 112 ml LV SV 69.4 ml LngAxs 6.28 cm LV SV 78.6 ml LngAxs 6.83 cm LV SV BP 74.8 ml LVPW LVPWd 0.788 cm Right Ventricle RVIDd 3.58 cm (2.6-4.3)+ Right Ventricle 21.2 mm Right Ventricle 30.5 mm Right and Left 0.875 [place] 58.6 mm Ventricular Septum IVSd 0.909 cm Left Atrium LA a-p 3.1 cm (2.8-3.4) Aorta Ao Rtd 3 cm (zsc 0.3) LVOT LVOT 2 cm LVOTArea 3.14 cm2 Ratios IVS Right Atrium Minor [place] 33.9 mm RA Single Plane Right Atrium [place] 7.56 mm Right Atrium Sy 29.6 ml Right Atrium Sy 43.5 mm Right Atrium Sy 14.6 ml/m2 Right Atrium Sy 12.7 cm2 MMODE TA Tricuspid Annul 26.3 mm <Electronic Signature> 10/28/2024 08:19 AM Dominique Davis M.D. Morales Sexton DO ECHO Final Result * HEMOGLOBIN, GLYCATED (10/27/2024 2:54 PM CDT) HGB A1C 5.2 <5.7 % 10/27/2024 8:14 PM CDT [facility] Comment: ADA GUIDELINES 2010 5.7 TO 6.4% INCREASED RISK OF DIABETES > OR = 6.5% CONSISTENT WITH DIABETES ESTIMATED AVG GLUCOSE 103 mg/dL 10/27/2024 8:14 PM CDT [facility] 10/27/2024 2:54 PM CDT Morales Sexton DO LABORATORY Final Result [facility] [address] [place] [address], [place] [phone] * THYROID STIM HORMONE, TSH (10/27/2024 2:54 PM CDT) TSH 1.510 0.358 - 3.74 uIU/ML 10/27/2024 3:37 PM CDT [facility] Comment: HIGH DOSES OF BIOTIN MAY INTERFERE WITH THIS TEST RESULT. CORRELATION TO CLINICAL HISTORY AND PRESENTATION RECOMMENDED. 10/27/2024 2:54 PM CDT Morales Sexton DO LABORATORY Final Result [facility] [address] [place] [address], * (ABNORMAL) LIPID PANEL (10/27/2024 2:52 PM CDT) CHOLESTEROL 210(H) <200 MG/DL 10/27/2024 4:29 PM CDT [facility] TRIGLYCERIDES 111 <150 MG/DL 10/27/2024 4:29 PM CDT [facility] HDL 52 >40.0 MG/DL 10/27/2024 4:29 PM CDT [facility] LDL (CALCULATED) 136(H) <100 MG/DL 10/27/2024 4:29 PM CDT [facility] NON HDL CHOLESTEROL 158(H) <130 MG/DL 10/27/2024 4:29 PM CDT [facility] CHOL/HDL RATIO 4.0 0.0 - 4.5 10/27/2024 4:29 PM CDT [facility] VLDL CALCULATION 22 5 - 55 MG/DL 10/27/2024 4:29 PM CDT [facility] LIPID INTERPRETATION 10/27/2024 4:29 PM CDT [facility] Comment: [facility]ENS[facility] REPORT RECOMMENDATIONS: ADULT CHILD LOW RISK: CHOLESTEROL <200 <170 TRIGLYCERIDE <150 --- HDL >=60 --- LDL <100 <110 BORDERLINE: CHOLESTEROL 200-239 170-199 TRIGLYCERIDE 150-199 --- HDL 40-59 --- LDL 100-159 110-129 HIGH RISK: CHOLESTEROL >=240 >=200 TRIGLYCERIDE >=200 --- HDL <40 --- LDL >=160 >=130 10/27/2024 2:52 PM CDT Morales Sexton DO LABORATORY Final Result [facility] [address] [place] [address], [place] [phone] * (ABNORMAL) URINALYSIS, AUTO, COMPLETE (10/27/2024 11:55 AM CDT) SPECIMEN TYPE URINE CLEAN CATCH 10/27/2024 11:55 AM CDT [facility] COLOR (U) LIGHT YELLOW 10/27/2024 12:25 PM CDT [facility] TRANSPARENCY CLEAR 10/27/2024 12:25 PM CDT [facility] SPECIFIC GRAVITY (U) 1.023 1.001 - 1.030 10/27/2024 12:25 PM CDT [facility] U PH 6.0 5.0 - 9.0 10/27/2024 12:25 PM CDT [facility] LEUKOCYTES (U) NEGATIVE NEGATIVE 10/27/2024 12:25 PM CDT [facility] NITRITES NEGATIVE NEGATIVE 10/27/2024 12:25 PM CDT [facility] PROTEIN RANDOM (U) NEGATIVE <30 MG/DL 10/27/2024 12:25 PM CDT [facility] GLUCOSE (U) NORMAL NORMAL MG/DL 10/27/2024 12:25 PM CDT [facility] KETONES MG/DL (U) NEGATIVE NEGATIVE MG/DL 10/27/2024 12:25 PM CDT [facility] UROBILINOGEN NORMAL NORMAL MG/DL 10/27/2024 12:25 PM CDT [facility] BILIRUBIN (U) NEGATIVE NEGATIVE MG/DL 10/27/2024 12:25 PM CDT [facility] BLOOD (U) TRACE(A) NEGATIVE 10/27/2024 12:25 PM CDT [facility] MUCUS RARE /LPF 10/27/2024 12:25 PM CDT [facility] WBC/HPF 2 <6 /HPF 10/27/2024 12:25 PM CDT [facility] RBC/HPF 5 <6 /HPF 10/27/2024 12:25 PM CDT [facility] SQUAMOUS EPITHELIALS RARE /HPF 10/27/2024 12:25 PM CDT [facility] URINE SPECIMEN OBTAINED BY CLEAN CATCH PROCEDURE / Unknown 10/27/2024 11:55 AM CDT [facility] URINE ORDERABLES Final Res ult [facility] [address] [place] [address], [place] [phone] * PROTIME/INR, VENOUS (10/27/2024 11:53 AM CDT) PROTIME 10.9 10.2 - 12.9 SEC 10/27/2024 12:35 PM CDT [facility] INR 1.0 10/27/2024 12:35 PM CDT [facility] Comment: Recommended INR Therapeutic Goals: 2.0-3.0 Routine Therapy 2.5-3.5 Mechanical Prosthetic Valves (High Risk) 10/27/2024 11:5 3 AM CDT [facility] LABORATORY Final Resu lt [facility] [address] [place] [address], [place] [phone] from Last 3 Months Insurance [facility] Advance Directives Documents on File Type Date Recorded 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 FOR HB BILLS FOR [place] FOR [employer] Advance Directives and Living Will 07/06/2019 10:48 AM * Full Code (Latest Code Status on File) Date Activated Date Inactivated Comments 10/27/2024 2:08 PM 10/30/2024 2:17 PM Care Teams Marriage And Family Teacher Relationship Specialty Start Date End Date Brea Boggs DO [address] [place] [address] PCP - General FAMILY PRACTICE 10/27/24 Dale Wallace MD,PHD Physician CARDIOVASCULAR DISEASE 10/28/22
--- OUTSIDE RECORDS SUMMARY | 2025-01-17 10:33 | XMS_ITS | Clinical Summary ---
Author Organization [facility] Address [address] [place] [address] Care Team Providers Care Personal Lines Sales Rep Name Role Phone Unknown, Provider Primary Care Provider Unavaila ble Source Comments [facility],non-owned Affiliates and Associated Physician Practices is amultiple site organization consisting of ambulatory clinics and hospital sitesin [place], [place] and [place]. This disclosure is being madepursuant to the Care Everywhere program and may not contain all information available regarding this patient. Last updated 18.[facility] Kabam Allergies No known active allergies Medications * [...] - 12/28/2024 11:59 PM CDT Hospital Encounter [facility] [address] [facility] [place] [address] Suraj Bosch MD Discharge Disposition: Home or Self Care 12/28/2024 1:30 PM CDT Office Visit [facility] [address] [facility] [address] Suraj Bosch MD Superior labrum atcsjqox-dd-gqafadop r (SLAP) tear of left shoulder (Primary Dx) 12/23/2024 Orders Only [facility] - [facility]opedics [address] [place] [address], [facility] [address] Suraj Bosch MD Left shoulder pain, unspecified [...] of Phone Billing Address Personal/Family [address] [place] [address] SELF PAY NO INSURANCE Member Subscriber Plan / Payer (Ef fective for All Dates) Name:Kathleen Azar Member ID:Not on file Relation to Subscriber:Not on file Name:KATHLEEN AZAR Subscriber ID:Not on file Address: [address] [place] [address] Payer ID:Not on file Group ID:Not on file Type:Self Pay Address: [place], [place] * Guarantor: KATHLEEN AZAR Account Type Relation to Patient Date of Phone Billing Address Personal/Family [address] [place] [address] Care Teams Personal Lines Sales Rep Relationship Specialty Start Date End Date Unknown, Provider PCP - General 12/06/24
--- NOTE | 2025-01-17 10:36 | ED.LOWEXIN ---
HPI - Extremity Injury (Lower) General Chief Complaint: Extremity Injury, Lower Stated Complaint: right ankle pain Time Seen by Provider: 01/17/25 09:50 History of Present Illness HPI Narrative: Patient is a 49-year-old female who presents to the ER with right foot pain. She reports she was playing pickleball yesterday and rolled her ankle. Patient reports she went to [facility] where they put an OCL on her. She reports she is unable to move her toes and endorses significant pain to the dorsal portion of her R foot. Patient denies any medical history relevant to this ER visit. She denies any calf pain, decreased range of motion in her right ankle, or wade pain. Related Data Home Medications ?Medication ?Instructions ?Recorded ?Confirmed ?Last Taken ?Type polysaccharide iron complex 200 mg 200 mg PO DAILY 12/12/23 11/04/24 Unknown History iron capsule (EZFE 200) Bacillus coagulans 800 million cell PO 11/17/24 Unknown History cell tablet Allergies Allergy/AdvReac Type Severity Reaction Status Date / Time shrimp Allergy Difficulty Verified 11/17/24 08:11 Swallowing Review of Systems Review of Systems: All systems reviewed & are unremarkable except as noted in HPI and below PMFSH Past Medical History Medical History Food impaction of esophagus Asthma Overweight (BMI 25.0-29.9) Eosinophilic esophagitis Surgical History Surgical History H/O tubal ligation Family History Family History Mother Family history of pancreatic disease Other Diabetes mellitus Family history of mental disorder Social History Social History Smoking status: Never smoker Alcohol intake: current Alcohol use details: 1 or 2 drinks a year Substance use: never Substance use type: does not use Other substance usage details: denies IVDU Lack of Transportation: No Lack of Food: Never True Current Housing: I Have Housing Concerned About Future Housing: No Difficulty Paying Gas/Electric Bills: No Difficulty Paying for Meds: No Currently Unemployed: No Education: Trade/Vocational Certificate Difficulty w/ Childcare or Family Care: No Living arrangements: with family Occupation/Education: occupation Gender identity (if verbalized by the patient): Female Spiritual care concerns: No Agree to blood products: Yes Exam Narrative: GENERAL: Well appearing, well-nourished, non-toxic, in no acute distress. HEAD: Normocephalic, atraumatic. NECK: Supple. No adenopathy, no masses. RESPIRATORY: Airway patent, respirations nonlabored. Clear to auscultation bilaterally, no rales, rhonchi, wheezing. CARDIOVASCULAR: Regular rate and rhythm without murmurs, rubs, or gallops. Peripheral pulses 2+ and equal bilaterally. ABDOMINAL: Soft, nontender, nondistended, no hepatosplenomegaly. Normoactive BS. MUSCULOSKELETAL: Moves all extremities. Strength/ROM intact without gross deformities. SKIN: Warm, dry, normal color. + bruising dorsal portion of R foot approximately tennis ball-sized, oval shaped NEURO: A&O X3. Speech clear. Cranial nerves II-XII intact. No ataxic movements. PSYCHIATRIC: Appropriate mood and affect. Normal interaction. Course Vital Signs Vital signs: Vital Signs Temperature 36.2 C L 01/17/25 09:38 Pulse Rate 63 01/17/25 09:38 Respiratory Rate 18 01/17/25 09:38 Blood Pressure 139/77 01/17/25 09:38 Pulse Oximetry 97 01/17/25 09:38 Oxygen Delivery Room Air 01/17/25 09:38 Temperature 36.2 C L 01/17/25 09:38 Pulse Rate 63 01/17/25 09:38 Respiratory Rate 18 01/17/25 09:38 Blood Pressure 139/77 01/17/25 09:38 Pulse Oximetry 97 01/17/25 09:38 Oxygen Delivery Room Air 01/17/25 09:38 MDM - Extremity Injury (Lower) MDM Narrative Medical decision making narrative: Patient is a 49-year-old female who presents to the ER with right foot pain. She reports she was playing pickleball yesterday and rolled her ankle. Patient reports she went to [facility] where they put an OCL on her. She reports she is unable to move her toes and endorses significant pain to the dorsal portion of her R foot. Patient denies any medical history relevant to this ER visit. She denies any calf pain, decreased range of motion in her right ankle, or wade pain. Labs Ordered: None necessary Imaging Ordered: Right foot x-ray, right ankle x-ray Medications Ordered: Patient declined Results: Pt's R x-rays indicates No acute fracture or dislocation is appreciated. No significant degenerative disease is noted. The base of the fifth metatarsal is intact. No calcaneal spur is noted. No significant soft tissue swelling is present. Diagnosis: Right ankle sprain Consults: orthopedic surgery, Dr. Walden (outpatient) Patient Education/Shared MDM: Results of imaging shared with patient. She continues to decline pain medication administration. Patient strongly advised to follow-up with orthopedic surgery as soon as possible. She will not be discharged home with any new prescriptions. Strict return precautions provided. Patient verbalized understanding and is in agreement with plan. Vital signs stable at time of discharge. All questions answered. Differential Diagnosis Differential diagnosis: Likely ankle sprain and strain, ankle fracture and other (Right ankle hematoma) Imaging Data Attestation: I personally reviewed and interpreted this imaging study as follows: Radiologist's impression: Impressions Ankle X-Ray 01/17/25 10:26 IMPRESSION: Unremarkable radiographic evaluation of the right ankle, as detailed above. Foot X-Ray 01/17/25 10:27 IMPRESSION: Unremarkable radiographic evaluation of the right foot, as detailed above. Discharge Plan Discharge Clinical Impression: Ankle sprain and strain, Pain in right ankle Patient Disposition: Home Condition: Stable Instructions: Antibiotic Form Additional Instructions: Please return to the ER with any worsening symptoms. Follow-up with orthopedic surgery as soon as possible. Take all medications as prescribed, including regularly scheduled medications. You may take Tylenol and ibuprofen together for pain relief. Patient Language: [place]se Prescriptions: No Action Bacillus coagulans 800 million cell tablet PO EZFE 200 200 mg iron capsule 200 mg PO DAILY ibuprofen 600 mg tablet 600 mg PO TID PRN (Reason: pain) Qty: 30 0RF acetaminophen 500 mg capsule 1,000 mg PO Q6H PRN (Reason: pain) Qty: 30 0RF Follow-up/Referrals: Xavier Walden MD [Physician] - (orthopedics ) Brea Boggs DO [Primary Care Provider] - Time of Disposition: 11:27
--- NOTE | 2025-01-17 12:00 | PC.NURSE ---
Posterior leg splint placed on right leg by laminating machine operator helper. Patient and family education patient on calling ortho consult and keeping splint dry. Patient educated on how to ambulate, patient stated she has crutches in car.
== END 2025-01-17 12:03 | disposition home or self-care (01) ==
PROVIDERS: Emergency Provider Registered Nurse; PCP Family Medicine
DX: S93.401A Sprain of unspecified ligament of right ankle, initial encounter (principal); X50.0XXA Overexertion from strenuous movement or load, initial encounter; J45.909 Unspecified asthma, uncomplicated
CPT/HCPCS: 73600; 73620; 99283